=== PATIENT | male | born 1940 | race Caucasian/White ===

== ENCOUNTER → 2018-07-20 | Outpatient (CLI) | payer MEDICARE ==
--- NOTE | 2018-07-20 13:50 | RADIOLOGY REPORT (SQ) ---
EXAM DESCRIPTION: CT CHEST WITHOUT COMPLETED DATE/TIME: 07/20/2018 10:05 am REASON FOR STUDY: DYSPNEA (R06.00) R06.00 DYSPNEA, UNSPECIFIED COMPARISON: Chest radiograph 2008 TECHNIQUE: CT scan performed of the chest without intravenous contrast. Images reviewed with lung, soft tissue and bone windows. Reconstructed coronal and sagittal MPR images reviewed. All images st ored on PACS. All CT scanners at this facility use dose modulation, iterative reconstruction, and/or weight based d osing when appropriate to reduce radiation dose to as low as reasonably achievable (ALARA). [facility]: Dose Right [facility]: CareDose [facility]: Dose Right [facility]: Teradose 4D [facility]: [employer] RADIATION DOSE: CT Rad equipment meets quality standard of care and radiation dose reduction techniq ues were employed. CTDIvol: 9.5 mGy. DLP: 403 mGy-cm. mGy. LIMITATIONS: No technical limitations. FINDINGS: LUNGS AND PLEURA: Extensive apical scarring. Generalized emphysematous changes. HILAR AND MEDIASTINAL STRUCTURES: No identified masses or abnormal nodes. No obvious aneurysm. HEART AND VASCULAR STRUCTURES: No aneurysm. No pericardial effusion. UPPER ABDOMEN: No significant findings. Limited exam. THYROID AND OTHER SOFT TISSUES: No masses. No adenopathy. BONES: No significant finding. HARDWARE: None in the chest. OTHER: No other significant findings. IMPRESSION: Severe emphysematous changes. Extensive apical scarring and right midzone scarring. TECHNICAL DOCUMENTATION: JOB ID: [id number] Quality ID # [id number]: Final reports with documentation of one or more dose reduction techniques (e.g., Au tomated exposure control, adjustment of the mA and/or kV according to patient size, use of iterative reconstruction technique) 2010 [employer]- All Rights Reserved Reading location - IP/workstation name: [email or web address]
[2018-07-21 12:37] LABS: ANTICHROMATIN AB <0.2 AI (0.0-0.9); CENTROMERE B AB <0.2 AI (0.0-0.9); JO-1 ANTIBODY (ANACOMP) <0.2 AI (0.0-0.9); SJOGREN'S ANTI-SS-B AB <0.2 AI (0.0-0.9); SJOGREN'S SS-A ANTIBODY <0.2 AI (0.0-0.9)
[2018-07-21 14:38] LABS: DNA DOUBLE STRAND ANTIBODY ANA 3 IU/mL (0-9)
[2018-07-21 15:37] LABS: CYTOPLASMIC (C-ANCA) <1:20 titer (Neg:<1:20)
[2018-07-22 07:10] LABS: ATYPICAL PANCA <1:20 titer (Neg:<1:20); PERINUCLEAR (P-ANCA) <1:20 titer (Neg:<1:20)
== END ==
LOC: RAD 09:42
PROVIDERS: ATTEND Internal Medicine Pulmonary Disease
DX: J43.9 Emphysema, unspecified (principal); R06.00 Dyspnea, unspecified
CPT/HCPCS: 36415; 71250; 86021; 86225; 86235; 86430

== ENCOUNTER → 2019-10-22 | Outpatient (CLI) | payer MEDICARE ==
--- NOTE | 2019-10-22 09:33 | RADIOLOGY REPORT (SQ) ---
EXAM DESCRIPTION: CT CHEST WITHOUT COMPLETED DATE/TIME: 10/22/2019 9:17 am REASON FOR STUDY: (J43.2)CENTRILOBULAR EMPHYSEMA J43.2 CENTRILOBULAR EMPHYSEMA COMPARISON: CT chest 07/21/2019, 07/20/2018 TECHNIQUE: CT scan performed of the chest without intravenous contrast. Images reviewed with lung, soft tissue and bone windows. Reconstructed coronal and sagittal MPR images reviewed. All images st ored on PACS. All CT scanners at this facility use dose modulation, iterative reconstruction, and/or weight based d osing when appropriate to reduce radiation dose to as low as reasonably achievable (ALARA). [facility]: Dose Right [facility]: CareDose [facility]: Dose Right [facility]: Teradose 4D [facility]: [employer] RADIATION DOSE: CT Rad equipment meets quality standard of care and radiation dose reduction techniq ues were employed. CTDIvol: 3.9 mGy. DLP: 170 mGy-cm. mGy. LIMITATIONS: No technical limitations. FINDINGS: LUNGS AND PLEURA: End-stage appearance of obstructive lung disease with massive hyperinfla tion and hyperlucency. Biapical stable pleuroparenchymal scarring is present. No worrisome nodules. No acute infiltrates. No pleural effusion or pneumothorax. HILAR AND MEDIASTINAL STRUCTURES: No identified masses or abnormal nodes. No obvious aneurysm. HEART AND VASCULAR STRUCTURES: No aneurysm. No pericardial effusion. Calcified aortic valve, heavil y calcified coronary arteries UPPER ABDOMEN: No significant findings. Limited exam. THYROID AND OTHER SOFT TISSUES: No masses. No adenopathy. BONES: No significant finding. HARDWARE: None in the chest. OTHER: No other significant findings. IMPRESSION: Obstructive lung disease. TECHNICAL DOCUMENTATION: JOB ID: [id number] Quality ID # [id number]: Final reports with documentation of one or more dose reduction techniques (e.g., Au tomated exposure control, adjustment of the mA and/or kV according to patient size, use of iterative reconstruction technique) 2010 [employer]- All Rights Reserved Reading location - IP/workstation name: [email or web address]
== END ==
LOC: RAD 08:47
PROVIDERS: ATTEND Internal Medicine Pulmonary Disease
DX: J43.2 Centrilobular emphysema (principal)
CPT/HCPCS: 71250

== ENCOUNTER 2020-06-26 16:01 | Inpatient (IN) | payer MEDICARE ==
--- NOTE | 2020-06-26 17:08 | ER Document Report ---
ED General - General Chief Complaint: Shortness Of Breath Stated Complaint: BREATHING PROBLEMS Time Seen by Provider: 06/26/20 17:07 Primary Care Provider: SANIYA TUTTLE MD [Primary Care Provider] - Follow up as needed TRAVEL OUTSIDE OF THE [place] IN LAST 30 DAYS: No - HPI Notes: 79-year-old male presents with shortness of breath. Patient has a history of COPD on chronic home O2 ranging between 3 to 4 L. He is noted increased shortness of breath from his baseline for the past 3 to 4 days, has become progressively worse. He has a cough which is productive of a brown thick sputum and then notes he has a white thin sputum that comes from his nose. He is on chronic prednisone. EMS was at his house today, he said he received a nebulizer treatment but overall refused transfer to the ED. 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 He states that he was swabbed for Covid but is he is unsure of the results. He states at home mostly and has had exposure with about a dozen or so family members. He denies chest pain, fever, GI symptoms. - Related Data Home Medications: silvastatin, advair, ipratropium, prednisone, ventoin Past Medical History - General Information source: Patient - Social History Smoking Status: Former Smoker Family History: Reviewed & Not Pertinent Pulmonary Medical History: Reports: Hx COPD Review of Systems - Review of Systems Constitutional: denies: Fever EENT: Nose congestion Cardiovascular: denies: Chest pain Respiratory: Cough, Short of breath Gastrointestinal: No symptoms reported Genitourinary: No symptoms reported Male Genitourinary: No symptoms reported Musculoskeletal: No symptoms reported Skin: No symptoms reported Hematologic/Lymphatic: No symptoms reported Neurological/Psychological: No symptoms reported Physical Exam - Vital signs Vitals: Resp Pulse Ox 29 H 98 06/26/20 16:12 06/26/20 16:12 - General General appearance: Alert - HEENT Head: Normocephalic, Atraumatic Extraocular movements intact: Yes Pupils: PERRL Neck: Supple - Respiratory Respiratory status: Other - Able to speak in full sentences though with audible wheezing. No: Tripod position Breath sounds: Decreased air movement, Wheezing - Cardiovascular Rhythm: Regular Heart sounds: Normal auscultation Normal capillary refill: Yes - Abdominal Tenderness: Nontender - Rectal Stool: Heme negative - Extremities General lower extremity: No: Edema - Neurological Neuro grossly intact: Yes Cognition: Normal Orientation: AAOx4 - Psychological Associated symptoms: Normal affect - Skin Skin Temperature: Warm Course - Re-evaluation Re-evalutation: 75-year-old male history COPD on chronic home O2 here with progressively worsening shortness of breath from baseline with productive cough. On exam patient has audible wheezing, though he is able to speak in full sentences, he has fairly decreased air movement in the lower lung moreno. His oxygen saturations are appropriate on supplemental oxygen. Concern for COPD exacerbation, have ordered DuoNeb, Solu-Medrol and magnesium. Concerned that he may have acute viral process causing exacerbation, have ordered Covid and influenza swabs. He is at risk for bacterial pneumonia as well. Will start with initial treatments and reassess. EKG is nonischemic. 06/26/20 18:18 Hemoglobin has resulted at 4.3, this was rechecked twice. Have ordered type and screen and iron studies as he appears to have a severe microcytic anemia. With WBC and platelets within normal limits. Electrolytes within normal limits, creatinine within normal limits, no UTI 06/26/20 18:50 Patient has been consented for blood. He denies dark or tarry stools. Denies previous known history of anemia. Hemoccult is negative 06/26/20 19:39 Chest x-ray reviewed, per radiology there with concern for CHF based on the appearance, I did check a BNP which has now resulted at greater than 9000. Have ordered 20 mg IV Lasix as he is going to get 2 units of blood 06/26/20 19:53 [address] with admission with Dr. Saenz. He requests rapid Covid and surgical consultation given the new anemia. Will be admitted to [facility] 06/26/20 19:57 Dr. Martinez will see the patient in consultation during his admission - Vital Signs Vital signs: Temp Pulse Resp BP Pulse Ox 23 H 109/56 L 100 06/26/20 18:01 06/26/20 19:00 06/26/20 19:01 - Laboratory Result Diagrams: 06/26/20 17:25 06/26/20 16:23 Laboratory results interpreted by me: 06/26/20 06/26/20 06/26/20 16:23 16:23 17:25 RBC 2.92 L Hgb 4.3 L* Hct 16.9 L MCV 58 L MCH 14.8 L MCHC 25.6 L RDW 21.0 H Carbon Dioxide 38 H Anion Gap 4 L BUN 26 H NT-Pro-B Natriuret Pep 9080 H Total Protein 6.2 L Albumin 3.4 L Urine Protein Ur Leukocyte Esterase Crossmatch 06/26/20 06/26/20 17:25 18:01 RBC Hgb Hct MCV MCH MCHC RDW Carbon Dioxide Anion Gap BUN NT-Pro-B Natriuret Pep Total Protein Albumin Urine Protein 30 H Ur Leukocyte Esterase LARGE H Crossmatch See Detail - Diagnostic Test Radiology reviewed: Image reviewed, Reports reviewed - EKG Interpretation by Me Additional EKG results interpreted by me: EKG is interpreted by me. Sinus rhythm, rate 91. Slightly prolonged QRS with RBBB, QTC within normal limits. No ST segment elevation or depressions. Discharge - Discharge Clinical Impression: COPD exacerbation, Microcytic anemia, Transfusion of blood during current hospitalisation, Elevated brain natriuretic peptide (BNP) level Disposition: ADMITTED INPATIENT Admitting Provider: Dany (Hospitalist) Unit Admitted: IMCU Referrals: SANIYA TUTTLE MD [Primary Care Provider] - Follow up as needed
[2020-06-26 17:09] LABS: BLOOD UREA NITROGEN 26 mg/dL (7-20); CALCIUM 8.4 mg/dL (8.4-10.2); GLUCOSE 99 mg/dL (75-110)
[2020-06-26 17:10] LABS: ALBUMIN 3.4 g/dL (3.5-5.0); ALKALINE PHOSPHATASE 74 U/L (38-126); ASPARTATE AMINO TRANSFERASE 26 U/L (17-59); BILIRUBIN,DIRECT 0.1 mg/dL (0.0-0.4); BILIRUBIN,TOTAL 0.6 mg/dL (0.2-1.3); CARBON DIOXIDE 38 mmol/L (22-30); CHLORIDE 100 mmol/L (98-107); POTASSIUM 4.8 mmol/L (3.6-5.0); TOTAL PROTEIN 6.2 g/dL (6.3-8.2)
[2020-06-26] MEDS ORDERED: METHYLPREDNISOLONE INJ 125 MG/2 ML SDV IV ONE (17:17)
[2020-06-26] MEDS ORDERED: IPRATROPIUM/ALBUTEROL 0.5-2.5 MG/3 ML AMPUL NEB ONE ×2 (17:17→18:55)
[2020-06-26] MEDS ORDERED: GUAIFENESIN 600 MG TABLET.SA PO ONE (17:18)
[2020-06-26 17:33] LABS: ANION GAP 4 (5-19)
--- NOTE | 2020-06-26 17:34 | EKG REPORT ---
SEVERITY:- ABNORMAL ECG - SINUS RHYTHM INCOMPLETE RIGHT BUNDLE BRANCH BLOCK : Confirmed by: Obi Turcios MD 26-Jun-2020 17:34:23
--- NOTE | 2020-06-26 17:44 | RADIOLOGY REPORT (SQ) ---
EXAM DESCRIPTION: CHEST SINGLE VIEW IMAGES COMPLETED DATE/TIME: 06/26/2020 5:19 pm REASON FOR STUDY: SOB COMPARISON: 08/24/2008 EXAM PARAMETERS: NUMBER OF VIEWS: One view. TECHNIQUE: Single frontal radiographic view of the chest acquired. RADIATION DOSE: NA LIMITATIONS: None. FINDINGS: LUNGS AND PLEURA: Hyper aeration with flattening of the hemidiaphragms. Increased perihil ar lung markings. No focal consolidation. Small bilateral pleural effusions. No pneumothorax. MEDIASTINUM AND HILAR STRUCTURES: No masses. Contour normal. HEART AND VASCULAR STRUCTURES: Cardiomegaly with central vascular congestion. BONES: No acute findings. HARDWARE: None in the chest. OTHER: No other significant finding. IMPRESSION: Constellation of findings suggest CHF exacerbation. Superimposed infection is not exclu ded. TECHNICAL DOCUMENTATION: JOB ID: [id number] 2010 [email or web address]- All Rights Reserved Reading location - IP/workstation name: [email or web address]
[2020-06-26] MEDS: MAGNESIUM SULFATE/D5W 1 GM/100 ML RTUPB IV SCH ×2 (17:46→18:08)
[2020-06-26 17:50] LABS: ABSOLUTE BASOPHILS # (AUTO) 0.1 10^3/uL (0.0-0.2); ABSOLUTE EOSINOPHILS # (AUTO) 0.1 10^3/uL (0.0-0.6); ABSOLUTE LYMPHOCYTES (AUTO) 1.5 10^3/uL (0.5-4.7); ABSOLUTE MONOCYTES (AUTO) 0.8 10^3/uL (0.1-1.4); ABSOLUTE NEUT (AUTO) 6.1 10^3/uL (1.7-8.2); BASOPHILS % (AUTO) 0.6 % (0-2); EOSINOPHILS % (AUTO) 0.7 % (0-6); HEMATOCRIT 16.9 % (37.9-51.0); LYMPHOCYTES % (AUTO) 17.5 % (13-45); MEAN CORPUSCULAR HEMOGLOBIN 14.8 pg (27.0-33.4); MEAN CORPUSCULAR HGB CONC 25.6 g/dL (32.0-36.0); MONOCYTES % (AUTO) 9.2 % (3-13); PLATELET COUNT 280 10^3/uL (150-450); RED BLOOD COUNT 2.92 10^6/uL (4.35-5.55); TOTAL CELLS COUNTED % (AUTO) 100 %; WHITE BLOOD COUNT 8.5 10^3/uL (4.0-10.5)
[2020-06-26 17:52] LABS: MEAN CORPUSCULAR VOLUME 58 fl (80-97)
[2020-06-26 17:58] LABS: HYPOCHROMASIA 3+; POLYCHROMASIA SLIGHT
[2020-06-26 17:59] LABS: ANISOCYTOSIS 3+; OVALOCYTES 1+; PLATELET COMMENT ADEQUATE; POIKILOCYTOSIS 1+; TEAR DROP CELLS SLIGHT
[2020-06-26 18:00] LABS: HEMOGLOBIN 4.3 g/dL (13.5-17.0)
[2020-06-26 18:03] LABS: APPEARANCE,URINE SLIGHTLY-CLOUDY; BILIRUBIN,URINE NEGATIVE (NEGATIVE); COLOR,URINE YELLOW; GLUCOSE, URINE NEGATIVE (NEGATIVE); KETONES,URINE NEGATIVE (NEGATIVE); LEUKOCYTE ESTERASE,URINE LARGE (NEGATIVE); NITRITE,URINE NEGATIVE (NEGATIVE); PROTEIN,URINE 30 mg/dL (NEGATIVE); URINE SPECIFIC GRAVITY 1.014; UROBILINOGEN,URINE NEGATIVE mg/dL (<2.0)
[2020-06-26] MEDS ORDERED: NORMAL SALINE 250 ML IV PRN ×2 (18:48)
[2020-06-26] MEDS ORDERED: DOXYCYCLINE HYCLATE 100 MG TABLET PO ONE (18:49)
[2020-06-26 18:53] LABS: IRON(TIBC) 10.5 ug/dL (49-181)
[2020-06-26 18:56] LABS: ABSOLUTE RETICS # 0.075 10^6/uL (0.028-0.122)
[2020-06-26 18:58] LABS: A TYPE INFLUENZA AG NEGATIVE (NEGATIVE); B INFLUENZA AG NEGATIVE (NEGATIVE)
[2020-06-26 19:30] LABS: FERRITIN 4.73 ng/mL (17.9-464.0)
[2020-06-26] MEDS ORDERED: FUROSEMIDE INJ/PF 20 MG/2 ML SDV IV ONE (19:37)
[2020-06-26 20:03] LABS: FOLATE > 20.00 ng/mL (>2.76)
[2020-06-26] MEDS ORDERED: MAG HYDROX/AL HYDROX/SIMETH SUSP 30 ML UDCUP PO PRN (20:22)
[2020-06-26] MEDS ORDERED: ALBUTEROL SULFATE 0.083% NEB 2.5 MG/3 ML AMPUL NEB PRN (20:22)
[2020-06-26] MEDS ORDERED: ONDANSETRON HCL INJ/PF 4 MG/2 ML SDV IV PRN (20:22)
[2020-06-26] MEDS ORDERED: ACETAMINOPHEN 325 MG TABLET PO PRN (20:22)
--- NOTE | 2020-06-26 21:00 | PDOC H&P ---
History of Present Illness Admission Date/PCP: 06/26/20 20:01 SANIYA TUTTLE MD Patient complains of: Shortness of breath History of Present Illness: JAVIER MARTINEZ is a 79 year old male with history of COPD on 3L nasal cannula, who presents to the hospital with complaint of worsening shortness of breath and cough. Patient has chronic cough as he has extensive smoking history. However in the past 3 days he shortness of breath has progressed and he is having more cough with production of whitish and sometimes yellowish sputum. He reached the point where he felt like he was about to pass out today Because of his shortness of breath. He denies any chest pain. He denies any fevers or chills. He denies any sick exposures. He also denies any history of heart failure or any cardiac problems. He has been having swelling in his lower extremities. However he denies orthopnea PND. He follows with Dr. Junior for his COPD. He denies any hematemesis, hematochezia, melena. His last colonoscopy was several years ago. His voice is very hoarse but he says this is not new and his voice has been the same way for over 10 years. Past Medical History Pulmonary Medical History: Reports: Chronic Obstructive Pulmonary Disease (COPD) Past Surgical History Past Surgical History: Denies: Cardiac Catheterization, Coronary Artery Bypass Graft Social History Smoking Status: Former Smoker Frequency of Alcohol Use: None Hx Recreational Drug Use: No - Advance Directive Resuscitation Status: Full Code Family History Family History: None Parental Family History Reviewed: Yes Children Family History Reviewed: Yes Sibling(s) Family History Reviewed.: Yes Medication/Allergy Allergies/Adverse Reactions: No Known Allergies Allergy (Unverified 06/26/20 22:11) Review of Systems Constitutional: ABSENT: chills, fever(s) Eyes: ABSENT: visual disturbances Nose, Mouth, and Throat: ABSENT: headache(s) Cardiovascular: PRESENT: dyspnea on exertion. ABSENT: chest pain, orthropnea Respiratory: PRESENT: cough, dyspnea Gastrointestinal: ABSENT: abdominal pain, coffee ground emesis, hematemesis, hematochezia, melena, nausea, vomiting Genitourinary: ABSENT: hematuria Musculoskeletal: ABSENT: muscle weakness Integumentary: ABSENT: diaphoresis Neurological: PRESENT: dizziness Psychiatric: ABSENT: anxiety Endocrine: ABSENT: polyuria Hematologic/Lymphatic: ABSENT: easy bleeding Physical Exam Vital Signs: Temp Pulse Resp BP Pulse Ox 23 H 109/56 L 100 06/26/20 18:01 06/26/20 19:00 06/26/20 19:01 Intake & Output 06/25/20 06/26/20 06/27/20 06:59 06:59 06:59 Intake Total 200 Balance 200 Weight 46.266 kg General appearance: PRESENT: no acute distress, cooperative, thin. ABSENT: hard of hearing Eye exam: PRESENT: conjunctiva pale Neck exam: ABSENT: JVD Respiratory exam: PRESENT: crackles, decreased breath sounds, symmetrical, tachypnea, unlabored, other - Conversationally dyspneic. ABSENT: wheezes Cardiovascular exam: PRESENT: RRR, +S1, +S2. ABSENT: tachycardia GI/Abdominal exam: PRESENT: soft. ABSENT: distended, firm, guarding, rebound, rigid, tenderness Extremities exam: PRESENT: pedal edema, +2 edema Neurological exam: PRESENT: alert, awake, oriented to person, oriented to place, oriented to time, oriented to situation Psychiatric exam: ABSENT: agitated, anxious Focused psych exam: ABSENT: pressured speech Skin exam: ABSENT: jaundice Results Laboratory Results: 06/26/20 17:25 06/26/20 16:23 06/26/20 06/26/20 06/26/20 16:23 16:23 16:23 WBC Cancelled RBC Cancelled Hgb Cancelled Hct Cancelled MCV Cancelled MCH Cancelled MCHC Cancelled RDW Cancelled Plt Count Cancelled Seg Neutrophils % Cancelled Retic Count (auto) Sodium 142.3 Potassium 4.8 Chloride 100 Carbon Dioxide 38 H Anion Gap 4 L BUN 26 H Creatinine 0.82 Est GFR ( Amer) > 60 Glucose 99 Calcium 8.4 Iron 10.5 L TIBC 402 % Saturation 3 Ferritin 4.73 L Total Bilirubin 0.6 AST 26 Alkaline Phosphatase 74 Total Protein 6.2 L Albumin 3.4 L Vitamin B12 740.0 Folate > 20.00 Urine Color Urine Appearance Urine pH Ur Specific [place] Urine Protein Urine Glucose (UA) Urine Ketones Urine Blood Urine Nitrite Ur Leukocyte Esterase Urine WBC (Auto) Urine RBC (Auto) Blood Type Antibody Screen 06/26/20 06/26/20 06/26/20 17:25 17:25 17:25 WBC 8.5 RBC 2.92 L Hgb 4.3 L* Hct 16.9 L MCV 58 L MCH 14.8 L MCHC 25.6 L RDW 21.0 H Plt Count 280 Seg Neutrophils % 72.0 Retic Count (auto) 2.60 Sodium Potassium Chloride Carbon Dioxide Anion Gap BUN Creatinine Est GFR ( Amer) Glucose Calcium Iron TIBC % Saturation Ferritin Total Bilirubin AST Alkaline Phosphatase Total Protein Albumin Vitamin B12 Folate Urine Color YELLOW Urine Appearance SLIGHTLY-CLOUDY Urine pH 6.0 Ur Specific [place] 1.014 Urine Protein 30 H Urine Glucose (UA) NEGATIVE Urine Ketones NEGATIVE Urine Blood NEGATIVE Urine Nitrite NEGATIVE Ur Leukocyte Esterase LARGE H Urine WBC (Auto) 83 Urine RBC (Auto) 6 Blood Type Antibody Screen 06/26/20 18:01 WBC RBC Hgb Hct MCV MCH MCHC RDW Plt Count Seg Neutrophils % Retic Count (auto) Sodium Potassium Chloride Carbon Dioxide Anion Gap BUN Creatinine Est GFR ( Amer) Glucose Calcium Iron TIBC % Saturation Ferritin Total Bilirubin AST Alkaline Phosphatase Total Protein Albumin Vitamin B12 Folate Urine Color Urine Appearance Urine pH Ur Specific [place] Urine Protein Urine Glucose (UA) Urine Ketones Urine Blood Urine Nitrite Ur Leukocyte Esterase Urine WBC (Auto) Urine RBC (Auto) Blood Type O POSITIVE Antibody Screen NEGATIVE 06/26/20 16:23 NT-Pro-B Natriuret Pep 9080 H Impressions: Chest X-Ray 06/26/20 16:12 IMPRESSION: Constellation of findings suggest CHF exacerbation. Superimposed infection is not excluded. Assessment and Plan - Diagnosis (1) Iron deficiency anemia due to chronic blood loss Is this a current diagnosis for this admission?: Yes Plan: Severe anemia suspected to be secondary to chronic blood loss. He has not noted any obvious bleeding. Hemodynamically stable. We will have surgery consult for endoscopic evaluation. Transfuse 2 units of PRBC and repeat CBC Monitor closely in IMCU. Check coags (2) COPD exacerbation Is this a current diagnosis for this admission?: Yes Plan: Was informed patient was wheezing on presentation. Not wheezing on my examination but with very diminished breath sounds. Has already received steroids in ER. I will put him on DuoNeb treatments, prednisone and some azithromycin. He does have end-stage COPD and uses oxygen at home. Will benefit from palliative care consultation upon discharge. Consider calling patient's singe winder Dr. Junior in am especially regarding periprocedural assessment. (3) Acute CHF Qualifiers: Heart failure type: unspecified Qualified Code(s): I50.9 - Heart failure, unspecified Is this a current diagnosis for this admission?: Yes Plan: Aggravated by anemia. Possible componenet of RHF from lung disease. Elevated BNP and lower extremity swelling, crackles on exam. Crackles possibly may be due to parenchymal scarring as well which was noted on CT earlier this year. We will diurese gently with 20 mg IV Lasix. We will give a dose in between blood transfusions as well. Check echocardiogram in the morning. EF unknown. (4) Acute on chronic respiratory failure with hypoxia and hypercapnia Is this a current diagnosis for this admission?: Yes Plan: Chronic CO2 retainer likely but patient was significantly conversationally dyspneic during my evaluation. Obtained venous blood gas which shows PCO2 of 90 with respiratory acidosis. Will place on BiPAP through the night. VBG in AM. Continue treatment for COPD. (5) Cachexia Is this a current diagnosis for this admission?: Yes Plan: Likely secondary to COPD. CT chest earlier this year did not identify any masses under showed end-stage obstructive disease. (6) Advanced care planning/counseling discussion Is this a current diagnosis for this admission?: Yes Plan: Discussed CODE STATUS with patient. Patient wants to be a full code. He is also okay with intubation in the absence of cardiac arrest. Okay with endoscopic evaluation. However does not want to remain intubated on mechanical ventilation for over 30 days under any state status. - Time Time Spent with patient: 35 or more minutes Anticipated Discharge Disposition: Home with Home Health Anticipated Discharge Timeframe: within 48 hours
[2020-06-26 21:10] LABS: VENOUS BLOOD BASE EXCESS 12.4 mmol/L; VENOUS BLOOD HCO3 40.4 mmol/L (20-32); VENOUS BLOOD PH 7.27 (7.30-7.42)
[2020-06-26 21:11] LABS: VENOUS BLOOD PCO2 90.4 mmHg (35-63)
[2020-06-26] MEDS: SIMVASTATIN 40 MG TABLET PO SCH (22:53)
[2020-06-26] MEDS ORDERED: MAGNESIUM SULFATE/D5W 1 GM/100 ML RTUPB IV ONE (22:58)
[2020-06-26] MEDS ORDERED: FUROSEMIDE INJ/PF 40 MG/4 ML SDV IV ONE (23:00)
[2020-06-27] MEDS ORDERED: IPRATROPIUM/ALBUTEROL 0.5-2.5 MG/3 ML AMPUL NEB SCH
[2020-06-27] MEDS: IPRATROPIUM/ALBUTEROL 0.5-2.5 MG/3 ML AMPUL NEB SCH ×4 (02:33→20:10)
[2020-06-27 05:35] LABS: INTERNATIONAL RATION (INR) 1.01; PROTHROMBIN TIME 13.5 SEC (11.4-15.4)
[2020-06-27 05:36] LABS: PARTIAL THROMBOPLASTIN TIME 31.8 SEC (23.5-35.8)
[2020-06-27 05:39] LABS: PLATELET COUNT 207 10^3/uL (150-450)
[2020-06-27 05:57] LABS: VENOUS BLOOD BASE EXCESS 12.1 mmol/L; VENOUS BLOOD PH 7.3 (7.30-7.42)
[2020-06-27 06:00] LABS: VENOUS BLOOD PCO2 86.3 mmHg (35-63)
[2020-06-27 06:10] LABS: ANION GAP 6 (5-19); BLOOD UREA NITROGEN 24 mg/dL (7-20); CARBON DIOXIDE 39 mmol/L (22-30); CHLORIDE 96 mmol/L (98-107); GLUCOSE 135 mg/dL (75-110); PHOSPHORUS 4.8 mg/dL (2.5-4.5); POTASSIUM 4.2 mmol/L (3.6-5.0)
[2020-06-27 06:16] LABS: HEMATOCRIT 26.2 % (37.9-51.0); MEAN CORPUSCULAR HEMOGLOBIN 19.8 pg (27.0-33.4); RED BLOOD COUNT 3.98 10^6/uL (4.35-5.55); WHITE BLOOD COUNT 5.5 10^3/uL (4.0-10.5)
[2020-06-27 06:17] LABS: RED CELL DISTRIBUTION WIDTH 30.5 % (11.5-14.0)
[2020-06-27 06:19] LABS: MEAN CORPUSCULAR VOLUME 66 fl (80-97)
[2020-06-27 06:21] LABS: HEMOGLOBIN 7.9 g/dL (13.5-17.0)
[2020-06-27 06:23] LABS: ABSOLUTE LYMPHOCYTES# (MANUAL) 0.4 10^3/uL (0.5-4.7); ABSOLUTE MONOCYTES # (MANUAL) 0.1 10^3/uL (0.1-1.4); BASOPHILS % (MANUAL) 0 % (0-2); EOSINOPHILS % (MANUAL) 0 % (0-6); LYMPHOCYTES % (MANUAL) 7 % (13-45); MONOCYTES % (MANUAL) 2 % (3-13); SEGMENTED NEUTROPHILS % (MAN) 91 % (42-78); TOTAL CELLS COUNTED 100
[2020-06-27 06:28] LABS: TOXIC GRANULATION SLIGHT
[2020-06-27 06:29] LABS: ANISOCYTOSIS 4+; BURR CELLS SLIGHT; OVALOCYTES 3+; POIKILOCYTOSIS 4+; POLYCHROMASIA 2+; SCHISTOCYTES 3+; TEAR DROP CELLS 3+
--- NOTE | 2020-06-27 06:29 | PDOC CONSULTATION ---
Consultation Consult Date: 06/27/20 Provider Consulted: SURGICAL SURGICALIST Consult reason:: Anemia History of Present Illness Admission Date/PCP: 06/26/20 20:01 SANIYA TUTTLE MD History of Present Illness: JAVIER MARTINEZ is a 79 year old male seen in consultation at the request of the hospitalist service. This is a patient with severe, chronic anemia. He reports shortness of breath, lower extremity swelling, malaise, and fatigue. He denies melena, hematochezia, hematemesis, nausea, vomiting, abdominal pain, history of NSAID use, recent smoking, use of oral anticoagulants. The patient is a very poor historian. His last colonoscopy was approximately 15 years ago, and he does not remember the results. He has severe COPD and wears oxygen at home. He reports that his breathing has been worse for the last 1 week. Past Medical History Pulmonary Medical History: Reports: Chronic Obstructive Pulmonary Disease (COPD) Psychiatric Medical History: Denies: Depression Past Surgical History Past Surgical History: Denies: Cardiac Catheterization, Coronary Artery Bypass Graft Social History Smoking Status: Former Smoker Frequency of Alcohol Use: None Hx Recreational Drug Use: No Drugs: None Hx Prescription Drug Abuse: No - Advance Directive Resuscitation Status: Full Code Family History Family History: None Parental Family History Reviewed: Yes Children Family History Reviewed: Yes Sibling(s) Family History Reviewed.: Yes Medication/Allergy Allergies/Adverse Reactions: No Known Allergies Allergy (Unverified 06/26/20 22:11) Review of Systems Constitutional: PRESENT: fatigue, weakness. ABSENT: fever(s) Eyes: ABSENT: visual disturbances Ears: ABSENT: hearing changes Nose, Mouth, and Throat: ABSENT: sore throat Cardiovascular: ABSENT: chest pain Respiratory: PRESENT: cough, dyspnea Gastrointestinal: ABSENT: abdominal pain, coffee ground emesis, constipation, diarrhea, heartburn, hematemesis, hematochezia, melena, nausea, vomiting Genitourinary: ABSENT: dysuria Musculoskeletal: ABSENT: back pain Integumentary: ABSENT: pruritus, rash Neurological: PRESENT: weakness. ABSENT: confusion, convulsions Psychiatric: ABSENT: anxiety, depression Endocrine: ABSENT: cold intolerance, heat intolerance Hematologic/Lymphatic: ABSENT: easy bleeding, easy bruising Physical Exam Vital Signs: Temp Pulse Resp BP Pulse Ox 97.6 F 75 20 117/59 L 100 06/27/20 03:56 06/27/20 03:56 06/27/20 03:56 06/27/20 03:56 06/27/20 03:56 Intake & Output 06/25/20 06/26/20 06/27/20 06:59 06:59 06:59 Intake Total 800 Balance 800 Weight 46.266 kg General appearance: PRESENT: no acute distress, cooperative, thin Head exam: PRESENT: atraumatic, normocephalic Eye exam: PRESENT: EOMI, PERRLA. ABSENT: scleral icterus Mouth exam: PRESENT: moist, neck supple Neck exam: ABSENT: meningismus, tenderness, thyromegaly, tracheal deviation Respiratory exam: PRESENT: other - Wearing supplemental oxygen. ABSENT: tachypnea Cardiovascular exam: ABSENT: tachycardia Vascular exam: PRESENT: pallor GI/Abdominal exam: PRESENT: soft. ABSENT: distended, tenderness Rectal exam: PRESENT: deferred Extremities exam: PRESENT: pedal edema Musculoskeletal exam: ABSENT: deformity Neurological exam: PRESENT: alert, awake, oriented to person, oriented to place, oriented to time, oriented to situation Psychiatric exam: ABSENT: agitated, anxious, depressed Focused psych exam: ABSENT: delusional Skin exam: ABSENT: cyanosis, erythema, jaundice Results Laboratory Results: 06/27/20 05:02 06/26/20 06/26/20 06/26/20 16:23 16:23 16:23 WBC Cancelled RBC Cancelled Hgb Cancelled Hct Cancelled MCV Cancelled MCH Cancelled MCHC Cancelled RDW Cancelled Plt Count Cancelled Seg Neutrophils % Cancelled Retic Count (auto) VBG pH VBG pCO2 VBG HCO3 VBG Base Excess Sodium 142.3 Potassium 4.8 Chloride 100 Carbon Dioxide 38 H Anion Gap 4 L BUN 26 H Creatinine 0.82 Est GFR ( Amer) > 60 Glucose 99 Calcium 8.4 Phosphorus Magnesium Iron 10.5 L TIBC 402 % Saturation 3 Ferritin 4.73 L Total Bilirubin 0.6 AST 26 Alkaline Phosphatase 74 Total Protein 6.2 L Albumin 3.4 L Vitamin B12 740.0 Folate > 20.00 Urine Color Urine Appearance Urine pH Ur Specific [place] Urine Protein Urine Glucose (UA) Urine Ketones Urine Blood Urine Nitrite Ur Leukocyte Esterase Urine WBC (Auto) Urine RBC (Auto) Blood Type Antibody Screen 06/26/20 06/26/20 06/26/20 16:23 17:25 17:25 WBC 8.5 RBC 2.92 L Hgb 4.3 L* Hct 16.9 L MCV 58 L MCH 14.8 L MCHC 25.6 L RDW 21.0 H Plt Count 280 Seg Neutrophils % 72.0 Retic Count (auto) VBG pH 7.27 L VBG pCO2 90.4 H* VBG HCO3 40.4 H VBG Base Excess 12.4 Sodium Potassium Chloride Carbon Dioxide Anion Gap BUN Creatinine Est GFR ( Amer) Glucose Calcium Phosphorus Magnesium Iron TIBC % Saturation Ferritin Total Bilirubin AST Alkaline Phosphatase Total Protein Albumin Vitamin B12 Folate Urine Color YELLOW Urine Appearance SLIGHTLY-CLOUDY Urine pH 6.0 Ur Specific [place] 1.014 Urine Protein 30 H Urine Glucose (UA) NEGATIVE Urine Ketones NEGATIVE Urine Blood NEGATIVE Urine Nitrite NEGATIVE Ur Leukocyte Esterase LARGE H Urine WBC (Auto) 83 Urine RBC (Auto) 6 Blood Type Antibody Screen 06/26/20 06/26/20 06/27/20 17:25 18:01 05:02 WBC RBC Hgb Hct MCV MCH MCHC RDW Plt Count Seg Neutrophils % Not Reportable Retic Count (auto) 2.60 VBG pH VBG pCO2 VBG HCO3 VBG Base Excess Sodium Potassium Chloride Carbon Dioxide Anion Gap BUN Creatinine Est GFR ( Amer) Glucose Calcium Phosphorus Magnesium Iron TIBC % Saturation Ferritin Total Bilirubin AST Alkaline Phosphatase Total Protein Albumin Vitamin B12 Folate Urine Color Urine Appearance Urine pH Ur Specific [place] Urine Protein Urine Glucose (UA) Urine Ketones Urine Blood Urine Nitrite Ur Leukocyte Esterase Urine WBC (Auto) Urine RBC (Auto) Blood Type O POSITIVE Antibody Screen NEGATIVE 06/27/20 06/27/20 05:02 05:02 WBC RBC Hgb Hct MCV MCH MCHC RDW Plt Count Seg Neutrophils % Retic Count (auto) VBG pH 7.30 VBG pCO2 86.3 H* VBG HCO3 41.0 H VBG Base Excess 12.1 Sodium 141.0 Potassium 4.2 Chloride 96 L Carbon Dioxide 39 H Anion Gap 6 BUN 24 H Creatinine 0.81 Est GFR ( Amer) > 60 Glucose 135 H Calcium 8.0 L Phosphorus 4.8 H Magnesium 2.7 H Iron TIBC % Saturation Ferritin Total Bilirubin AST Alkaline Phosphatase Total Protein Albumin Vitamin B12 Folate Urine Color Urine Appearance Urine pH Ur Specific [place] Urine Protein Urine Glucose (UA) Urine Ketones Urine Blood Urine Nitrite Ur Leukocyte Esterase Urine WBC (Auto) Urine RBC (Auto) Blood Type Antibody Screen 06/26/20 06/26/20 06/27/20 16:23 20:10 05:02 Troponin I 0.067 0.109 NT-Pro-B Natriuret Pep 9080 H Impressions: Chest X-Ray 06/26/20 16:12 IMPRESSION: Constellation of findings suggest CHF exacerbation. Superimposed infection is not excluded. Assessment & Plan - Diagnosis (1) Anemia Qualifiers: Anemia type: unspecified type Qualified Code(s): D64.9 - Anemia, unspecified Is this a current diagnosis for this admission?: Yes - Plan Summary Plan Summary: 79-year-old male with anemia. His last colonoscopy was approximately 15 years ago. He does not have specific risk factors for peptic ulcer disease. He does not have any symptoms consistent with peptic ulcer disease. Currently, the patient is being worked up for congestive heart failure and a COPD exacerbation. His recent hemoglobin was 4. I would recommend transfusion and medical optimization. There is no sign of active or recent bleeding, to require inpatient endoscopy. I would recommend upper and lower endoscopy after the patient has defervesced from his acute medical illness and has been discharged home. Plan for outpatient endoscopy. Follow-up with [facility] after discharge. Surgery will see again as needed. Please renotify with questions or concerns.
[2020-06-27 06:30] LABS: PLATELET COMMENT ADEQUATE; TARGET CELLS 1+
[2020-06-27] MEDS: PANTOPRAZOLE SODIUM 40 MG TABLET.DR PO SCH (06:48)
[2020-06-27] MEDS ORDERED: FERRIC CARBOXYMALTOSE INJ 750 MG/15 ML VIAL IV ONE (07:54)
[2020-06-27] MEDS: BUDESONIDE NEB 0.25 MG/2 ML AMPUL NEB SCH ×2 (08:01→20:10)
[2020-06-27] MEDS: PREDNISONE 20 MG TABLET PO SCH (09:20)
[2020-06-27] MEDS: CEFTRIAXONE 1 GM/D5W RTU 1 GM/50 ML RTUPB IV SCH (09:21)
[2020-06-27] MEDS: AZITHROMYCIN 250 MG TABLET PO SCH (09:21)
[2020-06-27] MEDS ORDERED: FERRIC CARBOXYMALTOSE 750 MG in NORMAL SALINE 250 ML IV ONE (10:00)
[2020-06-27 11:51] LABS: PATH REVIEW PATHOLOGIST REVIEWED
--- NOTE | 2020-06-27 14:41 | PDOC PROGRESS REPORT ---
Subjective Date:: 06/27/20 Subjective:: JAVIER MARTINEZ is a 79 year old male with history of COPD on 3L nasal cannula, who presents to the hospital with complaint of worsening shortness of breath and cough. Patient has chronic cough as he has extensive smoking history. However in the past 3 days he shortness of breath has progressed and he is having more cough with production of whitish and sometimes yellowish sp utum. He reached the point where he felt like he was about to pass out today Because of his shortness of breath. He denies any chest pain. He denies any fevers or chills. He denies any sick exposures. He also denies any history of heart failure or any cardiac problems. He has been having swelling in his lower extremities. However he denies orthopnea PND. He follows with Dr. Junior for his COPD. He denies any hematemesis, hematochezia, melena. His last colonoscopy was several years ago. His voice is very hoarse but he says this is not new and his voice has been the same way for over 10 years. 06/27/2020. No acute events overnight. Saw patient this afternoon resting in his bed in no apparent distress, reporting improvement of his shortness of breath, patient reporting compliant with his home medication however stating that he does not restrict his fluid, denies any fever, chills, nausea, vomiting, diarrhea, constipation or any urinary symptoms. Last bowel movement was Friday and as per patient it was not melanotic. Denies any easy bleeding, nosebleed, hemoptysis, hematemesis, melena, hematuria or hematochezia. Patient's upper and lower GI endoscopy currently canceled as per surgery as there is no acute sign of bleeding. Outpatient upper and lower GI endoscopy is recommended. Reason For Visit: COPD EXACERBATION Physical Exam Vital Signs: Temp Pulse Resp BP Pulse Ox 97.6 F 75 18 111/52 L 96 06/27/20 11:46 06/27/20 13:54 06/27/20 13:54 06/27/20 11:46 06/27/20 13:54 Intake & Output 06/26/20 06/27/20 06/28/20 06:59 06:59 06:59 Intake Total 800 315 Balance 800 315 Weight 46.266 kg General appearance: PRESENT: no acute distress, thin Head exam: PRESENT: atraumatic, normocephalic Neck exam: ABSENT: carotid bruit, JVD, lymphadenopathy, thyromegaly Respiratory exam: PRESENT: decreased breath sounds, symmetrical, tachypnea, other - Barrel chested. Diminished air movement bilaterally.. ABSENT: rales, rhonchi, wheezes Cardiovascular exam: PRESENT: RRR. ABSENT: diastolic murmur, rubs, systolic mu rmur GI/Abdominal exam: PRESENT: normal bowel sounds, soft. ABSENT: distended, guarding, mass, organolmegaly, rebound, tenderness Neurological exam: PRESENT: alert, awake, oriented to person, oriented to place, oriented to time, oriented to situation, CN II-XII grossly intact. ABSENT: motor sensory deficit Skin exam: PRESENT: dry, intact, warm. ABSENT: cyanosis, rash Results Laboratory Results: 06/27/20 05:02 06/27/20 05:02 06/26/20 06/26/20 06/26/20 16:23 16:23 16:23 WBC Cancelled RBC Cancelled Hgb Cancelled Hct Cancelled MCV Cancelled MCH Cancelled MCHC Cancelled RDW Cancelled Plt Count Cancelled Seg Neutrophils % Cancelled Retic Count (auto) VBG pH VBG pCO2 VBG HCO3 VBG Base Excess Sodium 142.3 Potassium 4.8 Chloride 100 Carbon Dioxide 38 H Anion Gap 4 L BUN 26 H Creatinine 0.82 Est GFR ( Amer) > 60 Glucose 99 Calcium 8.4 Phosphorus Magnesium Iron 10.5 L TIBC 402 % Saturation 3 Ferritin 4.73 L Total Bilirubin 0.6 AST 26 Alkaline Phosphatase 74 Total Protein 6.2 L Albumin 3.4 L Vitamin B12 740.0 Folate > 20.00 TSH Urine Color Urine Appearance Urine pH Ur Specific [place] Urine Protein Urine Glucose (UA) Urine Ketones Urine Blood Urine Nitrite Ur Leukocyte Esterase Urine WBC (Auto) Urine RBC (Auto) Blood Type Antibody Screen 06/26/20 06/26/20 06/26/20 16:23 17:25 17:25 WBC 8.5 RBC 2.92 L Hgb 4.3 L* Hct 16.9 L MCV 58 L MCH 14.8 L MCHC 25.6 L RDW 21.0 H Plt Count 280 Seg Neutrophils % 72.0 Retic Count (auto) VBG pH 7.27 L VBG pCO2 90.4 H* VBG HCO3 40.4 H VBG Base Excess 12.4 Sodium Potassium Chloride Carbon Dioxide Anion Gap BUN Creatinine Est GFR ( Amer) Glucose Calcium Phosphorus Magnesium Iron TIBC % Saturation Ferritin Total Bilirubin AST Alkaline Phosphatase Total Protein Albumin Vitamin B12 Folate TSH Urine Color YELLOW Urine Appearance SLIGHTLY-CLOUDY Urine pH 6.0 Ur Specific [place] 1.014 Urine Protein 30 H Urine Glucose (UA) NEGATIVE Urine Ketones NEGATIVE Urine Blood NEGATIVE Urine Nitrite NEGATIVE Ur Leukocyte Esterase LARGE H Urine WBC (Auto) 83 Urine RBC (Auto) 6 Blood Type Antibody Screen 06/26/20 06/26/20 06/27/20 17:25 18:01 05:02 WBC 5.5 RBC 3.98 L Hgb 7.9 L D Hct 26.2 L MCV 66 L D MCH 19.8 L MCHC 30.0 L RDW 30.5 H Plt Count 207 Seg Neutrophils % Not Reportable Retic Count (auto) 2.60 VBG pH VBG pCO2 VBG HCO3 VBG Base Excess Sodium Potassium Chloride Carbon Dioxide Anion Gap BUN Creatinine Est GFR ( Amer) Glucose Calcium Phosphorus Magnesium Iron TIBC % Saturation Ferritin Total Bilirubin AST Alkaline Phosphatase Total Protein Albumin Vitamin B12 Folate TSH Urine Color Urine Appearance Urine pH Ur Specific [place] Urine Protein Urine Glucose (UA) Urine Ketones Urine Blood Urine Nitrite Ur Leukocyte Esterase Urine WBC (Auto) Urine RBC (Auto) Blood Type O POSITIVE Antibody Screen NEGATIVE 06/27/20 06/27/20 06/27/20 05:02 05:02 05:02 WBC RBC Hgb Hct MCV MCH MCHC RDW Plt Count Seg Neutrophils % Retic Count (auto) VBG pH 7.30 VBG pCO2 86.3 H* VBG HCO3 41.0 H VBG Base Excess 12.1 Sodium 141.0 Potassium 4.2 Chloride 96 L Carbon Dioxide 39 H Anion Gap 6 BUN 24 H Creatinine 0.81 Est GFR ( Amer) > 60 Glucose 135 H Calcium 8.0 L Phosphorus 4.8 H Magnesium 2.7 H Iron TIBC % Saturation Ferritin Total Bilirubin AST Alkaline Phosphatase Total Protein Albumin Vitamin B12 Folate TSH 0.46 L Urine Color Urine Appearance Urine pH Ur Specific [place] Urine Protein Urine Glucose (UA) Urine Ketones Urine Blood Urine Nitrite Ur Leukocyte Esterase Urine WBC (Auto) Urine RBC (Auto) Blood Type Antibody Screen 06/26/20 22:40 Sputum Gram Stain - Final 06/26/20 22:40 Sputum Sputum Culture - Final 06/26/20 06/26/20 06/27/20 16:23 20:10 05:02 Troponin I 0.067 0.109 NT-Pro-B Natriuret Pep 9080 H 06/27/20 12:35 Troponin I 0.079 NT-Pro-B Natriuret Pep Impressions: Chest X-Ray 06/26/20 16:12 IMPRESSION: Constellation of findings suggest CHF exacerbation. Superimposed infection is not excluded. Assessment and Plan - Diagnosis (1) Acute CHF Qualifiers: Heart failure type: unspecified Qualified Code(s): I50.9 - Heart failure, unspecified Is this a current diagnosis for this admission?: Yes Plan: Aggravated by anemia. Possible componenet of RHF from lung disease. Elevated BNP and lower extremity swelling, crackles on exam. Crackles possibly may be due to parenchymal scarring as well which was noted on CT earlier this year. Continue cardiac diet, IV diuretics, beta-blockers, SHRUTI, strict in and out, daily waiting. Status post 2 PRBC transfusion. Pending 2D echo. (2) Acute on chronic respiratory failure with hypoxia and hypercapnia Is this a current diagnosis for this admission?: Yes Plan: Acute on chronic COPD exacerbation. Former heavy smoker. Chronic CO2 retainer likely but patient was significantly conversationally dyspneic during my evaluation. ABG on admission shows PCO2 of 90 with respiratory acidosis. Continue duo nebs, BiPAP, LAMA, LABA, ICS, supplemental oxygen, flutter valve, incentive spirometry, pulmonary toileting. (3) Advanced care planning/counseling discussion Is this a current diagnosis for this admission?: Yes Plan: As per admitting physician notes. "Discussed CODE STATUS with patient. Patient wants to be a full code. He is also okay with intubation in the absence of cardiac arrest. Okay with endoscopic evaluation. However does not want to remain intubated on mechanical ventilation for over 30 days under any state status." (4) Anemia Qualifiers: Anemia type: iron deficiency Iron deficiency anemia type: chronic blood loss Qualified Code(s): D50.0 - Iron deficiency anemia secondary to blood loss (chronic) Is this a current diagnosis for this admission?: Yes Plan: Chronic iron deficiency anemia. Iron panel suggestive of severe iron deficiency anemia. No apparent sign of bleeding. Colonoscopy 15 years ago was normal. Denies any personal family history of upper or lower GI malignancy. Status post 2 PRBC transfusion Status post 1 Injectafer infusion. Surgery has been consulted. No upper or lower GI endoscopy planned on this admission as there is no sign of acute bleeding. Outpatient upper and lower GI endoscopy recommended. Please refer to surgery note. Monitor H&H. Supportive transfusions. Stool guaiac. (5) COPD exacerbation Is this a current diagnosis for this admission?: Yes Plan: History of oxygen dependent COPD. Former heavy smoker. Plan as per #1. (6) Cachexia Is this a current diagnosis for this admission?: Yes Plan: BMI 17.0. Likely secondary to COPD. Denies any history of malignancy. CT chest earlier this year did not identify any masses under showed end-stage obstructive disease. Encourage p.o. intake. Dietitian will be consulted. (8) Malnutrition Qualifiers: Malnutrition type: protein-calorie malnutrition Protein-calorie malnutrition severity: moderate Qualified Code(s): E44.0 - Moderate protein- calorie malnutrition Is this a current diagnosis for this admission?: Yes Plan: BMI 17.0. Likely secondary to COPD. Denies any history of malignancy. CT chest earlier this year did not identify any masses under showed end-stage obstructive disease. Encourage p.o. intake. Dietitian will be consulted. - Time Time Spent with patient: 35 or more minutes Anticipated Discharge Disposition: Home with Home Health Anticipated Discharge Timeframe: within 48 hours
[2020-06-27] MEDS: FUROSEMIDE INJ/PF 40 MG/4 ML SDV IV SCH (18:17)
--- NOTE | 2020-06-27 18:25 | XCELERA REPORT ---
[address] [address] Transthoracic Echocardiogram Report Name: JAVIER MARTINEZ Age: 79 yrs Gender: Male : 1940 Patient Status: Inpatient Patient Location: [address] [place] [address] Study Date: 06/27/2020 10:31 AM History: CHF Height: 65 in Weight: 102 lb BSA: 1.5 m2 Procedure: A complete two-dimensional transthoracic echocardiogram was performed (2D, M-mode, spectral and color flow Doppler). Reason For Study: CHF Previous Evaluation: No previous studies were available. History: CHF. Ordering Physician: EUNICE RIDLEY Performed By: Maryanne Enriquez Interpretation Summary The left ventricle is moderately dilated. Left ventricular systolic function is mildly reduced. The Ejection Fraction estimate is 40-45% The right ventricle is normal in size and function. There is a mild to moderate amount of mitral regurgitation There is mild aortic stenosis There is a mild amount of tricuspid regurgitation There is no pericardial effusion. MMode/2D Measurements & Calculations RVDd: 3.5 cm LVIDd: 4.7 cm FS: 29.1 % Ao root diam: 2.6 cm IVSd: 1.0 cm LVIDs: 3.3 cm EDV(Teich): Ao root area: LVPWd: 1.1 cm 101.2 ml 5.2 cm2 ESV(Teich): 44.6 ml EF(Teich): 55.9 % LVOT diam: 2.0 cmEDV(MOD-sp4): SV(MOD-sp4): LVOT area: 109.4 ml 38.3 ml ESV(MOD-sp4): 71.1 ml 3.1 cm2 EF(MOD-sp4): 35.0 % Doppler Measurements & Calculations MV E max carmela: MV dec slope: Ao V2 max: LV V1 max P.5 cm/sec 236.2 cm/sec 7.3 mmHg MV A max carmela: 686.0 cm/sec2 Ao max PG: LV V1 mean P.8 cm/sec MV dec time: 22.4 mmHg 3.9 mmHg 0.14 sec MV E/A: 0.83 Ao V2 mean: LV V1 max: 166.6 cm/sec 134.9 cm/sec Ao mean PG: LV V1 mean: 12.3 mmHg 92.3 cm/sec Ao V2 VTI: 50.4 cm LV V1 VTI: 30.3 cm NERY(I,D): 1.9 cm2 LV dP/dt: NERY(V,D): 1.8 cm2 14.9 mmHg/s MR max carmela: SV(LVOT): 93.5 ml PA V2 max: PI end-d carmela: 535.1 cm/sec 59.4 cm/sec 112.7 cm/sec MR max PG: PA max P.6 mmHg 1.4 mmHg TR max carmela: 276.0 cm/sec TR max P.9 mmHg Left Ventricle The left ventricle is moderately dilated. There is mild to moderate concentric left ventricular hypertrophy. Left ventricular systolic function is mildly reduced. The Ejection Fraction estimate is 40-45%. Doppler measurements suggest impaired left ventricular relaxation, which is associated with grade I/IV or mild diastolic dysfunction. There is mild global hypokinesis of the left ventricle. Right Ventricle The right ventricle is normal in size and function. Atria The left atrium is mildly dilated. Mitral Valve There is mild mitral leaflet calcification. There is no evidence of mitral valve prolapse. There is no mitral valve stenosis. There is a mild to moderate amount of mitral regurgitation. Aortic Valve The aortic valve is sclerotic and shows some degree of functional abnormality. The aortic valve is mildly calcified. Av Vmax=2.26 m/s Mean PG=12 mm Hg NERY VTI=1.132 cm2. There is mild aortic stenosis. No aortic regurgitation is present. Tricuspid Valve The tricuspid valve is not well visualized secondary to technical limitations. There is no tricuspid stenosis. There is a mild amount of tricuspid regurgitation. Right ventricular systolic pressure is estimated to be elevated at 30-40mmHg. There is mild pulmonary hypertension by echo. Pulmonic Valve The pulmonic valve is normal in structure and function. There is no pulmonic valvular stenosis. There is a mild amount of pulmonic regurgitation. Great Vessels The aortic root is normal size. Effusions There is no pericardial effusion. : EUNICE RIDLEY Anil
[2020-06-27] MEDS: SIMVASTATIN 40 MG TABLET PO SCH (21:23)
[2020-06-28] MEDS: IPRATROPIUM/ALBUTEROL 0.5-2.5 MG/3 ML AMPUL NEB SCH ×4 (02:15→20:04)
[2020-06-28] MEDS: PANTOPRAZOLE SODIUM 40 MG TABLET.DR PO SCH (05:25)
[2020-06-28 07:13] LABS: ABSOLUTE LYMPHOCYTES (AUTO) 1.2 10^3/uL (0.5-4.7); ABSOLUTE NEUT (AUTO) 9.1 10^3/uL (1.7-8.2); BASOPHILS % (AUTO) 0.1 % (0-2); HEMATOCRIT 25.4 % (37.9-51.0); LYMPHOCYTES % (AUTO) 10.8 % (13-45); MEAN CORPUSCULAR HEMOGLOBIN 19.8 pg (27.0-33.4); MEAN CORPUSCULAR HGB CONC 29.8 g/dL (32.0-36.0); MEAN CORPUSCULAR VOLUME 67 fl (80-97); MONOCYTES % (AUTO) 9.1 % (3-13); PLATELET COUNT 221 10^3/uL (150-450); RED BLOOD COUNT 3.83 10^6/uL (4.35-5.55); RED CELL DISTRIBUTION WIDTH 31.6 % (11.5-14.0); TOTAL CELLS COUNTED % (AUTO) 100 %
[2020-06-28 07:20] LABS: BLOOD UREA NITROGEN 22 mg/dL (7-20); CALCIUM 8.1 mg/dL (8.4-10.2); CHLORIDE 94 mmol/L (98-107); GLUCOSE 89 mg/dL (75-110)
[2020-06-28 07:30] LABS: ANION GAP 5 (5-19); CARBON DIOXIDE 39 mmol/L (22-30)
[2020-06-28 08:01] LABS: ANISOCYTOSIS 3+; HYPOCHROMASIA 3+; POIKILOCYTOSIS 2+
[2020-06-28 08:02] LABS: PLATELET COMMENT ADEQUATE; TEAR DROP CELLS 2+
[2020-06-28 08:03] LABS: WHITE BLOOD COUNT 11.3 10^3/uL (4.0-10.5)
[2020-06-28 08:04] LABS: HEMOGLOBIN 7.6 g/dL (13.5-17.0)
[2020-06-28] MEDS: BUDESONIDE NEB 0.25 MG/2 ML AMPUL NEB SCH ×2 (08:09→20:03)
[2020-06-28] MEDS ORDERED: IBUPROFEN 600 MG TABLET PO PRN (09:24)
--- NOTE | 2020-06-28 09:31 | PDOC CONSULTATION ---
Consultation Consult Date: 06/28/20 Provider Consulted: CHRISTIANO MILLER Consult reason:: Congestive heart failure History of Present Illness Admission Date/PCP: 06/26/20 20:01 SANIYA TUTTLE MD Patient complains of: Dyspnea History of Present Illness: JAVIER MARTINEZ is a 79 year old male 1. COPD 2. Nicotine dependence in remission 3. Congestive heart failure He presented with severe anemia. He was evaluated by surgery for possible endoscopy. He has been transfused. He has baseline dyspnea and follows with pulmonary for COPD. However he had more pronounced respiratory distress. Echocardiogram has demonstrated mild LV dysfunction. No prior coronary artery disease is reported. No stents or any recent cardiac stress testing. Patient does not report any chest pain. Former smoker. Now does not smoke. No major surgeries reported No familial illnesses. Past Medical History Pulmonary Medical History: Reports: Chronic Obstructive Pulmonary Disease (COPD) Psychiatric Medical History: Denies: Depression Past Surgical History Past Surgical History: Denies: Cardiac Catheterization, Coronary Artery Bypass Graft Social History Smoking Status: Former Smoker Frequency of Alcohol Use: None Hx Recreational Drug Use: No Drugs: None Hx Prescription Drug Abuse: No - Advance Directive Resuscitation Status: Full Code Family History Family History: None Parental Family History Reviewed: Yes - No familial illnesses Children Family History Reviewed: NA Sibling(s) Family History Reviewed.: NA Medication/Allergy Home Medications: Albuterol Sulfate [Proair HFA Inhalation Aerosol 8.5 gm MDI] 2 puff IH Q4HP PRN 06/27/20 Fluticasone/Salmeterol [Advair 250-50 Diskus 14 Dose/Diskus] 1 puff IH Q12 06/27/20 Ipratropium/Albuterol Sulfate [Duoneb 3 ml Ampul] 1 vial NEB RTQ6 06/27/20 Prednisone [Deltasone 5 mg Tablet] 5 mg PO DAILY 06/27/20 Simvastatin [Zocor 40 mg Tablet] 40 mg PO QPM 06/27/20 Tiotropium [place] [Spiriva Handihaler 5 Cap/Kit (18 Mcg/Cap)] 1 cap IH DAILY 06/27/20 Allergies/Adverse Reactions: No Known Allergies Allergy (Unverified 06/26/20 22:11) Review of Systems Constitutional: PRESENT: as per HPI, fatigue Ears: PRESENT: as per HPI Cardiovascular: PRESENT: dyspnea on exertion, edema, orthropnea Respiratory: PRESENT: as per HPI, cough, other - Hoarseness of the voice Neurological: ABSENT: as per HPI, abnormal gait, abnormal movements, abnormal speech, confusion, convulsions, dizziness, focal weakness, frequent falls, lack of coordination, memory loss, numbness, paresthesias, restless legs, syncope, tingling, tremor(s), vertigo, weakness, other Endocrine: ABSENT: as per HPI, cold intolerance, flushing, heat intolerance, menstrual abnormalities, polydipsia, polyphagia, polyuria, other Physical Exam Vital Signs: Temp Pulse Resp BP Pulse Ox 98.1 F 82 18 119/59 L 96 06/28/20 07:55 06/28/20 08:11 06/28/20 08:11 06/28/20 07:55 06/28/20 08:11 Intake & Output 06/27/20 06/28/20 06/29/20 06:59 06:59 06:59 Intake Total 800 2258 Output Total 1550 Balance 800 708 Weight 46.266 kg 49 kg General appearance: PRESENT: cooperative, thin, well-developed Head exam: PRESENT: atraumatic, normocephalic Eye exam: PRESENT: conjunctiva pale, EOMI Mouth exam: PRESENT: moist Respiratory exam: PRESENT: crackles, decreased breath sounds, prolonged expiratory phas, rales, retraction, symmetrical Cardiovascular exam: PRESENT: RRR, +S1, +S2 Pulses: PRESENT: normal radial pulses GI/Abdominal exam: PRESENT: soft Rectal exam: PRESENT: deferred Neurological exam: PRESENT: alert, awake, oriented to person, oriented to place, oriented to time Psychiatric exam: PRESENT: appropriate affect Skin exam: PRESENT: dry, intact, pallor Results Laboratory Results: 06/28/20 06:10 06/28/20 06:10 06/28/20 06/28/20 06:10 06:10 WBC 11.3 H D RBC 3.83 L Hgb 7.6 L Hct 25.4 L MCV 67 L MCH 19.8 L MCHC 29.8 L RDW 31.6 H Plt Count 221 Seg Neutrophils % 80.0 H Sodium 137.7 Potassium 4.0 Chloride 94 L Carbon Dioxide 39 H Anion Gap 5 BUN 22 H Creatinine 0.75 Est GFR ( Amer) > 60 Glucose 89 Calcium 8.1 L 06/26/20 22:40 Sputum Gram Stain - Final 06/26/20 22:40 Sputum Sputum Culture - Final 06/26/20 06/26/20 06/27/20 16:23 20:10 05:02 Troponin I 0.067 0.109 NT-Pro-B Natriuret Pep 9080 H 06/27/20 12:35 Troponin I 0.079 NT-Pro-B Natriuret Pep EKG Comments: Twelve-lead EKG 06/26/2020. Independently viewed by me. Sinus rhythm, partial right bundle branch block, 91 bpm, QTC is 439 ms. Transthoracic echocardiogram 06/27/2020 Left ventricular ejection fraction 40 to 45% RV is normal in size and function There is mild to moderate mitral regurgitation and mild aortic stenosis. There is mild tricuspid regurgitation There is no pericardial effusion Mean gradient across the aortic valve is 12 mmHg. Calculated aortic valve area is 1.132 cm. Impressions: Chest X-Ray 06/26/20 16:12 IMPRESSION: Constellation of findings suggest CHF exacerbation. Superimposed infection is not excluded. Assessment & Plan - Diagnosis (1) Aortic stenosis Qualifiers: Cardiac valve disease etiology: nonrheumatic Qualified Code(s): I35.0 - No nrheumatic aortic (valve) stenosis Is this a current diagnosis for this admission?: Yes Plan: Calcific aortic stenosis. This is mild Unlikely contributing to the clinical picture This needs to be followed serially. (2) Acute CHF Qualifiers: Heart failure type: unspecified Qualified Code(s): I50.9 - Heart failure, unspecified Is this a current diagnosis for this admission?: Yes Plan: Acute decompensated congestive heart failure LV dysfunction with ejection fraction 40 to 45% Given history of smoking and age underlying coronary artery disease cannot be excluded Given presentation with congestive heart failure further work-up is necessary. Ideally given age cardiac catheterization is preferable. Given recent blood transfusion for anemia we will have to hold off on ischemic evaluation at the moment. Cause of anemia has to be determined. Outpatient surgical follow-up has been arranged. Meanwhile we will continue guideline directed medications for congestive heart failure including SHRUTI inhibitor/ARB, beta-kal and maintenance diuretic. Continue furosemide but transition to oral Consider low-dose beta-kal Consider SHRUTI inhibitor also (3) Anemia Qualifiers: Anemia type: iron deficiency Iron deficiency anemia type: chronic blood loss Qualified Code(s): D50.0 - Iron deficiency anemia secondary to blood loss (chronic) Is this a current diagnosis for this admission?: Yes Plan: Unclear etiology Patient has been evaluated by surgery. Ideally I would think the patient would require endoscopy. Correction of anemia is necessary and also to make sure there is no underlying occult GI bleeding source as ischemic evaluation is being planned.
[2020-06-28] MEDS: AZITHROMYCIN 250 MG TABLET PO SCH (10:06)
[2020-06-28] MEDS: CEFTRIAXONE 1 GM/D5W RTU 1 GM/50 ML RTUPB IV SCH (10:06)
[2020-06-28] MEDS: PREDNISONE 20 MG TABLET PO SCH (10:06)
[2020-06-28] MEDS: FUROSEMIDE INJ/PF 40 MG/4 ML SDV IV SCH ×2 (10:06→18:07)
[2020-06-28] MEDS: LISINOPRIL 5 MG TABLET PO SCH (13:15)
--- NOTE | 2020-06-28 13:45 | PDOC PROGRESS REPORT ---
Subjective Date:: 06/28/20 Subjective:: JAVIER MARTINEZ is a 79 year old male with history of COPD on 3L nasal cannula, who presents to the hospital with complaint of worsening shortness of breath and cough. Patient has chronic cough as he has extensive smoking history. However in the past 3 days he shortness of breath has progressed and he is having more cough with production of whitish and sometimes yellowish sp utum. He reached the point where he felt like he was about to pass out today Because of his shortness of breath. He denies any chest pain. He denies any fevers or chills. He denies any sick exposures. He also denies any history of heart failure or any cardiac problems. He has been having swelling in his lower extremities. However he denies orthopnea PND. He follows with Dr. Junior for his COPD. He denies any hematemesis, hematochezia, melena. His last colonoscopy was several years ago. His voice is very hoarse but he says this is not new and his voice has been the same way for over 10 years. 06/27/2020. No acute events overnight. Saw patient this afternoon resting in his bed in no apparent distress, reporting improvement of his shortness of breath, patient reporting compliant with his home medication however stating that he does not restrict his fluid, denies any fever, chills, nausea, vomiting, diarrhea, constipation or any urinary symptoms. Last bowel movement was Friday and as per patient it was not melanotic. Denies any easy bleeding, nosebleed, hemoptysis, hematemesis, melena, hematuria or hematochezia. Patient's upper and lower GI endoscopy currently canceled as per surgery as there is no acute sign of bleeding. Outpatient upper and lower GI endoscopy is recommended. 06/28/2020. No acute events overnight. Patient still dependent on supplemental oxygen, stating that he is feeling better denies any fever, chills, nausea, vomiting sign of bleeding but hemoglobin has dropped minimally. He is status post iron transfusion yesterday. His upper and lower GI endoscopy has been canceled in favor outpatient follow-up. Cardiology also has seen patient and they are recommending left heart cath as outpatient at some point in future once his hemoglobin is stable and is CHF and COPD exacerbation or under control. Reason For Visit: COPD EXACERBATION Physical Exam Vital Signs: Temp Pulse Resp BP Pulse Ox 97.9 F 74 18 108/60 96 06/28/20 11:59 06/28/20 11:59 06/28/20 11:59 06/28/20 11:59 06/28/20 11:59 Intake & Output 06/27/20 06/28/20 06/29/20 06:59 06:59 06:59 Intake Total 800 2258 50 Output Total 1550 Balance 800 708 50 Weight 46.266 kg 49 kg General appearance: PRESENT: no acute distress, thin, well-developed, well- nourished Head exam: PRESENT: atraumatic, normocephalic Respiratory exam: PRESENT: decreased breath sounds, tachypnea, other - Barrel chested. ABSENT: rales, rhonchi, wheezes Cardiovascular exam: PRESENT: RRR. ABSENT: diastolic murmur, rubs, systolic murmur GI/Abdominal exam: PRESENT: normal bowel sounds, soft. ABSENT: distended, guarding, mass, organolmegaly, rebound, tenderness Neurological exam: PRESENT: alert, awake, oriented to person, oriented to place, oriented to time, oriented to situation, CN II-XII grossly intact. ABSENT: motor sensory deficit Results Laboratory Results: 06/28/20 06:10 06/28/20 06:10 06/28/20 06/28/20 06:10 06:10 WBC 11.3 H D RBC 3.83 L Hgb 7.6 L Hct 25.4 L MCV 67 L MCH 19.8 L MCHC 29.8 L RDW 31.6 H Plt Count 221 Seg Neutrophils % 80.0 H Sodium 137.7 Potassium 4.0 Chloride 94 L Carbon Dioxide 39 H Anion Gap 5 BUN 22 H Creatinine 0.75 Est GFR ( Amer) > 60 Glucose 89 Calcium 8.1 L 06/26/20 22:40 Sputum Gram Stain - Final 06/26/20 22:40 Sputum Sputum Culture - Final 06/26/20 06/26/20 06/27/20 16:23 20:10 05:02 Troponin I 0.067 0.109 NT-Pro-B Natriuret Pep 9080 H 06/27/20 12:35 Troponin I 0.079 NT-Pro-B Natriuret Pep Impressions: Chest X-Ray 11/23/20 16:12 IMPRESSION: Constellation of findings suggest CHF exacerbation. Superimposed infection is not excluded. Assessment and Plan - Diagnosis (1) Acute CHF Qualifiers: Heart failure type: unspecified Qualified Code(s): I50.9 - Heart failure, unspecified Is this a current diagnosis for this admission?: Yes Plan: Acute decompensated systolic heart failure. 2D echo positive for ejection fraction of 40 to 45%. Aggravated by anemia. Possible componenet of RHF from lung disease. Elevated BNP and lower extremity swelling, crackles on exam. Crackles possibly may be due to parenchymal scarring as well which was noted on CT earlier this year. Continue cardiac diet, IV diuretics, beta-blockers, SHRUTI, strict in and out, daily waiting. Status post 2 PRBC transfusion. Cardiology on board. Recommendations noted. Outpatient follow-up with cardiology for possible left heart cath has been recommended once his acute CHF/COPD exacerbation and anemia has been addressed. (2) Acute on chronic respiratory failure with hypoxia and hypercapnia Is this a current diagnosis for this admission?: Yes Plan: Acute on chronic COPD exacerbation. Former heavy smoker. Chronic CO2 retainer likely but patient was significantly conversationally dyspneic during my evaluation. ABG on admission shows PCO2 of 90 with respiratory acidosis. Continue duo nebs, BiPAP, LAMA, LABA, ICS, supplemental oxygen, flutter valve, incentive spirometry, pulmonary toileting. (3) Anemia Qualifiers: Anemia type: iron deficiency Iron deficiency anemia type: chronic blood loss Qualified Code(s): D50.0 - Iron deficiency anemia secondary to blood loss (chronic) Is this a current diagnosis for this admission?: Yes Plan: Chronic iron deficiency anemia. Iron panel suggestive of severe iron deficiency anemia. No apparent sign of bleeding. Colonoscopy 15 years ago was normal. Denies any personal family history of upper or lower GI malignancy. Status post 2 PRBC transfusion Status post 1 Injectafer infusion. Surgery has been consulted. No upper or lower GI endoscopy planned on this admission as there is no sign of acute bleeding. Outpatient upper and lower GI endoscopy recommended. Please refer to surgery note. Monitor H&H. Supportive transfusions. Stool guaiac. (4) COPD exacerbation Is this a current diagnosis for this admission?: Yes Plan: History of oxygen dependent COPD. Former heavy smoker. Plan as per #1. (5) Cachexia Is this a current diagnosis for this admission?: Yes Plan: BMI 17.0. Likely secondary to COPD. Denies any history of malignancy. CT chest earlier this year did not identify any masses under showed end-stage obstructive disease. Encourage p.o. intake. Dietitian will be consulted. (6) Malnutrition Qualifiers: Malnutrition type: protein-calorie malnutrition Protein-calorie malnutrition severity: moderate Qualified Code(s): E44.0 - Moderate protein- calorie malnutrition Is this a current diagnosis for this admission?: Yes Plan: BMI 17.0. Likely secondary to COPD. Denies any history of malignancy. CT chest earlier this year did not identify any masses under showed end-stage obstructive disease. Encourage p.o. intake. Dietitian will be consulted. (7) Advanced care planning/counseling discussion Is this a current diagnosis for this admission?: Yes Plan: As per admitting physician notes. "Discussed CODE STATUS with patient. Patient wants to be a full code. He is also okay with intubation in the absence of cardiac arrest. Okay with endoscopic evaluation. However does not want to remain intubated on mechanical ventilation for over 30 days under any state status." - Time Time Spent with patient: 35 or more minutes Anticipated Discharge Disposition: Home with Home Health Anticipated Discharge Timeframe: within 48 hours
[2020-06-28] MEDS: MEGESTROL ACETATE 20 MG TABLET PO SCH (16:30)
[2020-06-28] MEDS: SIMVASTATIN 40 MG TABLET PO SCH (22:00)
[2020-06-29] MEDS: IPRATROPIUM/ALBUTEROL 0.5-2.5 MG/3 ML AMPUL NEB SCH ×4 (01:25→20:58)
[2020-06-29] MEDS: PANTOPRAZOLE SODIUM 40 MG TABLET.DR PO SCH ×2 (05:39→19:36)
[2020-06-29 06:58] LABS: ABSOLUTE LYMPHOCYTES (AUTO) 1.1 10^3/uL (0.5-4.7); ABSOLUTE MONOCYTES (AUTO) 0.8 10^3/uL (0.1-1.4); BASOPHILS % (AUTO) 0.1 % (0-2); HEMATOCRIT 25.9 % (37.9-51.0); LYMPHOCYTES % (AUTO) 11.1 % (13-45); MEAN CORPUSCULAR HEMOGLOBIN 19.5 pg (27.0-33.4); MEAN CORPUSCULAR HGB CONC 28.9 g/dL (32.0-36.0); MEAN CORPUSCULAR VOLUME 68 fl (80-97); MONOCYTES % (AUTO) 8.1 % (3-13); PLATELET COUNT 226 10^3/uL (150-450); RED BLOOD COUNT 3.84 10^6/uL (4.35-5.55); RED CELL DISTRIBUTION WIDTH 32.6 % (11.5-14.0); SEGMENTED NEUTROPHILS % (AUTO) 80.7 % (42-78); TOTAL CELLS COUNTED % (AUTO) 100 %; WHITE BLOOD COUNT 9.9 10^3/uL (4.0-10.5)
[2020-06-29 07:22] LABS: ALBUMIN 2.9 g/dL (3.5-5.0); ALKALINE PHOSPHATASE 58 U/L (38-126); ASPARTATE AMINO TRANSFERASE 32 U/L (17-59); BILIRUBIN,TOTAL 0.6 mg/dL (0.2-1.3); BLOOD UREA NITROGEN 20 mg/dL (7-20); CALCIUM 8.1 mg/dL (8.4-10.2); CHLORIDE 93 mmol/L (98-107); GLUCOSE 91 mg/dL (75-110); HEMOGLOBIN 7.5 g/dL (13.5-17.0); POTASSIUM 3.2 mmol/L (3.6-5.0); TOTAL PROTEIN 5.5 g/dL (6.3-8.2)
[2020-06-29 07:24] LABS: ANISOCYTOSIS 4+; PLATELET COMMENT ADEQUATE
[2020-06-29 07:26] LABS: OVALOCYTES 1+
[2020-06-29 07:27] LABS: HYPOCHROMASIA 2+; POIKILOCYTOSIS 1+; TEAR DROP CELLS 1+
[2020-06-29 07:41] LABS: ANION GAP 3 (5-19)
[2020-06-29 07:42] LABS: CARBON DIOXIDE 43 mmol/L (22-30)
[2020-06-29] MEDS ORDERED: POTASSIUM CHLORIDE 10 MEQ TABLET.ER PO ONE ×2 (08:05→10:19)
[2020-06-29] MEDS: BUDESONIDE NEB 0.25 MG/2 ML AMPUL NEB SCH ×2 (09:52→20:58)
--- NOTE | 2020-06-29 10:06 | PDOC PROGRESS REPORT ---
Subjective Date:: 06/29/20 Subjective:: JAVIER MARTINEZ is a 79 year old male with history of COPD on 3L nasal cannula, who presents to the hospital with complaint of worsening shortness of breath and cough. Patient has chronic cough as he has extensive smoking history. However in the past 3 days he shortness of breath has progressed and he is having more cough with production of whitish and sometimes yellowish sp utum. He reached the point where he felt like he was about to pass out today Because of his shortness of breath. He denies any chest pain. He denies any fevers or chills. He denies any sick exposures. He also denies any history of heart failure or any cardiac problems. He has been having swelling in his lower extremities. However he denies orthopnea PND. He follows with Dr. Junior for his COPD. He denies any hematemesis, hematochezia, melena. His last colonoscopy was several years ago. His voice is very hoarse but he says this is not new and his voice has been the same way for over 10 years. 06/27/2020. No acute events overnight. Saw patient this afternoon resting in his bed in no apparent distress, reporting improvement of his shortness of breath, patient reporting compliant with his home medication however stating that he does not restrict his fluid, denies any fever, chills, nausea, vomiting, diarrhea, constipation or any urinary symptoms. Last bowel movement was Friday and as per patient it was not melanotic. Denies any easy bleeding, nosebleed, hemoptysis, hematemesis, melena, hematuria or hematochezia. Patient's upper and lower GI endoscopy currently canceled as per surgery as there is no acute sign of bleeding. Outpatient upper and lower GI endoscopy is recommended. 06/28/2020. No acute events overnight. Patient still dependent on supplemental oxygen, stating that he is feeling better denies any fever, chills, nausea, vomiting sign of bleeding but hemoglobin has dropped minimally. He is status post iron transfusion yesterday. His upper and lower GI endoscopy has been canceled in favor outpatient follow-up. Cardiology also has seen patient and they are recommending left heart cath as outpatient at some point in future once his hemoglobin is stable and is CHF and COPD exacerbation or under control. 06/29/2020. No acute events overnight. Endorsing improvement of his symptoms, patient had mild hypercarbia and oxygen demand is at his baseline. Mild drop in hemoglobin with no apparent sign of acute bleeding appetite improving. Denies any fever, chills, nausea, vomiting. Stool occult blood negative. Reason For Visit: COPD EXACERBATION Physical Exam Vital Signs: Temp Pulse Resp BP Pulse Ox 97.7 F 83 18 98/45 L 92 06/29/20 08:21 06/29/20 09:52 06/29/20 09:52 06/29/20 08:17 06/29/20 09:52 Intake & Output 06/28/20 06/29/20 06/30/20 06:59 06:59 06:59 Intake Total 2258 2015 Output Total 1550 2200 Balance 708 -184 Weight 49 kg 47.2 kg General appearance: PRESENT: no acute distress, thin Head exam: PRESENT: atraumatic, normocephalic Neck exam: ABSENT: carotid bruit, JVD, lymphadenopathy, thyromegaly Respiratory exam: PRESENT: clear to auscultation cordell, other - Barrel chested.. ABSENT: rales, rhonchi, wheezes Cardiovascular exam: PRESENT: RRR. ABSENT: diastolic murmur, rubs, systolic murmur GI/Abdominal exam: PRESENT: normal bowel sounds, soft. ABSENT: distended, guarding, mass, organolmegaly, rebound, tenderness Neurological exam: PRESENT: alert, awake, oriented to person, oriented to place, oriented to time, oriented to situation, CN II-XII grossly intact. ABSENT: motor sensory deficit Results Laboratory Results: 06/29/20 06:27 06/29/20 06:27 06/28/20 06/29/20 06/29/20 17:48 06:27 06:27 WBC 9.9 RBC 3.84 L Hgb 7.5 L Hct 25.9 L MCV 68 L MCH 19.5 L MCHC 28.9 L RDW 32.6 H Plt Count 226 Seg Neutrophils % 80.7 H Sodium 139.3 Potassium 3.2 L Chloride 93 L Carbon Dioxide 43 H* Anion Gap 3 L BUN 20 Creatinine 0.73 Est GFR ( Amer) > 60 Glucose 91 Calcium 8.1 L Magnesium 2.4 H Total Bilirubin 0.6 AST 32 Alkaline Phosphatase 58 Total Protein 5.5 L Albumin 2.9 L Stool Occult Blood NEGATIVE 06/26/20 06/26/20 06/27/20 16:23 20:10 05:02 Troponin I 0.067 0.109 NT-Pro-B Natriuret Pep 9080 H 06/27/20 12:35 Troponin I 0.079 NT-Pro-B Natriuret Pep Impressions: Chest X-Ray 06/26/20 16:12 IMPRESSION: Constellation of findings suggest CHF exacerbation. Superimposed infection is not excluded. Assessment and Plan - Diagnosis (1) Acute CHF Qualifiers: Heart failure type: systolic Qualified Code(s): I50.21 - Acute systolic (congestive) heart failure Is this a current diagnosis for this admission?: Yes Plan: Acute decompensated systolic heart failure. 2D echo positive for ejection fraction of 40 to 45%. Denies any history of CAD. Likely aggravated by anemia. Possible componenet of RHF from lung disease. Elevated BNP and lower extremity swelling, crackles on exam. Crackles possibly may be due to parenchymal scarring as well which was noted on CT earlier this year. Continue cardiac diet, IV diuretics, beta-blockers, SHRUTI, strict in and out, daily waiting. Status post 2 PRBC transfusion. Cardiology on board. Recommendations noted. Outpatient follow-up with cardiology for possible left heart cath has been recommended once his acute CHF/COPD exacerbation and anemia has been addressed. (2) Acute on chronic respiratory failure with hypoxia and hypercapnia Is this a current diagnosis for this admission?: Yes Plan: Acute on chronic COPD exacerbation. Persistent hypercarbia. Former heavy smoker. History of oxygen dependence COPD on 2 to 3 L nasal cannula. Chronic CO2 retainer likely but patient was significantly conversationally dyspneic during my evaluation. ABG on admission shows PCO2 of 90 with respiratory acidosis. Continue duo nebs, BiPAP, LAMA, LABA, ICS, supplemental oxygen, flutter valve, incentive spirometry, pulmonary toileting. (3) Anemia Qualifiers: Anemia type: iron deficiency Iron deficiency anemia type: chronic blood loss Qualified Code(s): D50.0 - Iron deficiency anemia secondary to blood loss (chronic) Is this a current diagnosis for this admission?: Yes Plan: Chronic iron deficiency anemia. Iron panel suggestive of severe iron deficiency anemia. No apparent sign of bleeding. Stool guaiac negative. Colonoscopy 15 years ago was normal. Denies any personal family history of upper or lower GI malignancy. Status post 2 PRBC transfusion Status post 1 Injectafer infusion. Surgery has been consulted. No upper or lower GI endoscopy planned on this admission as there is no sign of acute bleeding. Outpatient upper and lower GI endoscopy recommended. Please refer to surgery note. Monitor H&H. Supportive transfusions. Stool guaiac. (4) COPD exacerbation Is this a current diagnosis for this admission?: Yes Plan: History of oxygen dependent COPD. Former heavy smoker. Plan as per #1. (5) Cachexia Is this a current diagnosis for this admission?: Yes Plan: BMI 17.0. Likely secondary to COPD. Denies any history of malignancy. CT chest earlier this year did not identify any masses under showed end-stage obstructive disease. Encourage p.o. intake. Dietitian will be consulted. (6) Malnutrition Qualifiers: Malnutrition type: protein-calorie malnutrition Protein-calorie malnutritio n severity: moderate Qualified Code(s): E44.0 - Moderate protein-calorie malnutrition Is this a current diagnosis for this admission?: Yes Plan: BMI 17.0. Likely secondary to COPD. Denies any history of malignancy. CT chest earlier this year did not identify any masses under showed end-stage obstructive disease. Encourage p.o. intake. Dietitian will be consulted. (7) Advanced care planning/counseling discussion Is this a current diagnosis for this admission?: Yes Plan: As per admitting physician notes. "Discussed CODE STATUS with patient. Patient wants to be a full code. He is also okay with intubation in the absence of cardiac arrest. Okay with endoscopic evaluation. However does not want to remain intubated on mechanical ventilation for over 30 days under any state status." - Time Time Spent with patient: 25-34 minutes Anticipated Discharge Disposition: Home with Home Health Anticipated Discharge Timeframe: within 48 hours
[2020-06-29] MEDS: CEFTRIAXONE 1 GM/D5W RTU 1 GM/50 ML RTUPB IV SCH (10:20)
[2020-06-29] MEDS: MEGESTROL ACETATE 20 MG TABLET PO SCH (10:21)
[2020-06-29] MEDS: PREDNISONE 20 MG TABLET PO SCH (10:21)
[2020-06-29] MEDS: FUROSEMIDE INJ/PF 40 MG/4 ML SDV IV SCH ×2 (10:21→19:36)
[2020-06-29] MEDS: AZITHROMYCIN 250 MG TABLET PO SCH (10:22)
[2020-06-29] MEDS: LISINOPRIL 5 MG TABLET PO SCH (10:22)
[2020-06-29] MEDS: SIMVASTATIN 40 MG TABLET PO SCH (22:18)
[2020-06-30] MEDS: IPRATROPIUM/ALBUTEROL 0.5-2.5 MG/3 ML AMPUL NEB SCH ×4 (02:13→21:16)
[2020-06-30 07:15] LABS: VENOUS BLOOD PH 7.34 (7.30-7.42)
[2020-06-30 07:17] LABS: VENOUS BLOOD PCO2 79.2 mmHg (35-63)
[2020-06-30 07:20] LABS: ABSOLUTE LYMPHOCYTES (AUTO) 1.1 10^3/uL (0.5-4.7); ABSOLUTE MONOCYTES (AUTO) 0.8 10^3/uL (0.1-1.4); ABSOLUTE NEUT (AUTO) 7.3 10^3/uL (1.7-8.2); BASOPHILS % (AUTO) 0.2 % (0-2); EOSINOPHILS % (AUTO) 0.1 % (0-6); HEMATOCRIT 26.1 % (37.9-51.0); LYMPHOCYTES % (AUTO) 12.4 % (13-45); MEAN CORPUSCULAR HEMOGLOBIN 19.7 pg (27.0-33.4); MEAN CORPUSCULAR HGB CONC 28.9 g/dL (32.0-36.0); MEAN CORPUSCULAR VOLUME 68 fl (80-97); MONOCYTES % (AUTO) 8.8 % (3-13); PLATELET COUNT 215 10^3/uL (150-450); RED BLOOD COUNT 3.83 10^6/uL (4.35-5.55); RED CELL DISTRIBUTION WIDTH 33.4 % (11.5-14.0); SEGMENTED NEUTROPHILS % (AUTO) 78.5 % (42-78); TOTAL CELLS COUNTED % (AUTO) 100 %; WHITE BLOOD COUNT 9.2 10^3/uL (4.0-10.5)
[2020-06-30 07:43] LABS: BLOOD UREA NITROGEN 24 mg/dL (7-20); CALCIUM 8.3 mg/dL (8.4-10.2); CHLORIDE 96 mmol/L (98-107); GLUCOSE 91 mg/dL (75-110); POTASSIUM 4.2 mmol/L (3.6-5.0)
[2020-06-30 07:58] LABS: ANION GAP 1 (5-19)
[2020-06-30 08:00] LABS: CARBON DIOXIDE 41 mmol/L (22-30)
[2020-06-30 08:14] LABS: ANISOCYTOSIS 3+; POIKILOCYTOSIS 1+
[2020-06-30 08:15] LABS: PLATELET COMMENT ADEQUATE
[2020-06-30 08:17] LABS: HEMOGLOBIN 7.5 g/dL (13.5-17.0)
[2020-06-30 08:20] LABS: HYPOCHROMASIA 3+
[2020-06-30] MEDS: BUDESONIDE NEB 0.25 MG/2 ML AMPUL NEB SCH ×2 (08:48→21:16)
[2020-06-30] MEDS: CEFTRIAXONE 1 GM/D5W RTU 1 GM/50 ML RTUPB IV SCH (09:42)
[2020-06-30] MEDS: PANTOPRAZOLE SODIUM 40 MG TABLET.DR PO SCH ×2 (09:43→17:25)
[2020-06-30] MEDS: PREDNISONE 20 MG TABLET PO SCH (09:43)
[2020-06-30] MEDS: FUROSEMIDE INJ/PF 40 MG/4 ML SDV IV SCH ×2 (09:43→17:25)
[2020-06-30] MEDS: LISINOPRIL 5 MG TABLET PO SCH (09:43)
[2020-06-30] MEDS: MEGESTROL ACETATE 20 MG TABLET PO SCH (10:47)
--- NOTE | 2020-06-30 11:23 | PDOC PROGRESS REPORT ---
Subjective Date:: 06/30/20 Subjective:: Patient seen and examined. Resting comfortably. Reason For Visit: COPD EXACERBATION Physical Exam Vital Signs: Temp Pulse Resp BP Pulse Ox 97.4 F 72 20 106/51 L 100 06/30/20 07:17 06/30/20 08:48 06/30/20 08:48 06/30/20 07:17 06/30/20 08:48 Intake & Output 06/29/20 06/30/20 07/01/20 06:59 06:59 06:59 Intake Total 2015 1594 Output Total 2199 1779 Balance -184 -185 Weight 47.2 kg 46.8 kg General appearance: PRESENT: no acute distress, thin Head exam: PRESENT: atraumatic, normocephalic Eye exam: PRESENT: conjunctiva pale, EOMI Mouth exam: PRESENT: moist Respiratory exam: PRESENT: decreased breath sounds, prolonged expiratory phas, symmetrical Cardiovascular exam: PRESENT: RRR, +S1, +S2 GI/Abdominal exam: PRESENT: soft Rectal exam: PRESENT: deferred Musculoskeletal exam: PRESENT: ambulatory Neurological exam: PRESENT: alert, awake, oriented to person, oriented to place, oriented to time Psychiatric exam: PRESENT: appropriate affect Skin exam: PRESENT: dry, intact, pallor Results Laboratory Results: 06/30/20 07:01 06/30/20 07:01 06/30/20 06/30/20 06/30/20 07:01 07:01 07:01 WBC 9.2 RBC 3.83 L Hgb 7.5 L Hct 26.1 L MCV 68 L MCH 19.7 L MCHC 28.9 L RDW 33.4 H Plt Count 215 Seg Neutrophils % 78.5 H VBG pH 7.34 VBG pCO2 79.2 H* VBG HCO3 42.0 H VBG Base Excess 14.0 Sodium 138.3 Potassium 4.2 Chloride 96 L Carbon Dioxide 41 H* Anion Gap 1 L BUN 24 H Creatinine 0.73 Est GFR ( Amer) > 60 Glucose 91 Calcium 8.3 L 06/26/20 17:25 Clean Catch Midstream Urine Culture - Final NO GROWTH 2 DAYS 06/26/20 06/26/20 06/27/20 16:23 20:10 05:02 Troponin I 0.067 0.109 NT-Pro-B Natriuret Pep 9080 H 06/27/20 12:35 Troponin I 0.079 NT-Pro-B Natriuret Pep Impressions: Chest X-Ray 06/26/20 16:12 IMPRESSION: Constellation of findings suggest CHF exacerbation. Superimposed infection is not excluded. Assessment & Plan - Diagnosis (1) Aortic stenosis Qualifiers: Cardiac valve disease etiology: nonrheumatic Qualified Code(s): I35.0 - Nonrheumatic aortic (valve) stenosis Is this a current diagnosis for this admission?: Yes Plan: Mild For regular follow up (2) Acute CHF Qualifiers: Heart failure type: systolic Qualified Code(s): I50.21 - Acute systolic (congestive) heart failure Is this a current diagnosis for this admission?: Yes Plan: Doing much better. Probably has more component of COPD driving respiratory distress. GDMT for dilated CMP as feasible. Probable plan for out patient ischemic evaluation. However Anemia needs to be investigated as well.. (3) Anemia Qualifiers: Anemia type: iron deficiency Iron deficiency anemia type: chronic blood loss Qualified Code(s): D50.0 - Iron deficiency anemia secondary to blood loss (chronic) Is this a current diagnosis for this admission?: Yes Plan: Surgery has seen patient No active bleeding now. Watch Hb/HCt - Notes Notes: For now lose dose ACEI Lisinopril at 5 mg daily If possible should challenge with low dose Metoprolol given LV dysfucntion. If limited this can be done as out patient
--- NOTE | 2020-06-30 12:20 | PDOC PROGRESS REPORT ---
Subjective Date:: 06/30/20 Subjective:: JAVIER MARTINEZ is a 79 year old male with history of COPD on 3L nasal cannula, who presents to the hospital with complaint of worsening shortness of breath and cough. Patient has chronic cough as he has extensive smoking history. However in the past 3 days he shortness of breath has progressed and he is having more cough with production of whitish and sometimes yellowish sp utum. He reached the point where he felt like he was about to pass out today Because of his shortness of breath. He denies any chest pain. He denies any fevers or chills. He denies any sick exposures. He also denies any history of heart failure or any cardiac problems. He has been having swelling in his lower extremities. However he denies orthopnea PND. He follows with Dr. Junior for his COPD. He denies any hematemesis, hematochezia, melena. His last colonoscopy was several years ago. His voice is very hoarse but he says this is not new and his voice has been the same way for over 10 years. 06/27/2020. No acute events overnight. Saw patient this afternoon resting in his bed in no apparent distress, reporting improvement of his shortness of breath, patient reporting compliant with his home medication however stating that he does not restrict his fluid, denies any fever, chills, nausea, vomiting, diarrhea, constipation or any urinary symptoms. Last bowel movement was Friday and as per patient it was not melanotic. Denies any easy bleeding, nosebleed, hemoptysis, hematemesis, melena, hematuria or hematochezia. Patient's upper and lower GI endoscopy currently canceled as per surgery as there is no acute sign of bleeding. Outpatient upper and lower GI endoscopy is recommended. 06/28/2020. No acute events overnight. Patient still dependent on supplemental oxygen, stating that he is feeling better denies any fever, chills, nausea, vomiting sign of bleeding but hemoglobin has dropped minimally. He is status post iron transfusion yesterday. His upper and lower GI endoscopy has been canceled in favor outpatient follow-up. Cardiology also has seen patient and they are recommending left heart cath as outpatient at some point in future once his hemoglobin is stable and is CHF and COPD exacerbation or under control. 06/29/2020. No acute events overnight. Endorsing improvement of his symptoms, patient had mild hypercarbia and oxygen demand is at his baseline. Mild drop in hemoglobin with no apparent sign of acute bleeding appetite improving. Denies any fever, chills, nausea, vomiting. Stool occult blood negative. 06/30/2020. No acute events overnight. Patient is still having significant hypercarbia however improved compared to yesterday, does not appear to be in any apparent distress, has been compliant with his BiPAP, denies any fever, chills, nausea, vomiting. Reason For Visit: COPD EXACERBATION Physical Exam Vital Signs: Temp Pulse Resp BP Pulse Ox 97.4 F 72 20 106/51 L 100 06/30/20 10:00 06/30/20 08:48 06/30/20 08:48 06/30/20 07:17 06/30/20 08:48 Intake & Output 06/29/20 06/30/20 07/01/20 06:59 06:59 06:59 Intake Total 2015 1595 50 Output Total 2199 1780 Balance -184 -185 50 Weight 47.2 kg 46.8 kg General appearance: PRESENT: no acute distress, thin Head exam: PRESENT: atraumatic, normocephalic Respiratory exam: PRESENT: clear to auscultation cordell, other - Bilateral chested. ABSENT: rales, rhonchi, wheezes Cardiovascular exam: PRESENT: RRR. ABSENT: diastolic murmur, rubs, systolic m urmur GI/Abdominal exam: PRESENT: normal bowel sounds, soft. ABSENT: distended, guarding, mass, organolmegaly, rebound, tenderness Neurological exam: PRESENT: alert, awake, oriented to person, oriented to place, oriented to time, oriented to situation, CN II-XII grossly intact. ABSENT: motor sensory deficit Results Laboratory Results: 06/30/20 07:01 06/30/20 07:01 06/30/20 06/30/20 06/30/20 07:01 07:01 07:01 WBC 9.2 RBC 3.83 L Hgb 7.5 L Hct 26.1 L MCV 68 L MCH 19.7 L MCHC 28.9 L RDW 33.4 H Plt Count 215 Seg Neutrophils % 78.5 H VBG pH 7.34 VBG pCO2 79.2 H* VBG HCO3 42.0 H VBG Base Excess 14.0 Sodium 138.3 Potassium 4.2 Chloride 96 L Carbon Dioxide 41 H* Anion Gap 1 L BUN 24 H Creatinine 0.73 Est GFR ( Amer) > 60 Glucose 91 Calcium 8.3 L 06/26/20 17:25 Clean Catch Midstream Urine Culture - Final NO GROWTH 2 DAYS 06/26/20 06/26/20 06/27/20 16:23 20:10 05:02 Troponin I 0.067 0.109 NT-Pro-B Natriuret Pep 9080 H 06/27/20 12:35 Troponin I 0.079 NT-Pro-B Natriuret Pep Impressions: Chest X-Ray 06/26/20 16:12 IMPRESSION: Constellation of findings suggest CHF exacerbation. Superimposed infection is not excluded. Assessment and Plan - Diagnosis (1) Acute CHF Qualifiers: Heart failure type: systolic Qualified Code(s): I50.21 - Acute systolic (congestive) heart failure Is this a current diagnosis for this admission?: Yes Plan: Acute decompensated systolic heart failure. 2D echo positive for ejection fraction of 40 to 45%. Denies any history of CAD. Likely aggravated by anemia. Possible componenet of RHF from lung disease. Elevated BNP and lower extremity swelling, crackles on exam. Crackles possibly may be due to parenchymal scarring as well which was noted on CT earlier this year. Continue cardiac diet, IV diuretics, beta-blockers, SHRUTI, strict in and out, daily waiting. Status post 2 PRBC transfusion. Cardiology on board. Recommendations noted. Outpatient follow-up with cardiology for possible left heart cath has been recommended once his acute CHF/COPD exacerbation and anemia has been addressed. (2) Acute on chronic respiratory failure with hypoxia and hypercapnia Is this a current diagnosis for this admission?: Yes Plan: Acute on chronic COPD exacerbation. Persistent hypercarbia. Former heavy smoker. History of oxygen dependence COPD on 2 to 3 L nasal cannula. Chronic CO2 retainer likely but patient was significantly conversationally dyspneic during my evaluation. ABG on admission shows PCO2 of 90 with respiratory acidosis. Continue duo nebs, BiPAP, LAMA, LABA, ICS, supplemental oxygen, flutter valve, incentive spirometry, pulmonary toileting. (3) Anemia Qualifiers: Anemia type: iron deficiency Iron deficiency anemia type: chronic blood loss Qualified Code(s): D50.0 - Iron deficiency anemia secondary to blood loss (chronic) Is this a current diagnosis for this admission?: Yes Plan: Chronic iron deficiency anemia. Iron panel suggestive of severe iron deficiency anemia. No apparent sign of bleeding. Stool guaiac negative. Colonoscopy 15 years ago was normal. Denies any personal family history of upper or lower GI malignancy. Status post 2 PRBC transfusion Status post 1 Injectafer infusion. Surgery has been consulted. No upper or lower GI endoscopy planned on this admission as there is no sign of acute bleeding. Outpatient upper and lower GI endoscopy recommended. Please refer to surgery note. Monitor H&H. Supportive transfusions. Stool guaiac. (4) COPD exacerbation Is this a current diagnosis for this admission?: Yes Plan: History of oxygen dependent COPD. Former heavy smoker. Plan as per #1. (5) Cachexia Is this a current diagnosis for this admission?: Yes Plan: BMI 17.0. Likely secondary to COPD. Denies any history of malignancy. CT chest earlier this year did not identify any masses under showed end-stage obstructive disease. Encourage p.o. intake. Dietitian will be consulted. (6) Malnutrition Qualifiers: Malnutrition type: protein-calorie malnutrition Protein-calorie ma lnutrition severity: moderate Qualified Code(s): E44.0 - Moderate protein- calorie malnutrition Is this a current diagnosis for this admission?: Yes Plan: BMI 17.0. Likely secondary to COPD. Denies any history of malignancy. CT chest earlier this year did not identify any masses under showed end-stage obstructive disease. Encourage p.o. intake. Dietitian will be consulted. (7) Advanced care planning/counseling discussion Is this a current diagnosis for this admission?: Yes Plan: As per admitting physician notes. "Discussed CODE STATUS with patient. Patient wants to be a full code. He is also okay with intubation in the absence of cardiac arrest. Okay with endoscopic evaluation. However does not want to remain intubated on mechanical ventilation for over 30 days under any state status." - Time Time Spent with patient: 25-34 minutes Anticipated Discharge Disposition: Home with Home Health Anticipated Discharge Timeframe: within 24 hours
[2020-06-30] MEDS: SIMVASTATIN 40 MG TABLET PO SCH (21:14)
[2020-07-01] MEDS: IPRATROPIUM/ALBUTEROL 0.5-2.5 MG/3 ML AMPUL NEB SCH ×4 (03:03→21:12)
[2020-07-01 06:08] LABS: VENOUS BLOOD BASE EXCESS 19.2 mmol/L; VENOUS BLOOD HCO3 48.1 mmol/L (20-32); VENOUS BLOOD PH 7.33 (7.30-7.42)
[2020-07-01 06:10] LABS: VENOUS BLOOD PCO2 93.7 mmHg (35-63)
[2020-07-01 06:11] LABS: HEMATOCRIT 27.3 % (37.9-51.0); MEAN CORPUSCULAR HGB CONC 28.6 g/dL (32.0-36.0); MEAN CORPUSCULAR VOLUME 70 fl (80-97); PLATELET COUNT 226 10^3/uL (150-450); WHITE BLOOD COUNT 12.2 10^3/uL (4.0-10.5)
[2020-07-01 07:23] LABS: HEMOGLOBIN 7.8 g/dL (13.5-17.0)
[2020-07-01] MEDS: BUDESONIDE NEB 0.25 MG/2 ML AMPUL NEB SCH ×2 (09:14→21:12)
[2020-07-01] MEDS: CEFTRIAXONE 1 GM/D5W RTU 1 GM/50 ML RTUPB IV SCH (10:46)
[2020-07-01] MEDS: FUROSEMIDE INJ/PF 40 MG/4 ML SDV IV SCH (10:46)
[2020-07-01] MEDS: LISINOPRIL 5 MG TABLET PO SCH (10:47)
[2020-07-01] MEDS: PANTOPRAZOLE SODIUM 40 MG TABLET.DR PO SCH ×2 (10:47→18:38)
[2020-07-01] MEDS: PREDNISONE 20 MG TABLET PO SCH (10:47)
[2020-07-01] MEDS: MEGESTROL ACETATE 20 MG TABLET PO SCH (10:50)
--- NOTE | 2020-07-01 12:18 | PDOC PROGRESS REPORT ---
Subjective Date:: 07/01/20 Subjective:: JAVIER MARTINEZ is a 79 year old male with history of COPD on 3L nasal cannula, who presents to the hospital with complaint of worsening shortness of breath and cough. Patient has chronic cough as he has extensive smoking history. However in the past 3 days he shortness of breath has progressed and he is having more cough with production of whitish and sometimes yellowish sp utum. He reached the point where he felt like he was about to pass out today Because of his shortness of breath. He denies any chest pain. He denies any fevers or chills. He denies any sick exposures. He also denies any history of heart failure or any cardiac problems. He has been having swelling in his lower extremities. However he denies orthopnea PND. He follows with Dr. Junior for his COPD. He denies any hematemesis, hematochezia, melena. His last colonoscopy was several years ago. His voice is very hoarse but he says this is not new and his voice has been the same way for over 10 years. 06/27/2020. No acute events overnight. Saw patient this afternoon resting in his bed in no apparent distress, reporting improvement of his shortness of breath, patient reporting compliant with his home medication however stating that he does not restrict his fluid, denies any fever, chills, nausea, vomiting, diarrhea, constipation or any urinary symptoms. Last bowel movement was Friday and as per patient it was not melanotic. Denies any easy bleeding, nosebleed, hemoptysis, hematemesis, melena, hematuria or hematochezia. Patient's upper and lower GI endoscopy currently canceled as per surgery as there is no acute sign of bleeding. Outpatient upper and lower GI endoscopy is recommended. 06/28/2020. No acute events overnight. Patient still dependent on supplemental oxygen, stating that he is feeling better denies any fever, chills, nausea, vomiting sign of bleeding but hemoglobin has dropped minimally. He is status post iron transfusion yesterday. His upper and lower GI endoscopy has been canceled in favor outpatient follow-up. Cardiology also has seen patient and they are recommending left heart cath as outpatient at some point in future once his hemoglobin is stable and is CHF and COPD exacerbation or under control. 06/29/2020. No acute events overnight. Endorsing improvement of his symptoms, patient had mild hypercarbia and oxygen demand is at his baseline. Mild drop in hemoglobin with no apparent sign of acute bleeding appetite improving. Denies any fever, chills, nausea, vomiting. Stool occult blood negative. 06/30/2020. No acute events overnight. Patient is still having significant hypercarbia however improved compared to yesterday, does not appear to be in any apparent distress, has been compliant with his BiPAP, denies any fever, chills, nausea, vomiting. 07/01/2020. No acute events overnight. Patient comfortable resting in bed no apparent distress, still on supplemental oxygen, unfortunately patient's hypercarbia is worsening, and has worsening leukocytosis, denies any chest pain, shortness of breath, fever, chills, nausea, vomiting, diarrhea, constipation or any urinary symptoms. Reason For Visit: COPD EXACERBATION Physical Exam Vital Signs: Temp Pulse Resp BP Pulse Ox 98.0 F 78 21 H 117/59 L 96 07/01/20 08:05 07/01/20 09:15 07/01/20 09:15 07/01/20 08:05 07/01/20 09:15 Intake & Output 06/30/20 07/01/20 07/02/20 06:59 06:59 06:59 Intake Total 1595 1531 Output Total 1780 400 Balance -185 1131 Weight 46.8 kg 46.8 kg General appearance: PRESENT: no acute distress, other - Cachectic Head exam: PRESENT: atraumatic, normocephalic Respiratory exam: PRESENT: tachypnea, other - Diminished air entry bilaterally. ABSENT: rales, rhonchi, wheezes Cardiovascular exam: PRESENT: RRR. ABSENT: diastolic murmur, rubs, systolic murmur GI/Abdominal exam: PRESENT: normal bowel sounds, soft. ABSENT: distended, guarding, mass, organolmegaly, rebound, tenderness Neurological exam: PRESENT: alert, awake, oriented to person, oriented to place, oriented to time, oriented to situation, CN II-XII grossly intact. ABSENT: motor sensory deficit Results Laboratory Results: 07/01/20 05:56 06/30/20 07:01 07/01/20 07/01/20 05:56 05:56 WBC 12.2 H RBC 3.90 L Hgb 7.8 L Hct 27.3 L MCV 70 L MCH 20.0 L MCHC 28.6 L RDW 34.0 H Plt Count 226 VBG pH 7.33 VBG pCO2 93.7 H* VBG HCO3 48.1 H VBG Base Excess 19.2 06/26/20 06/26/20 06/27/20 16:23 20:10 05:02 Troponin I 0.067 0.109 NT-Pro-B Natriuret Pep 9080 H 06/27/20 12:35 Troponin I 0.079 NT-Pro-B Natriuret Pep Impressions: Chest X-Ray 06/26/20 16:12 IMPRESSION: Constellation of findings suggest CHF exacerbation. Superimposed infection is not excluded. Assessment and Plan - Diagnosis (1) Acute on chronic respiratory failure with hypoxia and hypercapnia Is this a current diagnosis for this admission?: Yes Plan: Acute on chronic COPD exacerbation. Persistent hypercarbia. Former heavy smoker. History of oxygen dependence COPD on 2 to 3 L nasal cannula. Chronic CO2 retainer likely but patient was significantly conversationally dyspneic during my evaluation. ABG on admission shows PCO2 of 90 with respiratory acidosis. Continue duo nebs, BiPAP, LAMA, LABA, ICS, supplemental oxygen, flutter valve, incentive spirometry, pulmonary toileting. (2) Acute CHF Qualifiers: Heart failure type: systolic Qualified Code(s): I50.21 - Acute systolic (congestive) heart failure Is this a current diagnosis for this admission?: Yes Plan: Appears to be compensating. No JVD no bilateral lower extremity edema. Presented with acute decompensated systolic heart failure. 2D echo positive for ejection fraction of 40 to 45%. Denies any history of CAD. Likely aggravated by anemia. Possible componenet of RHF from lung disease. Elevated BNP and lower extremity swelling, crackles on exam. Crackles possibly may be due to parenchymal scarring as well which was noted on CT earlier this year. Continue cardiac diet, IV diuretics, beta-blockers, SHRUTI, strict in and out, daily waiting. Status post 2 PRBC transfusion. Cardiology on board. Recommendations noted. Outpatient follow-up with cardiology for possible left heart cath has been recommended once his acute CHF/COPD exacerbation and anemia has been addressed. (3) Anemia Qualifiers: Anemia type: iron deficiency Iron deficiency anemia type: chronic blood loss Qualified Code(s): D50.0 - Iron deficiency anemia secondary to blood loss (chronic) Is this a current diagnosis for this admission?: Yes Plan: Chronic iron deficiency anemia. Hemoglobin remains a stable. Iron panel suggestive of severe iron deficiency anemia. No apparent sign of bleeding. Stool guaiac negative. Colonoscopy 15 years ago was normal. Denies any personal family history of upper or lower GI malignancy. Status post 2 PRBC transfusion Status post 1 Injectafer infusion. Surgery has been consulted. No upper or lower GI endoscopy planned on this admission as there is no sign of acute bleeding. Outpatient upper and lower GI endoscopy recommended. Please refer to surgery note. Monitor H&H. Supportive transfusions. Stool guaiac. (4) COPD exacerbation Is this a current diagnosis for this admission?: Yes Plan: History of oxygen dependent COPD. Former heavy smoker. Plan as per #1. (5) Cachexia Is this a current diagnosis for this admission?: Yes Plan: BMI 17.0. Likely secondary to COPD. Denies any history of malignancy. CT chest earlier this year did not identify any masses under showed end-stage obstructive disease. Encourage p.o. intake. Dietitian will be consulted. (6) Malnutrition Qualifiers: Malnutrition type: protein-calorie malnutrition Protein-calorie malnutrition severity: moderate Qualified Code(s): E44.0 - Moderate protein- calorie malnutrition Is this a current diagnosis for this admission?: Yes Plan: BMI 17.0. Likely secondary to COPD. Denies any history of malignancy. CT chest earlier this year did not identify any masses under showed end-stage obstructive disease. Encourage p.o. intake. Dietitian will be consulted. (7) Advanced care planning/counseling discussion Is this a current diagnosis for this admission?: Yes Plan: As per admitting physician notes. "Discussed CODE STATUS with patient. Patient wants to be a full code. He is also okay with intubation in the absence of cardiac arrest. Okay with endoscopic evaluation. However does not want to remain intubated on mechanical ventilation for over 30 days under any state status." - Time Time Spent with patient: 25-34 minutes Anticipated Discharge Disposition: Home with Home Health Anticipated Discharge Timeframe: within 72 hours
[2020-07-01] MEDS: FUROSEMIDE 20 MG TABLET PO SCH (18:38)
[2020-07-01] MEDS: SIMVASTATIN 40 MG TABLET PO SCH (21:13)
[2020-07-02] MEDS: IPRATROPIUM/ALBUTEROL 0.5-2.5 MG/3 ML AMPUL NEB SCH ×4 (02:10→21:25)
[2020-07-02 05:57] LABS: ABSOLUTE LYMPHOCYTES (AUTO) 1.2 10^3/uL (0.5-4.7); ABSOLUTE MONOCYTES (AUTO) 0.7 10^3/uL (0.1-1.4); ABSOLUTE NEUT (AUTO) 9.8 10^3/uL (1.7-8.2); BASOPHILS % (AUTO) 0.1 % (0-2); HEMATOCRIT 26.3 % (37.9-51.0); LYMPHOCYTES % (AUTO) 10.2 % (13-45); MEAN CORPUSCULAR HEMOGLOBIN 20.1 pg (27.0-33.4); MEAN CORPUSCULAR HGB CONC 28.5 g/dL (32.0-36.0); MEAN CORPUSCULAR VOLUME 71 fl (80-97); MONOCYTES % (AUTO) 5.9 % (3-13); PLATELET COUNT 223 10^3/uL (150-450); RED BLOOD COUNT 3.71 10^6/uL (4.35-5.55); RED CELL DISTRIBUTION WIDTH 34.9 % (11.5-14.0); SEGMENTED NEUTROPHILS % (AUTO) 83.8 % (42-78); TOTAL CELLS COUNTED % (AUTO) 100 %; WHITE BLOOD COUNT 11.7 10^3/uL (4.0-10.5)
[2020-07-02 06:21] LABS: BLOOD UREA NITROGEN 34 mg/dL (7-20); CALCIUM 8.3 mg/dL (8.4-10.2); CHLORIDE 92 mmol/L (98-107); GLUCOSE 100 mg/dL (75-110); POTASSIUM 4.8 mmol/L (3.6-5.0)
[2020-07-02 06:38] LABS: CARBON DIOXIDE 43 mmol/L (22-30)
[2020-07-02 06:49] LABS: HEMOGLOBIN 7.5 g/dL (13.5-17.0)
[2020-07-02 06:51] LABS: ANION GAP 4 (5-19)
[2020-07-02 06:52] LABS: ANISOCYTOSIS 4+; HYPOCHROMASIA 1+; OVALOCYTES SLIGHT; PLATELET COMMENT ADEQUATE; POIKILOCYTOSIS 2+; TEAR DROP CELLS SLIGHT
[2020-07-02] MEDS: BUDESONIDE NEB 0.25 MG/2 ML AMPUL NEB SCH ×2 (08:39→21:25)
--- NOTE | 2020-07-02 10:17 | PDOC PROGRESS REPORT ---
Subjective Date:: 07/02/20 Subjective:: JAVIER MARTINEZ is a 79 year old male with history of COPD on 3L nasal cannula, who presents to the hospital with complaint of worsening shortness of breath and cough. Patient has chronic cough as he has extensive smoking history. However in the past 3 days he shortness of breath has progressed and he is having more cough with production of whitish and sometimes yellowish sp utum. He reached the point where he felt like he was about to pass out today Because of his shortness of breath. He denies any chest pain. He denies any fevers or chills. He denies any sick exposures. He also denies any history of heart failure or any cardiac problems. He has been having swelling in his lower extremities. However he denies orthopnea PND. He follows with Dr. Junior for his COPD. He denies any hematemesis, hematochezia, melena. His last colonoscopy was several years ago. His voice is very hoarse but he says this is not new and his voice has been the same way for over 10 years. 06/27/2020. No acute events overnight. Saw patient this afternoon resting in his bed in no apparent distress, reporting improvement of his shortness of breath, patient reporting compliant with his home medication however stating that he does not restrict his fluid, denies any fever, chills, nausea, vomiting, diarrhea, constipation or any urinary symptoms. Last bowel movement was Friday and as per patient it was not melanotic. Denies any easy bleeding, nosebleed, hemoptysis, hematemesis, melena, hematuria or hematochezia. Patient's upper and lower GI endoscopy currently canceled as per surgery as there is no acute sign of bleeding. Outpatient upper and lower GI endoscopy is recommended. 06/28/2020. No acute events overnight. Patient still dependent on supplemental oxygen, stating that he is feeling better denies any fever, chills, nausea, vomiting sign of bleeding but hemoglobin has dropped minimally. He is status post iron transfusion yesterday. His upper and lower GI endoscopy has been canceled in favor outpatient follow-up. Cardiology also has seen patient and they are recommending left heart cath as outpatient at some point in future once his hemoglobin is stable and is CHF and COPD exacerbation or under control. 06/29/2020. No acute events overnight. Endorsing improvement of his symptoms, patient had mild hypercarbia and oxygen demand is at his baseline. Mild drop in hemoglobin with no apparent sign of acute bleeding appetite improving. Denies any fever, chills, nausea, vomiting. Stool occult blood negative. 06/30/2020. No acute events overnight. Patient is still having significant hypercarbia however improved compared to yesterday, does not appear to be in any apparent distress, has been compliant with his BiPAP, denies any fever, chills, nausea, vomiting. 07/01/2020. No acute events overnight. Patient comfortable resting in bed no apparent distress, still on supplemental oxygen, unfortunately patient's hypercarbia is worsening, and has worsening leukocytosis, denies any chest pain, shortness of breath, fever, chills, nausea, vomiting, diarrhea, constipation or any urinary symptoms. 07/02/2020. No acute events overnight. Comfortably 7 apparent distress, enjoying his breakfast, stating that he was able to sit in his recliner all day yesterday with no apparent denies any fever, chills, nausea, vomiting, diarrhea, constipation or any urinary symptoms. Patient's hemoglobin is stable, hypercarbia has not improved much, this is likely due to chronic CO2 retention and possibly worsened with contraction alkalosis patient was receiving IV Lasix. Possible discharge home tomorrow with home health and follow-up with pulmonary rehab. Reason For Visit: COPD EXACERBATION Physical Exam Vital Signs: Temp Pulse Resp BP Pulse Ox 98.0 F 86 16 101/53 L 100 07/02/20 04:16 07/02/20 07:58 07/02/20 07:58 07/02/20 04:16 07/02/20 07:58 Intake & Output 07/01/20 07/02/20 07/03/20 06:59 06:59 06:59 Intake Total 1531 1390 Output Total 400 1100 Balance 1131 290 Weight 46.8 kg 48.8 kg General appearance: PRESENT: no acute distress, thin, other - Cachectic Head exam: PRESENT: atraumatic, normocephalic Respiratory exam: PRESENT: symmetrical, other - Shallow breathing. Diminished air entry bilaterally.. ABSENT: rales, rhonchi, wheezes Cardiovascular exam: PRESENT: RRR. ABSENT: diastolic murmur, rubs, systolic murmur GI/Abdominal exam: PRESENT: normal bowel sounds, soft. ABSENT: distended, guarding, mass, organolmegaly, rebound, tenderness Neurological exam: PRESENT: alert, awake, oriented to person, oriented to place, oriented to time, oriented to situation, CN II-XII grossly intact. ABSENT: motor sensory deficit Results Laboratory Results: 07/02/20 05:10 07/02/20 05:10 07/02/20 07/02/20 05:10 05:10 WBC 11.7 H RBC 3.71 L Hgb 7.5 L Hct 26.3 L MCV 71 L MCH 20.1 L MCHC 28.5 L RDW 34.9 H Plt Count 223 Seg Neutrophils % 83.8 H Sodium 138.5 Potassium 4.8 Chloride 92 L Carbon Dioxide 43 H* Anion Gap 4 L BUN 34 H Creatinine 0.69 Est GFR ( Amer) > 60 Glucose 100 Calcium 8.3 L 06/26/20 06/26/20 06/27/20 16:23 20:10 05:02 Troponin I 0.067 0.109 NT-Pro-B Natriuret Pep 9080 H 06/27/20 07/01/20 12:35 05:56 Troponin I 0.079 NT-Pro-B Natriuret Pep 2990 H Impressions: Chest X-Ray 06/26/20 16:12 IMPRESSION: Constellation of findings suggest CHF exacerbation. Superimposed infection is not excluded. Assessment and Plan - Diagnosis (1) Acute on chronic respiratory failure with hypoxia and hypercapnia Is this a current diagnosis for this admission?: Yes Plan: Acute on chronic COPD exacerbation. Persistent hypercarbia. Former heavy smoker. History of oxygen dependence COPD on 2 to 3 L nasal cannula. Chronic CO2 retainer likely but patient was significantly conversationally dyspneic during my evaluation. ABG on admission shows PCO2 of 90 with respiratory acidosis. Continue duo nebs, BiPAP, LAMA, LABA, ICS, supplemental oxygen, flutter valve, incentive spirometry, pulmonary toileting. Possible discharge home tomorrow with home O2 and pulmonary rehab and pulmonology follow-up. (2) Acute CHF Qualifiers: Heart failure type: systolic Qualified Code(s): I50.21 - Acute systolic (congestive) heart failure Is this a current diagnosis for this admission?: Yes Plan: Appears to be compensating. No JVD no bilateral lower extremity edema. Presented with acute decompensated systolic heart failure. 2D echo positive for ejection fraction of 40 to 45%. Denies any history of CAD. Likely aggravated by anemia. Possible componenet of RHF from lung disease. Elevated BNP and lower extremity swelling, crackles on exam. Crackles possibly may be due to parenchymal scarring as well which was noted on CT earlier this year. Continue cardiac diet, p.o. diuretics, SHRUTI, strict in and out. Soft BPs, will benefit from up titration of SHRUTI and initiation of beta-kal once appropriate. Status post 2 PRBC transfusion. Cardiology on board. Recommendations noted. Outpatient follow-up with cardiology for possible left heart cath has been recommended once his acute CHF/COPD exacerbation and anemia has been addressed. (3) Anemia Qualifiers: Anemia type: iron deficiency Iron deficiency anemia type: chronic blood loss Qualified Code(s): D50.0 - Iron deficiency anemia secondary to blood loss (chronic) Is this a current diagnosis for this admission?: Yes Plan: Chronic iron deficiency anemia. Hemoglobin remains a stable. Iron panel suggestive of severe iron deficiency anemia. No apparent sign of bleeding. Stool guaiac negative. Colonoscopy 15 years ago was normal. Denies any personal family history of upper or lower GI malignancy. Status post 2 PRBC transfusion Status post 1 Injectafer infusion. Surgery has been consulted. No upper or lower GI endoscopy planned on this admission as there is no sign of acute bleeding. Outpatient upper and lower GI endoscopy recommended. Please refer to surgery note. Monitor H&H. Supportive transfusions. Stool guaiac. (4) COPD exacerbation Is this a current diagnosis for this admission?: Yes Plan: History of oxygen dependent COPD. Former heavy smoker. Plan as per #1. (5) Cachexia Is this a current diagnosis for this admission?: Yes Plan: BMI 17.0. Likely secondary to COPD. Denies any history of malignancy. CT chest earlier this year did not identify any masses under showed end-stage obstructive disease. Encourage p.o. intake. Dietitian will be consulted. (6) Malnutrition Qualifiers: Malnutrition type: protein-calorie malnutrition Protein-calorie malnutrition severity: moderate Qualified Code(s): E44.0 - Moderate protein- calorie malnutrition Is this a current diagnosis for this admission?: Yes Plan: BMI 17.0. Likely secondary to COPD. Denies any history of malignancy. CT chest earlier this year did not identify any masses under showed end-stage obstructive disease. Encourage p.o. intake. Dietitian will be consulted. (7) Advanced care planning/counseling discussion Is this a current diagnosis for this admission?: Yes Plan: As per admitting physician notes. "Discussed CODE STATUS with patient. Patient wants to be a full code. He is also okay with intubation in the absence of cardiac arrest. Okay with endoscopic evaluation. However does not want to remain intubated on mechanical ventilation for over 30 days under any state status." - Time Time Spent with patient: 25-34 minutes Medications reviewed and adjusted accordingly: Yes Anticipated Discharge Disposition: Home with Home Health Anticipated Discharge Timeframe: within 24 hours
[2020-07-02] MEDS: PANTOPRAZOLE SODIUM 40 MG TABLET.DR PO SCH ×2 (10:42→17:31)
[2020-07-02] MEDS: MEGESTROL ACETATE 20 MG TABLET PO SCH (10:42)
[2020-07-02] MEDS: PREDNISONE 20 MG TABLET PO SCH (10:42)
[2020-07-02] MEDS: FUROSEMIDE 20 MG TABLET PO SCH (10:42)
[2020-07-02] MEDS: CEFTRIAXONE 1 GM/D5W RTU 1 GM/50 ML RTUPB IV SCH (10:43)
[2020-07-02] MEDS: LISINOPRIL 5 MG TABLET PO SCH (10:43)
[2020-07-02] MEDS: SIMVASTATIN 40 MG TABLET PO SCH (21:26)
[2020-07-03] MEDS: IPRATROPIUM/ALBUTEROL 0.5-2.5 MG/3 ML AMPUL NEB SCH ×4 (02:11→19:41)
[2020-07-03 07:03] LABS: VENOUS BLOOD BASE EXCESS 15.7 mmol/L; VENOUS BLOOD PH 7.34 (7.30-7.42)
[2020-07-03 07:07] LABS: VENOUS BLOOD PCO2 83.6 mmHg (35-63)
[2020-07-03 07:43] LABS: BLOOD UREA NITROGEN 33 mg/dL (7-20); CALCIUM 8.5 mg/dL (8.4-10.2); CHLORIDE 93 mmol/L (98-107); GLUCOSE 93 mg/dL (75-110); POTASSIUM 4.7 mmol/L (3.6-5.0)
[2020-07-03 08:09] LABS: ANION GAP 5 (5-19)
[2020-07-03 08:11] LABS: CARBON DIOXIDE 42 mmol/L (22-30)
[2020-07-03] MEDS: BUDESONIDE NEB 0.25 MG/2 ML AMPUL NEB SCH ×2 (08:34→19:41)
[2020-07-03] MEDS: MEGESTROL ACETATE 20 MG TABLET PO SCH (09:10)
[2020-07-03] MEDS: PREDNISONE 20 MG TABLET PO SCH (09:10)
[2020-07-03] MEDS: PANTOPRAZOLE SODIUM 40 MG TABLET.DR PO SCH ×2 (09:10→17:44)
[2020-07-03] MEDS: LISINOPRIL 5 MG TABLET PO SCH (09:10)
[2020-07-03] MEDS: CEFTRIAXONE 1 GM/D5W RTU 1 GM/50 ML RTUPB IV SCH (09:11)
--- NOTE | 2020-07-03 12:45 | PDOC PROGRESS REPORT ---
Subjective Date:: 07/03/20 Subjective:: JAVIER MARTINEZ is a 79 year old male with history of COPD on 3L nasal cannula, who presents to the hospital with complaint of worsening shortness of breath and cough. Patient has chronic cough as he has extensive smoking history. However in the past 3 days he shortness of breath has progressed and he is having more cough with production of whitish and sometimes yellowish sp utum. He reached the point where he felt like he was about to pass out today Because of his shortness of breath. He denies any chest pain. He denies any fevers or chills. He denies any sick exposures. He also denies any history of heart failure or any cardiac problems. He has been having swelling in his lower extremities. However he denies orthopnea PND. He follows with Dr. Junior for his COPD. He denies any hematemesis, hematochezia, melena. His last colonoscopy was several years ago. His voice is very hoarse but he says this is not new and his voice has been the same way for over 10 years. 06/27/2020. No acute events overnight. Saw patient this afternoon resting in his bed in no apparent distress, reporting improvement of his shortness of breath, patient reporting compliant with his home medication however stating that he does not restrict his fluid, denies any fever, chills, nausea, vomiting, diarrhea, constipation or any urinary symptoms. Last bowel movement was Friday and as per patient it was not melanotic. Denies any easy bleeding, nosebleed, hemoptysis, hematemesis, melena, hematuria or hematochezia. Patient's upper and lower GI endoscopy currently canceled as per surgery as there is no acute sign of bleeding. Outpatient upper and lower GI endoscopy is recommended. 06/28/2020. No acute events overnight. Patient still dependent on supplemental oxygen, stating that he is feeling better denies any fever, chills, nausea, vomiting sign of bleeding but hemoglobin has dropped minimally. He is status post iron transfusion yesterday. His upper and lower GI endoscopy has been canceled in favor outpatient follow-up. Cardiology also has seen patient and they are recommending left heart cath as outpatient at some point in future once his hemoglobin is stable and is CHF and COPD exacerbation or under control. 06/29/2020. No acute events overnight. Endorsing improvement of his symptoms, patient had mild hypercarbia and oxygen demand is at his baseline. Mild drop in hemoglobin with no apparent sign of acute bleeding appetite improving. Denies any fever, chills, nausea, vomiting. Stool occult blood negative. 06/30/2020. No acute events overnight. Patient is still having significant hypercarbia however improved compared to yesterday, does not appear to be in any apparent distress, has been compliant with his BiPAP, denies any fever, chills, nausea, vomiting. 07/01/2020. No acute events overnight. Patient comfortable resting in bed no apparent distress, still on supplemental oxygen, unfortunately patient's hypercarbia is worsening, and has worsening leukocytosis, denies any chest pain, shortness of breath, fever, chills, nausea, vomiting, diarrhea, constipation or any urinary symptoms. 07/02/2020. No acute events overnight. Comfortably 7 apparent distress, enjoying his breakfast, stating that he was able to sit in his recliner all day yesterday with no apparent denies any fever, chills, nausea, vomiting, diarrhea, constipation or any urinary symptoms. Patient's hemoglobin is stable, hypercarbia has not improved much, this is likely due to chronic CO2 retention and possibly worsened with contraction alkalosis patient was receiving IV Lasix. Possible discharge home tomorrow with home health and follow-up with pulmonary rehab. 07/03/2020. No acute events overnight. Patient sitting at the edge of the bed using his incentive spirometer, no new complaints, unfortunately patient is still having persistent hypercarbia as is dependent on BiPAP, not sure if it will be safe for patient to be discharged home on BiPAP, I have consulted pulmonology to see if they could help with obtaining with a BiPAP, patient de nies any fever, chills, nausea, vomiting. P.o. tolerant. Reason For Visit: COPD EXACERBATION Physical Exam Vital Signs: Temp Pulse Resp BP Pulse Ox 98.1 F 91 30 H 106/56 L 100 07/03/20 10:55 07/03/20 10:55 07/03/20 11:00 07/03/20 10:55 07/03/20 11:00 Intake & Output 07/02/20 07/03/20 07/04/20 06:59 06:59 06:59 Intake Total 1390 1423 50 Output Total 1100 400 Balance 290 1023 50 Weight 48.8 kg 49.7 kg General appearance: PRESENT: no acute distress, thin, other - Cachectic Head exam: PRESENT: atraumatic, normocephalic Neck exam: ABSENT: carotid bruit, JVD, lymphadenopathy, thyromegaly Respiratory exam: PRESENT: accessory muscle use, decreased breath sounds - Decreased air entry bilaterally., symmetrical, tachypnea, other - Barrel chested.. ABSENT: rales, rhonchi, wheezes Cardiovascular exam: PRESENT: RRR. ABSENT: diastolic murmur, rubs, systolic murmur GI/Abdominal exam: PRESENT: normal bowel sounds, soft. ABSENT: distended, guarding, mass, organolmegaly, rebound, tenderness Neurological exam: PRESENT: alert, awake, oriented to person, oriented to place, oriented to time, oriented to situation, CN II-XII grossly intact. ABSENT: motor sensory deficit Results Laboratory Results: 07/02/20 05:10 07/03/20 06:45 07/03/20 07/03/20 06:45 06:45 VBG pH 7.34 VBG pCO2 83.6 H* VBG HCO3 44.0 H VBG Base Excess 15.7 Sodium 139.7 Potassium 4.7 Chloride 93 L Carbon Dioxide 42 H* Anion Gap 5 BUN 33 H Creatinine 0.70 Est GFR ( Amer) > 60 Glucose 93 Calcium 8.5 06/26/20 06/26/20 06/27/20 16:23 20:10 05:02 Troponin I 0.067 0.109 NT-Pro-B Natriuret Pep 9080 H 06/27/20 07/01/20 12:35 05:56 Troponin I 0.079 NT-Pro-B Natriuret Pep 2990 H Impressions: Chest X-Ray 06/26/20 16:12 IMPRESSION: Constellation of findings suggest CHF exacerbation. Superimposed infection is not excluded. Assessment and Plan - Diagnosis (1) Acute on chronic respiratory failure with hypoxia and hypercapnia Is this a current diagnosis for this admission?: Yes Plan: Acute on chronic COPD exacerbation. Persistent hypercarbia. Former heavy smoker. History of oxygen dependence COPD on 2 to 3 L nasal cannula. Chronic CO2 retainer likely but patient was significantly conversationally dysp neic during my evaluation. ABG on admission shows PCO2 of 90 with respiratory acidosis. Continue duo nebs, BiPAP, LAMA, LABA, ICS, supplemental oxygen, flutter valve, incentive spirometry, pulmonary toileting. Received a complete course of IV antibiotics. Received a complex course of IV steroids. Unfortunately with persistent hypercarbia is not safe to discharge patient home on supplemental oxygen, have consulted pulmonology to see if patient could be discharged home with home health and home BiPAP. Patient will also benefit from pulmonary rehab. Consult has been placed for discharge planning. (2) Acute CHF Qualifiers: Heart failure type: systolic Qualified Code(s): I50.21 - Acute systolic (congestive) heart failure Is this a current diagnosis for this admission?: Yes Plan: Appears to be compensating. No JVD no bilateral lower extremity edema. Presented with acute decompensated systolic heart failure. 2D echo positive for ejection fraction of 40 to 45%. Denies any history of CAD. Likely aggravated by anemia. Possible componenet of RHF from lung disease. Elevated BNP and lower extremity swelling, crackles on exam. Crackles possibly may be due to parenchymal scarring as well which was noted on CT earlier this year. Continue cardiac diet, p.o. diuretics, SHRUTI, strict in and out. Soft BPs, will benefit from up titration of SHRUTI and initiation of beta-kal once appropriate. Status post 2 PRBC transfusion. Cardiology on board. Recommendations noted. Outpatient follow-up with cardiology for possible left heart cath has been recommended once his acute CHF/COPD exacerbation and anemia has been addressed. (3) Anemia Qualifiers: Anemia type: iron deficiency Iron deficiency anemia type: chronic blood loss Qualified Code(s): D50.0 - Iron deficiency anemia secondary to blood loss (chronic) Is this a current diagnosis for this admission?: Yes Plan: Chronic iron deficiency anemia. Hemoglobin remains a stable. Iron panel suggestive of severe iron deficiency anemia. No apparent sign of bleeding. Stool guaiac negative. Colonoscopy 15 years ago was normal. Denies any personal family history of upper or lower GI malignancy. Status post 2 PRBC transfusion Status post 1 Injectafer infusion. Surgery has been consulted. No upper or lower GI endoscopy planned on this admission as there is no sign of acute bleeding. Outpatient upper and lower GI endoscopy recommended. Please refer to surgery note. Monitor H&H. Supportive transfusions. Stool guaiac. (4) COPD exacerbation Is this a current diagnosis for this admission?: Yes Plan: History of oxygen dependent COPD. Former heavy smoker. Plan as per #1. (5) Cachexia Is this a current diagnosis for this admission?: Yes Plan: Patient gaining some weight. Presented with BMI 17.0. Likely secondary to COPD. Denies any history of malignancy. CT chest earlier this year did not identify any masses under showed end-stage obstructive disease. Encourage p.o. intake. Dietitian will be consulted. (6) Malnutrition Qualifiers: Malnutrition type: protein-calorie malnutrition Protein-calorie malnutrition severity: moderate Qualified Code(s): E44.0 - Moderate protein- calorie malnutrition Is this a current diagnosis for this admission?: Yes Plan: BMI 17.0. Likely secondary to COPD. Denies any history of malignancy. CT chest earlier this year did not identify any masses under showed end-stage obstructive disease. Encourage p.o. intake. Dietitian will be consulted. (7) Advanced care planning/counseling discussion Is this a current diagnosis for this admission?: Yes Plan: As per admitting physician notes. "Discussed CODE STATUS with patient. Patient wants to be a full code. He is also okay with intubation in the absence of cardiac arrest. Okay with endosco pic evaluation. However does not want to remain intubated on mechanical ventilation for over 30 days under any state status." - Time Time Spent with patient: 25-34 minutes Anticipated Discharge Disposition: Home with Home Health Anticipated Discharge Timeframe: within 72 hours
[2020-07-03 13:00] LABS: ABSOLUTE LYMPHOCYTES (AUTO) 1.4 10^3/uL (0.5-4.7); ABSOLUTE MONOCYTES (AUTO) 0.8 10^3/uL (0.1-1.4); ABSOLUTE NEUT (AUTO) 10.8 10^3/uL (1.7-8.2); BASOPHILS % (AUTO) 0.3 % (0-2); EOSINOPHILS % (AUTO) 0.1 % (0-6); HEMATOCRIT 26.7 % (37.9-51.0); LYMPHOCYTES % (AUTO) 10.6 % (13-45); MEAN CORPUSCULAR HEMOGLOBIN 20.9 pg (27.0-33.4); MEAN CORPUSCULAR HGB CONC 28.9 g/dL (32.0-36.0); MEAN CORPUSCULAR VOLUME 72 fl (80-97); PLATELET COUNT 216 10^3/uL (150-450); RED BLOOD COUNT 3.69 10^6/uL (4.35-5.55); RED CELL DISTRIBUTION WIDTH 36.2 % (11.5-14.0); TOTAL CELLS COUNTED % (AUTO) 100 %
[2020-07-03 13:26] LABS: HEMOGLOBIN 7.7 g/dL (13.5-17.0)
[2020-07-03 13:32] LABS: ANISOCYTOSIS 4+; HYPOCHROMASIA 1+; PLATELET COMMENT ADEQUATE
[2020-07-03 13:33] LABS: OVALOCYTES 1+; POIKILOCYTOSIS 1+; TEAR DROP CELLS SLIGHT
[2020-07-03] MEDS: SIMVASTATIN 40 MG TABLET PO SCH (23:02)
[2020-07-04] MEDS: IPRATROPIUM/ALBUTEROL 0.5-2.5 MG/3 ML AMPUL NEB SCH ×2 (02:16→09:17)
[2020-07-04 06:41] LABS: HEMATOCRIT 28.1 % (37.9-51.0); HEMOGLOBIN 8.2 g/dL (13.5-17.0); MEAN CORPUSCULAR HEMOGLOBIN 21.2 pg (27.0-33.4); MEAN CORPUSCULAR HGB CONC 29.2 g/dL (32.0-36.0); MEAN CORPUSCULAR VOLUME 73 fl (80-97); PLATELET COUNT 215 10^3/uL (150-450); RED BLOOD COUNT 3.86 10^6/uL (4.35-5.55); RED CELL DISTRIBUTION WIDTH 37.7 % (11.5-14.0); WHITE BLOOD COUNT 10.1 10^3/uL (4.0-10.5)
[2020-07-04 06:55] LABS: BLOOD UREA NITROGEN 38 mg/dL (7-20); CALCIUM 8.6 mg/dL (8.4-10.2); CHLORIDE 95 mmol/L (98-107); GLUCOSE 90 mg/dL (75-110); POTASSIUM 4.7 mmol/L (3.6-5.0)
[2020-07-04 07:25] LABS: ANION GAP 1 (5-19)
[2020-07-04 07:26] LABS: CARBON DIOXIDE 42 mmol/L (22-30)
[2020-07-04 07:28] LABS: ANISOCYTOSIS 4+; HYPOCHROMASIA 1+
[2020-07-04 07:29] LABS: OVALOCYTES 1+; PLATELET COMMENT ADEQUATE; POIKILOCYTOSIS 1+
[2020-07-04] MEDS: BUDESONIDE NEB 0.25 MG/2 ML AMPUL NEB SCH (09:17)
[2020-07-04] MEDS: MEGESTROL ACETATE 20 MG TABLET PO SCH (10:00)
[2020-07-04] MEDS: LISINOPRIL 5 MG TABLET PO SCH (10:00)
[2020-07-04] MEDS: PANTOPRAZOLE SODIUM 40 MG TABLET.DR PO SCH (10:00)
[2020-07-04] MEDS ORDERED: FUROSEMIDE 20 MG TABLET PO SCH (10:00)
[2020-07-04 14:08] VITALS: BP 117/59
--- NOTE | 2020-07-04 19:27 | PDOC DISCHARGE SUMMARY ---
Impression - Admit/DC Date/PCP Admission Date/Primary Care Provider: 06/26/20 20:01 SANIYA TUTTLE MD Discharge Date: 07/04/20 - Discharge Diagnosis (1) Iron deficiency anemia due to chronic blood loss Is this a current diagnosis for this admission?: Yes (2) COPD exacerbation Is this a current diagnosis for this admission?: Yes (3) Acute CHF Is this a current diagnosis for this admission?: Yes (4) Acute on chronic respiratory failure with hypoxia and hypercapnia Is this a current diagnosis for this admission?: Yes (5) Cachexia Is this a current diagnosis for this admission?: Yes (6) Advanced care planning/counseling discussion Is this a current diagnosis for this admission?: Yes - Additional Information Resuscitation Status: Full Code Discharge Diet: Cardiac Discharge Activity: Activity As Tolerated, Balance Activity w/Rest, Weigh Daily Referrals: SHANTEL JUNIOR MD [ACTIVE STAFF] - 07/05/20 2:30 pm CHRISTIANO MILLER MD [ACTIVE STAFF] - 07/11/20 10:45 am SANIYA TUTTLE MD [Primary Care Provider] - 07/13/20 1:15 pm SANIYA LEVINE FNP [NO LOCAL MD] - 07/10/20 9:00 am (-This appointment is the appointment you need to go to before you see Dr. Lu (gastrologist).) Prescriptions: Ferrous Sulfate [Feosol 325 mg Tablet] 325 mg PO ASDIR PRN #30 tablet PRN Reason: Furosemide [Lasix 20 mg Tablet] 20 mg PO DAILY #30 tablet Lisinopril [Prinivil 5 mg Tablet] 2.5 mg PO DAILY #30 tablet Home Medications: Albuterol Sulfate [Proair HFA Inhalation Aerosol 8.5 gm MDI] 2 puff IH Q4HP PRN 06/27/20 Fluticasone/Salmeterol [Advair 250-50 Diskus 14 Dose/Diskus] 1 puff IH Q12 06/27/20 Ipratropium/Albuterol Sulfate [Duoneb 3 ml Ampul] 1 vial NEB RTQ6 06/27/20 Prednisone [Deltasone 5 mg Tablet] 5 mg PO DAILY 06/27/20 Simvastatin [Zocor 40 mg Tablet] 40 mg PO QPM 06/27/20 Tiotropium [place] [Spiriva Handihaler 5 Cap/Kit (18 Mcg/Cap)] 1 cap IH DAILY 06/27/20 Ferrous Sulfate [Feosol 325 mg Tablet] 325 mg PO ASDIR PRN #30 tablet 07/04/20 Furosemide [Lasix 20 mg Tablet] 20 mg PO DAILY #30 tablet 07/04/20 Lisinopril [Prinivil 5 mg Tablet] 2.5 mg PO DAILY #30 tablet 07/04/20 History of Present Illiness History of Present Illness: As per admitting HPI on 06/26/2020 "JAVIER MARTINEZ is a 79 year old male with history of COPD on 3L nasal cannula, who presents to the hospital with complaint of worsening shortness of breath and cough. Patient has chronic cough as he has extensive smoking history. However in the past 3 days he shortness of breath has progressed and he is having more cough with production of whitish and sometimes yellowish sputum. He reached the point where he felt like he was about to pass out today Because of his shortness of breath. He denies any chest pain. He denies any fevers or chills. He denies any sick exposures. He also denies any history of heart failure or any cardiac problems. He has been having swelling in his lower extremities. However he denies orthopnea PND. He follows with Dr. Junior for his COPD. He denies any hematemesis, hematochezia, melena. His last colonoscopy was several years ago. His voice is very hoarse but he says this is not new and his voice has been the same way for over 10 years." Hospital Course Hospital Course: Acute on chronic respiratory failure with hypoxia and hypercapnia / COPD exacerbation Acute on chronic COPD exacerbation. Persistent hypercarbia. Former heavy smoker. History of oxygen dependence COPD on 2 to 3 L nasal cannula. Chronic CO2 retainer likely but patient was significantly conversationally dyspneic during my evaluation. ABG on admission shows PCO2 of 90 with respiratory acidosis. Continue duo nebs, BiPAP, LAMA, LABA, ICS, supplemental oxygen, flutter valve, incentive spirometry, pulmonary toileting. Received a complete course of IV antibiotics. Received a complex course of IV steroids. Follow up with pulmonology to evaluate for home BiPAP and pulmonary rehab. Patient will also benefit from pulmonary rehab. Consult has been placed for discharge planning. Patient with end stage COPD. Goals of care conversation with patient as per my colleague and previous provider. Patient wants to be a full code. He is also okay with intubation in the absence of cardiac arrest. Okay with endoscopic evaluation. However does not want to remain intubated on mechanical ventilation for over 30 days under any state status. I believe patient will benefit from further conversation regarding code status with PCP to gain a better understanding of his current status. Acute CHF Appears to be compensating. No JVD no bilateral lower extremity edema. Presented with acute decompensated systolic heart failure. 2D echo positive for ejection fraction of 40 to 45%. Continue cardiac diet, p.o. diuretics, SHRUTI, strict in and out. Soft BPs, will benefit from up titration of SHRUTI and initiation of beta-kal once appropriate. Cardiology on board. Outpatient follow-up with cardiology for possible left heart cath has been recommended once his acute CHF/COPD exacerbation and anemia has been addressed. Anemia Chronic iron deficiency anemia. Hemoglobin remains a stable. Iron panel suggestive of severe iron deficiency anemia. No apparent sign of bleeding. Stool guaiac negative. Status post 2 PRBC transfusion Status post 1 Injectafer infusion. Surgery has been consulted. No upper or lower GI endoscopy planned on this admission as there is no sign of acute bleeding. Outpatient upper and lower GI endoscopy recommended. Follow up with outpatient GI, referall for Dr. Lu. H&H stable on discharge. Rx for Ferrous sulfate 325mg Mon/Wed/Fri Cachexia / Malnutrition BMI 18.3 Likely secondary to COPD. Denies any history of malignancy. CT chest earlier this year did not identify any masses under showed end-stage obstructive disease. Encourage p.o. intake. Physical Exam Vital Signs: Temp Pulse Resp BP Pulse Ox 97.3 F 98 18 117/59 L 94 07/04/20 14:06 07/04/20 14:06 07/04/20 14:06 07/04/20 14:06 07/04/20 14:06 Intake & Output 07/03/20 07/04/20 07/05/20 06:59 06:59 06:59 Intake Total 1423 870 920 Output Total 400 600 Balance 1023 270 920 Weight 49.7 kg 49.9 kg General appearance: PRESENT: no acute distress, cooperative, thin - Cachectic Head exam: PRESENT: atraumatic, normocephalic Eye exam: PRESENT: EOMI. ABSENT: scleral icterus Mouth exam: PRESENT: moist, tongue midline Teeth exam: PRESENT: poor dentation Neck exam: PRESENT: full ROM. ABSENT: carotid bruit, JVD, lymphadenopathy, tenderness Respiratory exam: PRESENT: accessory muscle use, decreased breath sounds - Decreased air entry bilaterally, symmetrical, tachypnea, other - Barrel chest. ABSENT: rales, rhonchi, wheezes Cardiovascular exam: PRESENT: RRR. ABSENT: diastolic murmur, systolic murmur Pulses: PRESENT: normal radial pulses GI/Abdominal exam: PRESENT: normal bowel sounds, soft. ABSENT: tenderness Extremities exam: PRESENT: full ROM. ABSENT: pedal edema Musculoskeletal exam: PRESENT: ambulatory, full ROM. ABSENT: deformity, dislocation Neurological exam: PRESENT: alert, awake, oriented to person, oriented to place, oriented to time, oriented to situation, CN II-XII grossly intact. ABSENT: motor sensory deficit Psychiatric exam: PRESENT: appropriate affect, normal mood Skin exam: PRESENT: dry, intact, warm Results Laboratory Results: WBC 10.1 10^3/uL (4.0-10.5) 07/04/20 06:15 RBC 3.86 10^6/uL (4.35-5.55) L 07/04/20 06:15 Hgb 8.2 g/dL (13.5-17.0) L 07/04/20 06:15 Hct 28.1 % (37.9-51.0) L 07/04/20 06:15 MCV 73 fl (80-97) L 07/04/20 06:15 MCH 21.2 pg (27.0-33.4) L 07/04/20 06:15 MCHC 29.2 g/dL (32.0-36.0) L 07/04/20 06:15 RDW 37.7 % (11.5-14.0) H 07/04/20 06:15 Plt Count 215 10^3/uL (150-450) 07/04/20 06:15 Lymph % (Auto) Not Reportable 07/04/20 06:15 [place] % (Auto) Not Reportable 07/04/20 06:15 Eos % (Auto) Not Reportable 07/04/20 06:15 Baso % (Auto) Not Reportable 07/04/20 06:15 Reticulocyte # 0.075 10^6/uL (0.028-0.122) 06/26/20 17:25 Absolute Neuts (auto) Not Reportable 07/04/20 06:15 Absolute Lymphs (auto) Not Reportable 07/04/20 06:15 Absolute Monos (auto) Not Reportable 07/04/20 06:15 Absolute Eos (auto) Not Reportable 07/04/20 06:15 Absolute Basos (auto) Not Reportable 07/04/20 06:15 Total Counted 100 06/27/20 05:02 Seg Neutrophils % Not Reportable 07/04/20 06:15 Seg Neuts % (Manual) 91 % (42-78) H 06/27/20 05:02 Lymphocytes % (Manual) 7 % (13-45) L 06/27/20 05:02 Monocytes % (Manual) 2 % (3-13) L 06/27/20 05:02 Eosinophils % (Manual) 0 % (0-6) 06/27/20 05:02 Basophils % (Manual) 0 % (0-2) 06/27/20 05:02 Abs Neuts (Manual) 5.0 10^3/uL (1.7-8.2) 06/27/20 05:02 Abs Lymphs (Manual) 0.4 10^3/uL (0.5-4.7) L 06/27/20 05:02 Abs Monocytes (Manual) 0.1 10^3/uL (0.1-1.4) 06/27/20 05:02 Absolute Eos (Manual) 0.0 10^3/uL (0.0-0.6) 06/27/20 05:02 Abs Basophils (Manual) 0.0 10^3/uL (0.0-0.2) 06/27/20 05:02 Toxic Granulation SLIGHT 06/27/20 05:02 Platelet Estimate Cancelled 06/26/20 16:23 Platelet Comment ADEQUATE 07/04/20 06:15 Polychromasia 2+ 06/27/20 05:02 Hypochromasia 1+ 07/04/20 06:15 Poikilocytosis 1+ 07/04/20 06:15 Basophilic Stippling PRESENT 06/30/20 07:01 Anisocytosis 4+ 07/04/20 06:15 Microcytosis 2+ 07/04/20 06:15 Target Cells 1+ 06/27/20 05:02 Tear Drop Cells SLIGHT 07/03/20 06:45 Ovalocytes 1+ 07/04/20 06:15 Salvatore Cells SLIGHT 06/27/20 05:02 Schistocytes 3+ 06/27/20 05:02 Retic Count (auto) 2.60 % (0.66-2.85) 06/26/20 17:25 PT 13.5 SEC (11.4-15.4) 06/27/20 05:02 INR 1.01 06/27/20 05:02 APTT 31.8 SEC (23.5-35.8) 06/27/20 05:02 VBG pH 7.34 (7.30-7.42) 07/03/20 06:45 VBG pCO2 83.6 mmHg (35-63) H* 07/03/20 06:45 VBG HCO3 44.0 mmol/L (20-32) H 07/03/20 06:45 VBG Base Excess 15.7 mmol/L 07/03/20 06:45 Sodium 137.8 mmol/L (137-145) 07/04/20 06:15 Potassium 4.7 mmol/L (3.6-5.0) 07/04/20 06:15 Chloride 95 mmol/L (98-107) L 07/04/20 06:15 Carbon Dioxide 42 mmol/L (22-30) H* 07/04/20 06:15 Anion Gap 1 (5-19) L 07/04/20 06:15 BUN 38 mg/dL (7-20) H 07/04/20 06:15 Creatinine 0.67 mg/dL (0.52-1.25) 07/04/20 06:15 Est GFR ( Amer) > 60 (>60) 07/04/20 06:15 Est GFR (MDRD) Non-Af > 60 (>60) 07/04/20 06:15 Glucose 90 mg/dL (75-110) 07/04/20 06:15 Calcium 8.6 mg/dL (8.4-10.2) 07/04/20 06:15 Phosphorus 4.8 mg/dL (2.5-4.5) H 06/27/20 05:02 Magnesium 2.4 mg/dL (1.6-2.3) H 06/29/20 06:27 Iron 10.5 ug/dL (49-181) L 06/26/20 16:23 TIBC 402 ug/dL (250-450) 06/26/20 16:23 % Saturation 3 % 06/26/20 16:23 Ferritin 4.73 ng/mL (17.9-464.0) L 06/26/20 16:23 Total Bilirubin 0.6 mg/dL (0.2-1.3) 06/29/20 06:27 Direct Bilirubin 0.0 mg/dL (0.0-0.4) 06/29/20 06:27 Neonat Total Bilirubin Not Reportable 06/29/20 06:27 Neonat Direct Bilirubin Not Reportable 06/29/20 06:27 Neonat Indirect Bili Not Reportable 06/29/20 06:27 AST 32 U/L (17-59) 06/29/20 06:27 ALT 11 U/L (<50) 06/29/20 06:27 Alkaline Phosphatase 58 U/L (38-126) 06/29/20 06:27 Troponin I 0.079 ng/mL 06/27/20 12:35 NT-Pro-B Natriuret Pep 2990 pg/mL (<450) H 07/01/20 05:56 Total Protein 5.5 g/dL (6.3-8.2) L 06/29/20 06:27 Albumin 2.9 g/dL (3.5-5.0) L 06/29/20 06:27 Vitamin B12 740.0 pg/mL (239-931) 06/26/20 16:23 Folate > 20.00 ng/mL (>2.76) 06/26/20 16:23 TSH 0.46 uIU/mL (0.47-4.68) L 06/27/20 05:02 Urine Color YELLOW 06/26/20 17:25 Urine Appearance SLIGHTLY-CLOUDY 06/26/20 17:25 Urine pH 6.0 (5.0-9.0) 06/26/20 17:25 Ur Specific [place] 1.014 06/26/20 17:25 Urine Protein 30 mg/dL (NEGATIVE) H 06/26/20 17:25 Urine Glucose (UA) NEGATIVE mg/dL (NEGATIVE) 06/26/20 17:25 Urine Ketones NEGATIVE mg/dL (NEGATIVE) 06/26/20 17:25 Urine Blood NEGATIVE (NEGATIVE) 06/26/20 17:25 Urine Nitrite NEGATIVE (NEGATIVE) 06/26/20 17:25 Urine Bilirubin NEGATIVE (NEGATIVE) 06/26/20 17:25 Urine Urobilinogen NEGATIVE mg/dL (<2.0) 06/26/20 17:25 Ur Leukocyte Esterase LARGE (NEGATIVE) H 06/26/20 17:25 Urine WBC (Auto) 83 /HPF 06/26/20 17:25 Urine RBC (Auto) 6 /HPF 06/26/20 17:25 Urine Bacteria (Auto) TRACE /HPF 06/26/20 17:25 Squamous Epi Cells Auto 2 /HPF 06/26/20 17:25 U Non-Squamous Epis Auto 2 /HPF 06/26/20 17:25 Urine Mucus (Auto) FEW /LPF 06/26/20 17:25 Urine Ascorbic Acid NEGATIVE (NEGATIVE) 06/26/20 17:25 Stool Occult Blood NEGATIVE (NEGATIVE) 06/28/20 17:48 COVID-19 Source Cancelled 06/26/20 17:25 COVID-19 (SHE) Cancelled 06/26/20 17:25 Influenza A (Rapid) NEGATIVE (NEGATIVE) 06/26/20 17:39 Influenza A (RT-PCR) NEGATIVE (NEGATIVE) 06/26/20 17:25 Influenza B (Rapid) NEGATIVE (NEGATIVE) 06/26/20 17:39 Influenza B (RT-PCR) NEGATIVE (NEGATIVE) 06/26/20 17:25 RSV (RT-PCR) NEGATIVE (NEGATIVE) 06/26/20 17:25 SARS-CoV-2 Rap RNA(RT-PCR) NEGATIVE (NEGATIVE) 06/26/20 17:25 Slides for Path Review PATHOLOGIST REVIEWED 06/26/20 17:25 Blood Type O POSITIVE 06/26/20 18:01 Blood Type Confirm O POSITIVE 06/26/20 18:07 Antibody Screen NEGATIVE 06/26/20 18:01 Crossmatch See Detail 06/26/20 18:01 06/26/20 06/26/20 06/27/20 16:23 20:10 05:02 Troponin I 0.067 0.109 NT-Pro-B Natriuret Pep 9080 H 06/27/20 07/01/20 12:35 05:56 Troponin I 0.079 NT-Pro-B Natriuret Pep 2990 H Impressions: Chest X-Ray 06/26/20 16:12 IMPRESSION: Constellation of findings suggest CHF exacerbation. Superimposed infection is not excluded. Plan Plan of Treatment: 1. You were treated for acute on chronic COPD exacerbation. This was treated with antibiotics and steroids. - Please follow-up with your welfare investigator within 1 week of discharge. I do think you would benefit from home BiPAP and potentially pulmonology rehab. - Continue with 3 L nasal cannula home oxygen. - Continue with ProAir, Spiriva, DuoNeb and Advair. 2. You presented with shortness of breath on exertion and swelling in your legs, this is secondary to acute congestive heart failure. - You were seen by cardiology who recommends further heart testing in the outpatient setting. - Please follow-up with Dr. Miller, cardiology, within 1 week of discharge from the hospital. - We have started you on 2.5 mg lisinopril daily. This is a medication that will help your heart. - Additionally we started you on 20 mg furosemide by mouth daily. This is a fluid pill and will help keep you from swelling and getting even more short of breath. - Limit fluid intake to less than 1500 - Limit sodium intake to less than 1500ccs. - Weigh yourself daily, a 2-3 pound weight increase in one day means you are retaining fluid and need to increase your fluid pill. 3. On initial presentation with hemoglobin was found to be low this was treated with blood products and iron infusions. Since, your hemoglobin has been stable. You were without signs of active bleeding over the entire time in the hospital. - I have started you on iron supplementation (ferrous sulfate). Please take 325 mg ferrous sulfate every Friday and Friday - Please follow-up with a gastrointestinal or stomach doctor. I have referred you to Dr. Lu. -I believe you would benefit from further outpatient testing including upper and lower GI endoscopy. You are scheduled for a follow-up appointment with your primary care from physician Dr. Tuttle on 07/13/2020. Time Spent: Greater than 30 Minutes Stroke Is this a Stroke Patient?: No Acute Heart Failure Is this a Heart Failure Patient?: Yes Documentation of LVEF assessment?: Yes LVEF: LVEF Greater Than 40% Anticoagulant Therapy: No, document contraindications Reason(s) not Discharged on Anticoagulant Therapy: Risk for bleeding Discharged on Evidence-Based Beta Blockers: No, document contraindications Reason(s) not discharged on Evidence-Based Beta Blockers: Hypotension, Severe COPD/Asthma Discharged on ARNI?: No-Document Contraindications Reason(s) not discharged on ARNI: ACEI use within the prior 36 hours Discharged on ARB?: No-document contraindications - ACEI Reason(s) not Discharged on ARB: Other - ACEI ARB Reason - Other: ACEI Discharged on ACEI?: Yes For LVEF <35%, discharged on Aldosterone Antagonist?: N/A (LVEF > or = 35%) Follow-up Appointment scheduled within 7 days?: Yes
== END 2020-07-04 14:40 | disposition home health service (06) | DRG 291 ==
LOC: ER 16:01 → EH 20:01 → 3S 06-27 03:50
PROVIDERS: ADMIT Internal Medicine; ATTEND Physician Assistant
PROC: 30233N1 Transfusion of Nonautologous Red Blood Cells into Peripheral Vein, Percutaneous Approach (ICD-10-PCS; principal; 2020-06-26)
PROC: 30233N1 Transfusion of Nonautologous Red Blood Cells into Peripheral Vein, Percutaneous Approach (ICD-10-PCS; 2020-06-27)
PROC: 5A09357 Assistance with Respiratory Ventilation, Less than 24 Consecutive Hours, Continuous Positive Airway Pressure (ICD-10-PCS; 2020-07-03)
DX: I50.23 Acute on chronic systolic (congestive) heart failure (principal); J96.22 Acute and chronic respiratory failure with hypercapnia; J96.21 Acute and chronic respiratory failure with hypoxia; E46 Unspecified protein-calorie malnutrition; E44.0 Moderate protein-calorie malnutrition; R64 Cachexia; J44.1 Chronic obstructive pulmonary disease with (acute) exacerbation; Z68.1 Body mass index [BMI] 19.9 or less, adult; D50.0 Iron deficiency anemia secondary to blood loss (chronic); Z99.81 Dependence on supplemental oxygen; R49.0 Dysphonia; I35.0 Nonrheumatic aortic (valve) stenosis; Z79.52 Long term (current) use of systemic steroids; Z79.899 Other long term (current) drug therapy; Z87.891 Personal history of nicotine dependence; Z11.59 Encounter for screening for other viral diseases
CPT/HCPCS: 36415; 36430; 71045; 80048; 80053; 81001; 82272; 82607; 82728; 82746; 82803; 83540; 83550; 83735; 83880; 84100; 84443; 84484; 85025; 85027; 85045; 85610; 85730; 86850; 86900; 86901; 86920; 87070; 87086; 87205; 87804; 93005; 93010; 93306; 94640; 94660; 94667; 94668; 94799; 96365; 96375; 99285; 0241U; C9803; J0696; J1439; J1940; J2930; J3475; J3490; J7050; J7512; P9016

== ENCOUNTER 2020-07-15 18:10 | Inpatient (IN) | payer MEDICARE ==
[2020-07-15 20:01] LABS: ALBUMIN 2.8 g/dL (3.5-5.0); ALKALINE PHOSPHATASE 48 U/L (38-126); ASPARTATE AMINO TRANSFERASE 41 U/L (17-59); BILIRUBIN,DIRECT 0.1 mg/dL (0.0-0.4); BILIRUBIN,TOTAL 0.3 mg/dL (0.2-1.3); BLOOD UREA NITROGEN 62 mg/dL (7-20); CALCIUM 9.1 mg/dL (8.4-10.2); CHLORIDE 94 mmol/L (98-107); GLUCOSE 138 mg/dL (75-110); POTASSIUM 5.1 mmol/L (3.6-5.0); TOTAL PROTEIN 5.1 g/dL (6.3-8.2)
[2020-07-15 20:18] LABS: ANION GAP 3 (5-19)
[2020-07-15 20:20] LABS: CARBON DIOXIDE 41 mmol/L (22-30)
--- NOTE | 2020-07-15 20:27 | RADIOLOGY REPORT (SQ) ---
EXAM DESCRIPTION: XR CHEST 1 VIEW COMPLETED DATE/TME: 07/15/2020 20:00 CLINICAL HISTORY: 79 years, Male, Cough, shortness of breath COMPARISON: 06/26/2020 FINDINGS: Single view of the chest is submitted. Pulmonary edema has improved. Cardiac silhouette is stable. The lungs are again hyperinflated and there is bilateral interstitial disease with scattered atelectasis and scar. No definite new consolidation. IMPRESSION: Decreased pulmonary edema with no other definite significant change.
[2020-07-15 20:32] LABS: HEMATOCRIT 16.9 % (37.9-51.0); MEAN CORPUSCULAR HEMOGLOBIN 24.8 pg (27.0-33.4); MEAN CORPUSCULAR HGB CONC 31.5 g/dL (32.0-36.0); PLATELET COUNT 210 10^3/uL (150-450); RED BLOOD COUNT 2.15 10^6/uL (4.35-5.55); RED CELL DISTRIBUTION WIDTH 39.1 % (11.5-14.0); WHITE BLOOD COUNT 8.5 10^3/uL (4.0-10.5)
[2020-07-15 20:41] LABS: APPEARANCE,URINE SLIGHTLY-CLOUDY; BILIRUBIN,URINE NEGATIVE (NEGATIVE); COLOR,URINE YELLOW; GLUCOSE, URINE NEGATIVE (NEGATIVE); KETONES,URINE NEGATIVE (NEGATIVE); LEUKOCYTE ESTERASE,URINE MODERATE (NEGATIVE); NITRITE,URINE NEGATIVE (NEGATIVE); PROTEIN,URINE NEGATIVE (NEGATIVE); URINE SPECIFIC GRAVITY 1.012; UROBILINOGEN,URINE NEGATIVE mg/dL (<2.0)
[2020-07-15 20:42] LABS: HEMOGLOBIN 5.3 g/dL (13.5-17.0)
[2020-07-15 20:43] LABS: MEAN CORPUSCULAR VOLUME 79 fl (80-97)
[2020-07-15 20:49] LABS: ABSOLUTE LYMPHOCYTES# (MANUAL) 0.3 10^3/uL (0.5-4.7); BASOPHILS % (MANUAL) 0 % (0-2); EOSINOPHILS % (MANUAL) 0 % (0-6); LYMPHOCYTES % (MANUAL) 3 % (13-45); MONOCYTES % (MANUAL) 0 % (3-13); SEGMENTED NEUTROPHILS % (MAN) 97 % (42-78); TOTAL CELLS COUNTED 100
[2020-07-15 20:50] LABS: ANISOCYTOSIS 4+; HYPOCHROMASIA SLIGHT; PLATELET COMMENT ADEQUATE
[2020-07-15 20:51] LABS: OVALOCYTES 1+; TARGET CELLS 1+
[2020-07-15 20:53] LABS: POLYCHROMASIA SLIGHT
[2020-07-15 20:54] LABS: POIKILOCYTOSIS 2+; TEAR DROP CELLS SLIGHT
[2020-07-15] MEDS ORDERED: NORMAL SALINE 250 ML IV PRN ×2 (21:07)
--- NOTE | 2020-07-15 21:19 | ER Document Report ---
ED GI Bleed / Rectal Pain - General Chief Complaint: Rectal Bleeding Stated Complaint: RECTAL BLEEDING/SHORTNESS OF BREATH Time Seen by Provider: 07/15/20 18:37 TRAVEL OUTSIDE OF THE [place] IN LAST 30 DAYS: No - HPI Notes: Patient is a 79-year-old male with a past medical history of COPD on 3 L oxygen chronically who presents with weakness and near syncope. He is here with his brother. Patient was recently admitted to the hospital on 06/26 for anemia requiring blood transfusions. He was diagnosed with CHF and started on Lasix from record review. His brother states that he has been weak with ambulation and almost passes out when he tries to stand up. Patient states he noticed dark stool yesterday. He denies any bright red blood per rectum. No abdominal pain. No fevers. No chest pain. Patient has a chronic raspy voice which is not new. He states his breathing is baseline. - Related Data Allergies/Adverse Reactions: No Known Allergies Allergy (Unverified 06/26/20 22:11) Past Medical History - General Information source: Patient, Relative - Social History Smoking Status: Former Smoker Family History: None Pulmonary Medical History: Reports: Hx COPD Psychiatric Medical History: Denies: Hx Depression Past Surgical History: Denies: Hx Cardiac Catheterization, Hx Coronary Artery Bypass Graft Review of Systems - Review of Systems Notes: CONSTITUTIONAL: No fever or weight loss. Positive for fatigue. SKIN: No rash. HENT: No congestion, ear pain, or sore throat. CARDIOVASCULAR: No chest pain or edema. RESPIRATORY: Positive for chronic cough. Positive for shortness of breath which is not new. GASTROINTESTINAL: No abdominal pain, nausea, vomiting. Positive for dark stools. MUSCULOSKELETAL: No joint pain or swelling. NEUROLOGIC: No seizures. No headache, focal weakness or sensory changes. PSYCHIATRIC: No depression or anxiety. Physical Exam - Vital signs Vitals: Resp Pulse Ox 25 H 100 07/15/20 18:35 07/15/20 18:35 - General In distress: None Notes: VITAL SIGNS: Within normal limits. GENERAL: No acute distress, non-toxic appearance. HEAD: Normal with no signs of head trauma. EYES: Conjunctiva normal, no discharge. EARS: Hearing grossly intact. NOSE: Normal. NECK: Normal range of motion, no tenderness, supple, no lymphadenopathy, No adenopathy, no JVD. CHEST: Diminished lung sounds bilaterally. No wheezing. CARDIAC: Regular rate and rhythm. S1 and S2, without murmurs, gallops, or rubs. VASCULAR: No Edema. ABDOMEN: Normal and soft with no tenderness, no masses or pulsatile masses. Hemoccult exam performed with nurse senior environmental technician. Patient had a positive Hemoccul t. There was dark brown stool. No bright red bleeding. MUSCULOSKELETAL: Good range of motion of all major joints. Extremities without clubbing, cyanosis or edema. NEUROLOGICAL: Alert and oriented x 3. No focal sensory or strength deficits. Speech normal. Follows commands appropriately. PSYCHIATRIC: Normal Affect, judgement and mood. SKIN: Normal appearance with no rashes or lesions. Course - Re-evaluation Re-evalutation: 07/15/20 21:18 Patient has a low hemoglobin. He has a positive Hemoccult. Patient did receive 2 units of blood last time at his admission. Has not yet followed up with GI because his family doctor wanted him to become stronger before he does that and has a colonoscopy. His last colonoscopy was many years ago. Patient was consented for blood. Likely he will need to be admitted. I discussed with Dr. Feliciano from surgery who agreed to be consulted on the patient while he is hospitalized. 07/15/20 22:57 07/16/20 01:42 Patient had some mild decrease in his O2 saturations to 89%. I reevaluated him and he appears to be doing much better. He is speaking normally and does not appear to be in respiratory distress. I turned up his oxygen slightly to 3-1/2 L. - Vital Signs Vital signs: Temp Pulse Resp BP Pulse Ox 97.6 F 76 26 H 111/54 L 92 07/15/20 23:00 07/15/20 23:00 07/16/20 00:59 07/16/20 00:59 07/16/20 00:59 - Laboratory Results Result Diagrams: 07/15/20 20:19 07/15/20 19:30 Laboratory Results Interpreted: 07/15/20 07/15/20 07/15/20 19:30 19:30 20:10 RBC Hgb Hct MCV MCH MCHC RDW Seg Neuts % (Manual) Lymphocytes % (Manual) Monocytes % (Manual) Abs Lymphs (Manual) Abs Monocytes (Manual) Potassium 5.1 H Chloride 94 L Carbon Dioxide 41 H* Anion Gap 3 L BUN 62 H Glucose 138 H NT-Pro-B Natriuret Pep 871 H Total Protein 5.1 L Albumin 2.8 L Ur Leukocyte Esterase MODERATE H Crossmatch 07/15/20 07/15/20 20:19 20:43 RBC 2.15 L Hgb 5.3 L Hct 16.9 L MCV 79 L D MCH 24.8 L MCHC 31.5 L RDW 39.1 H Seg Neuts % (Manual) 97 H Lymphocytes % (Manual) 3 L Monocytes % (Manual) 0 L Abs Lymphs (Manual) 0.3 L Abs Monocytes (Manual) 0.0 L Potassium Chloride Carbon Dioxide Anion Gap BUN Glucose NT-Pro-B Natriuret Pep Total Protein Albumin Ur Leukocyte Esterase Crossmatch See Detail Critical Laboratory Results Reviewed: Yes Attending or Supervising Physician who Reviewed Labs: APRIL MANN - Radiology Results Critical Radiology Results Reviewed: No Critical Results Discharge - Discharge Clinical Impression: Symptomatic anemia GI bleed Qualifiers: GI bleed type/associated pathology: unspecified gastrointestinal hemorrhage type Qualified Code(s): K92.2 - Gastrointestinal hemorrhage, unspecified Condition: Stable Disposition: ADMITTED INPATIENT Unit Admitted: Telemetry
[2020-07-15] MEDS ORDERED: PANTOPRAZOLE SODIUM 40 MG VIAL IV ONE (22:40)
[2020-07-15] MEDS ORDERED: ALBUTEROL SULFATE 0.083% NEB 2.5 MG/3 ML AMPUL NEB PRN (23:50)
[2020-07-15] MEDS ORDERED: ACETAMINOPHEN 650 MG SUPP.RECT PR PRN (23:50)
--- NOTE | 2020-07-16 02:51 | PDOC H&P ---
History of Present Illness Admission Date/PCP: 07/15/20 23:51 SANIYA TUTTLE MD Patient complains of: Weakness and dark stool History of Present Illness: JAVIER MARTINEZ is a 79 year old male The patient is severely deconditioned, cachectic, suffering from chronic hypoxic respiratory failure severe advanced emphysema and congestive heart failure. He was admitted to the hospital on June 26 and discharged on July 04. He was treated for symptomatic anemia with 2 units of packed red blood cell transfusion and intravenous iron. He was referred to gastroenterology for outpatient endoscopic evaluation. The patient did not follow-up. During the hospitalization the patient did not have any sign of ongoing bleeding, his stool was heme-negative. He is very weak and chronically deconditioned. He has significant chronic shortness of breath. For the last 24 hours he became more weak, he had several dark stools. He had more shortness of breath usually. He almost passed out because he was so lightheaded. In the emergency department he was hemodynamically stable. He was found to have a hemoglobin of 5.3. He was started on blood transfusions. When I saw him he was obviously having shortness of breath but he told me that this is normal for him. He said he is feeling as usual. Past Medical History Cardiac Medical History: Reports: Congestive Heart Failure - Ejection fraction 40 to 45% a few weeks ago Pulmonary Medical History: Reports: Chronic Obstructive Pulmonary Disease (COPD), Other - Chronic respiratory failure on 3 L/min nasal oxygen chronically Endocrine Medical History: Reports: None Renal/ Medical History: Reports: None Malignancy Medical History: Reports: None GI Medical History: Reports: None Skin Medical History: Reports: None Psychiatric Medical History: Denies: Depression Hematology: Reports: Anemia Past Surgical History Past Surgical History: Denies: Cardiac Catheterization, Coronary Artery Bypass Graft Social History Lives with: Family Smoking Status: Former Smoker Electronic Cigarette use?: No Last Time Smoked: 2004 Frequency of Alcohol Use: None Hx Recreational Drug Use: No Drugs: None Hx Prescription Drug Abuse: No Family History Family History: None Parental Family History Reviewed: Yes Children Family History Reviewed: Yes Sibling(s) Family History Reviewed.: Yes Medication/Allergy Home Medications: Albuterol Sulfate [Proair HFA Inhalation Aerosol 8.5 gm MDI] 2 puff IH Q4HP PRN 06/27/20 Fluticasone/Salmeterol [Advair 250-50 Diskus 14 Dose/Diskus] 1 puff IH Q12 06/27/20 Ipratropium/Albuterol Sulfate [Duoneb 3 ml Ampul] 1 vial NEB RTQ6 06/27/20 Prednisone [Deltasone 5 mg Tablet] 5 mg PO DAILY 06/27/20 Simvastatin [Zocor 40 mg Tablet] 40 mg PO QPM 06/27/20 Tiotropium [place] [Spiriva Handihaler 5 Cap/Kit (18 Mcg/Cap)] 1 cap IH DAILY 06/27/20 Ferrous Sulfate [Feosol 325 mg Tablet] 325 mg PO ASDIR PRN #30 tablet 07/04/20 Furosemide [Lasix 20 mg Tablet] 20 mg PO DAILY #30 tablet 07/04/20 Lisinopril [Prinivil 5 mg Tablet] 2.5 mg PO DAILY #30 tablet 07/04/20 Allergies/Adverse Reactions: No Known Allergies Allergy (Unverified 06/26/20 22:11) Review of Systems Constitutional: PRESENT: anorexia, other - Cachectic, chronically deconditioned uses wheelchair. Eyes: ABSENT: visual disturbances Ears: ABSENT: hearing changes Cardiovascular: PRESENT: dyspnea on exertion. ABSENT: chest pain, edema, orthropnea, palpitations Respiratory: PRESENT: dyspnea. ABSENT: cough, hemoptysis, sputum Gastrointestinal: PRESENT: other - Dark bowel movements. ABSENT: abdominal pain, coffee ground emesis, diarrhea, dysphagia Integumentary: ABSENT: rash, wounds Neurological: ABSENT: abnormal gait, abnormal speech, confusion, dizziness, focal weakness, syncope Hematologic/Lymphatic: ABSENT: easy bleeding, easy bruising Physical Exam Vital Signs: Temp Pulse Resp BP Pulse Ox 97.4 F 65 17 104/46 L 94 07/16/20 01:41 07/16/20 01:41 07/16/20 01:41 07/16/20 01:41 07/16/20 01:41 Intake & Output 07/14/20 07/15/20 07/16/20 06:59 06:59 06:59 Intake Total 300 Balance 300 Weight 43 kg General appearance: PRESENT: thin - Cachectic chronically deconditioned male, other - In mild to moderate respiratory distress which is chronic. Head exam: PRESENT: atraumatic Eye exam: PRESENT: conjunctiva pink, EOMI, PERRLA. ABSENT: scleral icterus Ear exam: PRESENT: normal external ear exam Neck exam: ABSENT: carotid bruit, JVD, lymphadenopathy, thyromegaly Respiratory exam: PRESENT: accessory muscle use, prolonged expiratory phas, rhonchi. ABSENT: chest wall tenderness Cardiovascular exam: PRESENT: RRR. ABSENT: diastolic murmur, rubs, systolic murmur Pulses: PRESENT: normal dorsalis pedis pul GI/Abdominal exam: PRESENT: normal bowel sounds, soft. ABSENT: distended, guarding, mass, organolmegaly, rebound, tenderness Rectal exam: PRESENT: other - Rectal examination was done by the emergency department provider. Dark strongly heme positive stool. Extremities exam: PRESENT: other - Significant muscle wasting Musculoskeletal exam: PRESENT: full ROM Neurological exam: PRESENT: alert, awake, oriented to person, oriented to place, oriented to time, oriented to situation, CN II-XII grossly intact. ABSENT: motor sensory deficit Psychiatric exam: PRESENT: anxious Results Laboratory Results: 07/15/20 20:19 07/15/20 19:30 07/15/20 07/15/20 07/15/20 19:30 19:30 20:10 WBC Cancelled RBC Cancelled Hgb Cancelled Hct Cancelled MCV Cancelled MCH Cancelled MCHC Cancelled RDW Cancelled Plt Count Cancelled Seg Neutrophils % Cancelled Sodium 138.4 Potassium 5.1 H Chloride 94 L Carbon Dioxide 41 H* Anion Gap 3 L BUN 62 H Creatinine 1.03 Est GFR ( Amer) > 60 Glucose 138 H Calcium 9.1 Total Bilirubin 0.3 AST 41 Alkaline Phosphatase 48 Total Protein 5.1 L Albumin 2.8 L Urine Color YELLOW Urine Appearance SLIGHTLY-CLOUDY Urine pH 5.0 Ur Specific [place] 1.012 Urine Protein NEGATIVE Urine Glucose (UA) NEGATIVE Urine Ketones NEGATIVE Urine Blood NEGATIVE Urine Nitrite NEGATIVE Ur Leukocyte Esterase MODERATE H Urine WBC (Auto) 3 Urine RBC (Auto) 1 Blood Type Antibody Screen 07/15/20 07/15/20 20:19 20:43 WBC 8.5 RBC 2.15 L Hgb 5.3 L Hct 16.9 L MCV 79 L D MCH 24.8 L MCHC 31.5 L RDW 39.1 H Plt Count 210 Seg Neutrophils % Not Reportable Sodium Potassium Chloride Carbon Dioxide Anion Gap BUN Creatinine Est GFR ( Amer) Glucose Calcium Total Bilirubin AST Alkaline Phosphatase Total Protein Albumin Urine Color Urine Appearance Urine pH Ur Specific [place] Urine Protein Urine Glucose (UA) Urine Ketones Urine Blood Urine Nitrite Ur Leukocyte Esterase Urine WBC (Auto) Urine RBC (Auto) Blood Type O POSITIVE Antibody Screen NEGATIVE 07/15/20 07/15/20 19:30 19:30 Troponin I 0.018 NT-Pro-B Natriuret Pep 871 H EKG Comments: Sinus rhythm. Left ventricular hypertrophy. Impressions: Chest X-Ray 07/15/20 18:56 IMPRESSION: Decreased pulmonary edema with no other definite significant change. Assessment and Plan - Diagnosis (1) Symptomatic anemia Is this a current diagnosis for this admission?: Yes Plan: He is going to receive 2 units of packed red blood cell transfusion. If necessary additional transfusion. (2) GI bleed Qualifiers: GI bleed type/associated pathology: unspecified gastrointestinal hemorrhage type Qualified Code(s): K92.2 - Gastrointestinal hemorrhage, unspecified Is this a current diagnosis for this admission?: Yes Plan: He has heme positive stool. 10 days ago he was discharged home with hemoglobin of 8.2. Today hemoglobin is 5.3. His stool was heme positive. He has no sign of active bleeding. He was placed on proton pump inhibitor. Clear liquid diet in preparation for endoscopic evaluation. Most likely upper and lower endoscopy will be needed. DVT prophylaxis with compression device. (3) Chronic respiratory failure with hypoxia and hypercapnia Is this a current diagnosis for this admission?: Yes Plan: Continue oxygen therapy. (4) COPD (chronic obstructive pulmonary disease) Qualifiers: COPD type: unspecified COPD Qualified Code(s): J44.9 - Chronic obstructive pulmonary disease, unspecified Is this a current diagnosis for this admission?: Yes Plan: Advanced, end-stage COPD. Continue bronchodilators. No sign of exacerbation. (5) Systolic CHF, chronic Is this a current diagnosis for this admission?: Yes Plan: He is not in heart failure. Avoid excessive intravenous fluid administration. Monitor volume status. (6) Cachexia Is this a current diagnosis for this admission?: Yes Plan: He is cachectic with severe generalized deconditioning. - Plan Summary Summary: The patient was admitted with recurrent severe anemia. During previous admission he did not have any blood in his stool but now his stool is heme positive. He obviously losing blood from the gastrointestinal tract. It is unclear whether this is an upper or lower bleed. He is not bleeding actively. Most likely will need upper and lower endoscopy. He has severe chronic shortness of breath, his respiratory status at baseline. - Time Time Spent with patient: 35 or more minutes Medications reviewed and adjusted accordingly: Yes Anticipated Discharge Disposition: Home, Self Care Anticipated Discharge Timeframe: within 72 hours - Inpatient Certification Based on my medical assessment, after consideration of the patient's comorbidities, presenting symptoms, or acuity I expect that the services needed warrant INPATIENT care.: Yes I certify that my determination is in accordance with my understanding of Medicare's requirements for reasonable and necessary INPATIENT services [42 CFR 412.3e].: Yes Medical Necessity: Failure to Improve With Outpatient Therapy, Risk of Complication if Not Cared For in Hospital
[2020-07-16] MEDS: IPRATROPIUM/ALBUTEROL 0.5-2.5 MG/3 ML AMPUL NEB SCH ×3 (04:25→14:35)
[2020-07-16 06:16] LABS: BLOOD UREA NITROGEN 56 mg/dL (7-20); CALCIUM 8.5 mg/dL (8.4-10.2); CARBON DIOXIDE 38 mmol/L (22-30); CHLORIDE 98 mmol/L (98-107); GLUCOSE 127 mg/dL (75-110); POTASSIUM 4.7 mmol/L (3.6-5.0)
[2020-07-16 06:19] LABS: ANION GAP 3 (5-19)
[2020-07-16 09:25] LABS: ABSOLUTE LYMPHOCYTES (AUTO) 0.7 10^3/uL (0.5-4.7); ABSOLUTE MONOCYTES (AUTO) 0.3 10^3/uL (0.1-1.4); ABSOLUTE NEUT (AUTO) 4.2 10^3/uL (1.7-8.2); BASOPHILS % (AUTO) 0.1 % (0-2); HEMATOCRIT 29.7 % (37.9-51.0); LYMPHOCYTES % (AUTO) 13.6 % (13-45); MEAN CORPUSCULAR HEMOGLOBIN 26.7 pg (27.0-33.4); MEAN CORPUSCULAR HGB CONC 32.4 g/dL (32.0-36.0); MEAN CORPUSCULAR VOLUME 82 fl (80-97); MONOCYTES % (AUTO) 5.2 % (3-13); PLATELET COUNT 207 10^3/uL (150-450); RED BLOOD COUNT 3.61 10^6/uL (4.35-5.55); RED CELL DISTRIBUTION WIDTH 29.6 % (11.5-14.0); SEGMENTED NEUTROPHILS % (AUTO) 81.1 % (42-78); TOTAL CELLS COUNTED % (AUTO) 100 %; WHITE BLOOD COUNT 5.2 10^3/uL (4.0-10.5)
--- NOTE | 2020-07-16 09:55 | PDOC CONSULTATION ---
Consultation Consult Date: 07/16/20 Provider Consulted: DAYNE MCCLAIN Consult reason:: Upper and lower endoscopy History of Present Illness Admission Date/PCP: 07/15/20 23:51 SANIYA TUTTLE MD History of Present Illness: JAVIER MARTINEZ is a 79 year old male Presents emergency department via ground rescue complaining of weakness, failure to thrive. This is patient's second hospitalization in 2 weeks at [facility] for similar symptoms. Last month he was found to have a hemoglobin of 5, transfused multiple units, and came up to the 8 range. He had no overt signs of GI bleeding, but was intermittently heme positive. Patient is a poor historian apparently has had upper and lower endoscopy at least 20 years ago, findings unknown. Surgery was consulted for upper and lower endoscopy last month, patient was advised to have the studies performed on outpatient basis. He did not follow through. Now admitted for exacerbation of end-stage COPD, and recurrent anemia with a hemoglobin of 5.3. Covid status undetermined. Patient hemodynamically stable currently, taking clear liquids. Past Medical History Past Medical History: End-stage COPD, emphysema; long smoking history. Chronic lower extremity edema. Anorexia Cardiac Medical History: Reports: Congestive Heart Failure - Ejection fraction 40 to 45% a few weeks ago Pulmonary Medical History: Reports: Chronic Obstructive Pulmonary Disease (COPD), Other - Chronic respiratory failure on 3 L/min nasal oxygen chronically Endocrine Medical History: Reports: None Renal/ Medical History: Reports: None Malignancy Medical History: Reports: None GI Medical History: Reports: None Skin Medical History: Reports: None Psychiatric Medical History: Denies: Depression Hematology: Reports: Anemia Past Surgical History Past Surgical History: Inguinal hernia repair, remote Past Surgical History: Denies: Cardiac Catheterization, Coronary Artery Bypass Graft Social History Information Source: Patient Lives with: Family Smoking Status: Former Smoker Electronic Cigarette use?: No Last Time Smoked: 2004 Frequency of Alcohol Use: None Hx Recreational Drug Use: No Drugs: None Hx Prescription Drug Abuse: No Family History Parental Family History Reviewed: No Children Family History Reviewed: No Sibling(s) Family History Reviewed.: No Medication/Allergy Home Medications: Albuterol Sulfate [Proair HFA Inhalation Aerosol 8.5 gm MDI] 2 puff IH Q4HP PRN 06/27/20 Fluticasone/Salmeterol [Advair 250-50 Diskus 14 Dose/Diskus] 1 puff IH Q12 06/27/20 Ipratropium/Albuterol Sulfate [Duoneb 3 ml Ampul] 1 vial NEB RTQ6 06/27/20 Prednisone [Deltasone 5 mg Tablet] 5 mg PO DAILY 06/27/20 Simvastatin [Zocor 40 mg Tablet] 40 mg PO QPM 06/27/20 Tiotropium [place] [Spiriva Handihaler 5 Cap/Kit (18 Mcg/Cap)] 1 cap IH DAILY 06/27/20 Ferrous Sulfate [Feosol 325 mg Tablet] 325 mg PO ASDIR PRN #30 tablet 07/04/20 Furosemide [Lasix 20 mg Tablet] 20 mg PO DAILY #30 tablet 07/04/20 Lisinopril [Prinivil 5 mg Tablet] 2.5 mg PO DAILY #30 tablet 07/04/20 Allergies/Adverse Reactions: No Known Allergies Allergy (Unverified 06/26/20 22:11) Review of Systems ROS unobtainable: Other - Patient poor historian, unable to articulate clearly Eyes: ABSENT: visual disturbances Ears: ABSENT: hearing changes Breasts: PRESENT: as per HPI Gastrointestinal: PRESENT: other - Denies hematemesis hemoptysis or blood per rectum Physical Exam Vital Signs: Temp Pulse Resp BP Pulse Ox 97.5 F 75 18 117/64 88 L 07/16/20 08:34 07/16/20 09:07 07/16/20 09:07 07/16/20 08:34 07/16/20 09:07 Intake & Output 07/15/20 07/16/20 07/17/20 06:59 06:59 06:59 Intake Total 900 Output Total 150 Balance 750 Weight 43 kg General appearance: PRESENT: other - Extreme shortness of breath, chronic coarseness Eye exam: PRESENT: EOMI Mouth exam: PRESENT: dry mucosa Throat exam: PRESENT: other - Not examined Neck exam: PRESENT: other - Cachexia Respiratory exam: PRESENT: other - Extremely labored respirations, with accessory muscles utilized Pulses: PRESENT: normal carotid pulses, normal radial pulses, normal femoral pulses GI/Abdominal exam: PRESENT: other - Soft, nontender no peritoneal signs Rectal exam: PRESENT: deferred Extremities exam: PRESENT: +2 edema, other - +2 edema lower extremities Neurological exam: PRESENT: oriented to person, oriented to place, oriented to time, oriented to situation Psychiatric exam: PRESENT: anxious Results Laboratory Results: 07/16/20 05:00 07/15/20 07/15/20 07/15/20 19:30 19:30 20:10 WBC Cancelled RBC Cancelled Hgb Cancelled Hct Cancelled MCV Cancelled MCH Cancelled MCHC Cancelled RDW Cancelled Plt Count Cancelled Seg Neutrophils % Cancelled Sodium 138.4 Potassium 5.1 H Chloride 94 L Carbon Dioxide 41 H* Anion Gap 3 L BUN 62 H Creatinine 1.03 Est GFR ( Amer) > 60 Glucose 138 H Calcium 9.1 Magnesium Total Bilirubin 0.3 AST 41 Alkaline Phosphatase 48 Total Protein 5.1 L Albumin 2.8 L TSH Urine Color YELLOW Urine Appearance SLIGHTLY-CLOUDY Urine pH 5.0 Ur Specific [place] 1.012 Urine Protein NEGATIVE Urine Glucose (UA) NEGATIVE Urine Ketones NEGATIVE Urine Blood NEGATIVE Urine Nitrite NEGATIVE Ur Leukocyte Esterase MODERATE H Urine WBC (Auto) 3 Urine RBC (Auto) 1 Blood Type Antibody Screen 07/15/20 07/15/20 07/16/20 20:19 20:43 05:00 WBC 8.5 Cancelled RBC 2.15 L Cancelled Hgb 5.3 L Cancelled Hct 16.9 L Cancelled MCV 79 L D Cancelled MCH 24.8 L Cancelled MCHC 31.5 L Cancelled RDW 39.1 H Cancelled Plt Count 210 Cancelled Seg Neutrophils % Not Reportable Cancelled Sodium Potassium Chloride Carbon Dioxide Anion Gap BUN Creatinine Est GFR ( Amer) Glucose Calcium Magnesium Total Bilirubin AST Alkaline Phosphatase Total Protein Albumin TSH Urine Color Urine Appearance Urine pH Ur Specific [place] Urine Protein Urine Glucose (UA) Urine Ketones Urine Blood Urine Nitrite Ur Leukocyte Esterase Urine WBC (Auto) Urine RBC (Auto) Blood Type O POSITIVE Antibody Screen NEGATIVE 07/16/20 07/16/20 05:00 05:00 WBC RBC Hgb Hct MCV MCH MCHC RDW Plt Count Seg Neutrophils % Sodium 139.0 Potassium 4.7 Chloride 98 Carbon Dioxide 38 H Anion Gap 3 L BUN 56 H Creatinine 0.93 Est GFR ( Amer) > 60 Glucose 127 H Calcium 8.5 Magnesium 2.3 Total Bilirubin AST Alkaline Phosphatase Total Protein Albumin TSH 0.38 L Urine Color Urine Appearance Urine pH Ur Specific [place] Urine Protein Urine Glucose (UA) Urine Ketones Urine Blood Urine Nitrite Ur Leukocyte Esterase Urine WBC (Auto) Urine RBC (Auto) Blood Type Antibody Screen 07/15/20 07/15/20 19:30 19:30 Troponin I 0.018 NT-Pro-B Natriuret Pep 871 H Impressions: Chest X-Ray 07/15/20 18:56 IMPRESSION: Decreased pulmonary edema with no other definite significant change. Assessment & Plan - Diagnosis (1) GI bleed Qualifiers: GI bleed type/associated pathology: unspecified gastrointestinal hemorrhage type Qualified Code(s): K92.2 - Gastrointestinal hemorrhage, unspecified Is this a current diagnosis for this admission?: Yes Plan: Impression: Acute superimposed on chronic, etiology undetermined; clinical presentation highly suspicious for malignancy. Leaving blood transfusions for second time in 2 weeks. Remote history of upper and lower endoscopy, findings unknown. Deserves further evaluation Recommendations: 1. obtain a rapid Covid test 2. We will set patient up with bowel prep today, and tentatively set him up for upper and lower endoscopy tomorrow, July 17, Dr. Jensen, LMAC anesthesia. 3. Discussed the above with nursing staff, and hospitalist service. (2) Anemia Qualifiers: Anemia type: iron deficiency Iron deficiency anemia type: chronic blood loss Qualified Code(s): D50.0 - Iron deficiency anemia secondary to blood loss (chronic) Is this a current diagnosis for this admission?: Yes (3) Abuse of smoked substance Is this a current diagnosis for this admission?: Yes (4) CHF (congestive heart failure) Is this a current diagnosis for this admission?: Yes (5) COPD (chronic obstructive pulmonary disease) Qualifiers: COPD type: unspecified COPD Qualified Code(s): J44.9 - Chronic obstructive pulmonary disease, unspecified Is this a current diagnosis for this admission?: Yes (6) Malnutrition Qualifiers: Malnutrition type: protein-calorie malnutrition Protein-calorie malnutri tion severity: moderate Qualified Code(s): E44.0 - Moderate protein-calorie malnutrition
[2020-07-16] MEDS ORDERED: PANTOPRAZOLE SODIUM 40 MG VIAL IV SCH (10:00)
[2020-07-16 10:04] LABS: HEMOGLOBIN 9.6 g/dL (13.5-17.0)
[2020-07-16 10:06] LABS: ANISOCYTOSIS 4+; HYPOCHROMASIA SLIGHT; OVALOCYTES 1+; POLYCHROMASIA SLIGHT
[2020-07-16 10:07] LABS: PLATELET COMMENT ADEQUATE
--- NOTE | 2020-07-16 10:56 | PDOC PROGRESS REPORT ---
Subjective Date:: 07/16/20 Subjective:: The patient is sitting at the edge of the bed. He is tachypneic. He has severe ly diminished muscle mass and is barrel chested. His speech is actually not normal due to the poor expiratory flow. We discussed the loss of taste and smell. It is somewhat difficult as the patient states that his food tastes lousy. I could not get a truly clear picture but because of his overall debility and the fact that he will be getting endoscopy we are obtaining a rapid Covid test. Reason For Visit: GI BLEED, SYMPTOMATIC ANEMIA Physical Exam Vital Signs: Temp Pulse Resp BP Pulse Ox 97.5 F 75 18 117/64 88 L 07/16/20 08:34 07/16/20 09:07 07/16/20 09:07 07/16/20 08:34 07/16/20 09:07 Intake & Output 07/15/20 07/16/20 07/17/20 06:59 06:59 06:59 Intake Total 900 Output Total 150 Balance 750 Weight 43 kg General appearance: PRESENT: cooperative, mild distress, thin Head exam: PRESENT: atraumatic, normocephalic Eye exam: PRESENT: conjunctiva pale. ABSENT: scleral icterus Ear exam: PRESENT: normal external ear exam. ABSENT: bleeding, drainage Mouth exam: PRESENT: dry mucosa, tongue midline Neck exam: ABSENT: carotid bruit, JVD, lymphadenopathy, tracheostomy Respiratory exam: PRESENT: decreased breath sounds - Very limited inspiratory phase. Difficult to auscultate. He does exhibit some increased work of breathing., symmetrical. ABSENT: accessory muscle use, rales, rhonchi, tachypnea, wheezes Cardiovascular exam: PRESENT: RRR, +S1, +S2. ABSENT: bradycardia, diastolic murmur, irregular rhythm, systolic murmur, tachycardia GI/Abdominal exam: PRESENT: normal bowel sounds, soft, other - Scaphoid abdomen. ABSENT: distended, tenderness Rectal exam: PRESENT: deferred Gentrourinary exam: ABSENT: indwelling catheter Extremities exam: ABSENT: pedal edema Musculoskeletal exam: PRESENT: ambulatory, other - Significantly decreased muscle mass. ABSENT: deformity, dislocation Neurological exam: PRESENT: alert, awake, oriented to person, oriented to place, oriented to time, oriented to situation, CN II-XII grossly intact. ABSENT: altered Psychiatric exam: PRESENT: appropriate affect. ABSENT: agitated, anxious Focused psych exam: ABSENT: delusional, paranoid, restlessness Skin exam: PRESENT: dry, pallor, warm. ABSENT: rash Results Laboratory Results: 07/16/20 09:05 07/16/20 05:00 07/15/20 07/15/20 07/15/20 19:30 19:30 20:10 WBC Cancelled RBC Cancelled Hgb Cancelled Hct Cancelled MCV Cancelled MCH Cancelled MCHC Cancelled RDW Cancelled Plt Count Cancelled Seg Neutrophils % Cancelled Sodium 138.4 Potassium 5.1 H Chloride 94 L Carbon Dioxide 41 H* Anion Gap 3 L BUN 62 H Creatinine 1.03 Est GFR ( Amer) > 60 Glucose 138 H Calcium 9.1 Magnesium Total Bilirubin 0.3 AST 41 Alkaline Phosphatase 48 Total Protein 5.1 L Albumin 2.8 L TSH Urine Color YELLOW Urine Appearance SLIGHTLY-CLOUDY Urine pH 5.0 Ur Specific [place] 1.012 Urine Protein NEGATIVE Urine Glucose (UA) NEGATIVE Urine Ketones NEGATIVE Urine Blood NEGATIVE Urine Nitrite NEGATIVE Ur Leukocyte Esterase MODERATE H Urine WBC (Auto) 3 Urine RBC (Auto) 1 Blood Type Antibody Screen 07/15/20 07/15/20 07/16/20 20:19 20:43 05:00 WBC 8.5 Cancelled RBC 2.15 L Cancelled Hgb 5.3 L Cancelled Hct 16.9 L Cancelled MCV 79 L D Cancelled MCH 24.8 L Cancelled MCHC 31.5 L Cancelled RDW 39.1 H Cancelled Plt Count 210 Cancelled Seg Neutrophils % Not Reportable Cancelled Sodium Potassium Chloride Carbon Dioxide Anion Gap BUN Creatinine Est GFR ( Amer) Glucose Calcium Magnesium Total Bilirubin AST Alkaline Phosphatase Total Protein Albumin TSH Urine Color Urine Appearance Urine pH Ur Specific [place] Urine Protein Urine Glucose (UA) Urine Ketones Urine Blood Urine Nitrite Ur Leukocyte Esterase Urine WBC (Auto) Urine RBC (Auto) Blood Type O POSITIVE Antibody Screen NEGATIVE 07/16/20 07/16/20 07/16/20 05:00 05:00 09:05 WBC 5.2 RBC 3.61 L Hgb 9.6 L D Hct 29.7 L MCV 82 MCH 26.7 L MCHC 32.4 RDW 29.6 H Plt Count 207 Seg Neutrophils % 81.1 H Sodium 139.0 Potassium 4.7 Chloride 98 Carbon Dioxide 38 H Anion Gap 3 L BUN 56 H Creatinine 0.93 Est GFR ( Amer) > 60 Glucose 127 H Calcium 8.5 Magnesium 2.3 Total Bilirubin AST Alkaline Phosphatase Total Protein Albumin TSH 0.38 L Urine Color Urine Appearance Urine pH Ur Specific [place] Urine Protein Urine Glucose (UA) Urine Ketones Urine Blood Urine Nitrite Ur Leukocyte Esterase Urine WBC (Auto) Urine RBC (Auto) Blood Type Antibody Screen 07/15/20 07/15/20 19:30 19:30 Troponin I 0.018 NT-Pro-B Natriuret Pep 871 H Impressions: Chest X-Ray 07/15/20 18:56 IMPRESSION: Decreased pulmonary edema with no other definite significant change. Assessment and Plan - Diagnosis (1) GI bleed Qualifiers: GI bleed type/associated pathology: unspecified gastrointestinal hemorrhage type Qualified Code(s): K92.2 - Gastrointestinal hemorrhage, unspecified Is this a current diagnosis for this admission?: Yes (2) COPD (chronic obstructive pulmonary disease) Qualifiers: COPD type: unspecified COPD Qualified Code(s): J44.9 - Chronic obstructive pulmonary disease, unspecified Is this a current diagnosis for this admission?: Yes (3) Chronic respiratory failure with hypoxia and hypercapnia Is this a current diagnosis for this admission?: Yes (4) Chronic combined systolic and diastolic CHF (congestive heart failure) Is this a current diagnosis for this admission?: Yes (5) Pulmonary hypertension, mild Is this a current diagnosis for this admission?: Yes (6) Symptomatic anemia Is this a current diagnosis for this admission?: Yes (7) Iron deficiency anemia due to chronic blood loss Is this a current diagnosis for this admission?: Yes (8) Cachexia Is this a current diagnosis for this admission?: Yes (9) Hyperthyroidism Is this a current diagnosis for this admission?: Yes - Plan Summary Summary: The patient was admitted with recurrent severe anemia. During previous admission he did not have any blood in his stool but now his stool is heme positive. He obviously losing blood from the gastrointestinal tract. It is unclear whether this is an upper or lower bleed. He is not bleeding actively. Most likely will need upper and lower endoscopy. He has severe chronic shortness of breath, his respiratory status at baseline. (1) GI bleed (2) COPD (chronic obstructive pulmonary disease) (3) Chronic respiratory failure with hypoxia and hypercapnia (4) Chronic combined systolic and diastolic CHF (congestive heart failure) (5) Pulmonary hypertension, mild (6) Symptomatic anemia (7) Iron deficiency anemia due to chronic blood loss (8) Cachexia (9) Hyperthyroidism 07/16/2020 GI bleed-patient received 2 units of packed red blood cells. Hemoglobin has increased to 9.6 from 5.3. We will continue to monitor. Patient is scheduled for bowel prep today and endoscopy tomorrow. COPD-continue Trelegy (2 substitute for Advair and Spiriva) with scheduled and as needed nebulizer treatments Respiratory failure-continue oxygen supplementation. Maintain oxygen saturation between 88 and 92%. Combined systolic and diastolic heart failure-stable on current regimen. BUN is elevated. I will hold the furosemide today. Mild pulmonary hypertension secondary to COPD-no specific treatment at this time. Anemia-likely iron deficient from chronic blood loss. Iron studies have been ordered. Consider IV iron dosing before discharge. Cachexia-combination of severe end-stage COPD and compromised cardiac status. Hyperthyroidism-on 2 subsequent admissions the patient's TSH was abnormally low. I have ordered free T3 and free T4 to see if it is sick euthyroid or truly hyperthyroidism. Covid testing-the patient is having endoscopy tomorrow. I have ordered a Covid test for screening. It is very difficult to know if his respiratory status has been compromised due to a viral infection. He talked about anosmia and then kell d me that the food tastes terrible. It is difficult to get a specific answer. The rapid screen has been ordered for endoscopy and if positive will implement Covid treatment. - Time Time Spent with patient: 15-24 minutes Medications reviewed and adjusted accordingly: Yes Anticipated Discharge Disposition: Unknown Anticipated Discharge Timeframe: Unknown
[2020-07-16] MEDS ORDERED: PEG 3350/NA SULF,BICARB,CL/KCL 4000 ML PO ONE (11:00)
--- NOTE | 2020-07-16 16:40 | PDOC DISCHARGE SUMMARY ---
Impression - Admit/DC Date/PCP Admission Date/Primary Care Provider: 07/15/20 23:51 SANIYA TUTTLE MD Discharge Date: 07/16/20 - Discharge Diagnosis (1) GI bleed Is this a current diagnosis for this admission?: Yes (2) COPD (chronic obstructive pulmonary disease) Is this a current diagnosis for this admission?: Yes (3) Chronic respiratory failure with hypoxia and hypercapnia Is this a current diagnosis for this admission?: Yes (4) Chronic combined systolic and diastolic CHF (congestive heart failure) Is this a current diagnosis for this admission?: Yes (5) Pulmonary hypertension, mild Is this a current diagnosis for this admission?: Yes (6) Symptomatic anemia Is this a current diagnosis for this admission?: Yes (7) Iron deficiency anemia due to chronic blood loss Is this a current diagnosis for this admission?: Yes (8) Cachexia Is this a current diagnosis for this admission?: Yes (9) Hyperthyroidism Is this a current diagnosis for this admission?: Yes - Assessment Summary: The patient was admitted with recurrent severe anemia. During previous admission he did not have any blood in his stool but now his stool is heme positive. He obviously losing blood from the gastrointestinal tract. It is unclear whether this is an upper or lower bleed. He is not bleeding actively. Most likely will need upper and lower endoscopy. He has severe chronic shortness of breath, his respiratory status at baseline. (1) GI bleed (2) COPD (chronic obstructive pulmonary disease) (3) Chronic respiratory failure with hypoxia and hypercapnia (4) Chronic combined systolic and diastolic CHF (congestive heart failure) (5) Pulmonary hypertension, mild (6) Symptomatic anemia (7) Iron deficiency anemia due to chronic blood loss (8) Cachexia (9) Hyperthyroidism 07/16/2020 GI bleed-patient received 2 units of packed red blood cells. Hemoglobin has increased to 9.6 from 5.3. We will continue to monitor. Patient is scheduled for bowel prep today and endoscopy tomorrow. COPD-continue Trelegy (2 substitute for Advair and Spiriva) with scheduled and as needed nebulizer treatments Respiratory failure-continue oxygen supplementation. Maintain oxygen saturation between 88 and 92%. Combined systolic and diastolic heart failure-stable on current regimen. BUN is elevated. I will hold the furosemide today. Mild pulmonary hypertension secondary to COPD-no specific treatment at this time. Anemia-likely iron deficient from chronic blood loss. Iron studies have been ordered. Consider IV iron dosing before discharge. Cachexia-combination of severe end-stage COPD and compromised cardiac status. Hyperthyroidism-on 2 subsequent admissions the patient's TSH was abnormally low. I have ordered free T3 and free T4 to see if it is sick euthyroid or truly hyperthyroidism. Covid testing-the patient is having endoscopy tomorrow. I have ordered a Covid test for screening. It is very difficult to know if his respiratory status has been compromised due to a viral infection. He talked about anosmia and then told me that the food tastes terrible. It is difficult to get a specific answer. The rapid screen has been ordered for endoscopy and if positive will implement Covid treatment. - Additional Information Discharge Diet: Cardiac Discharge Activity: Balance Activity w/Rest Referrals: SANIYA TUTTLE MD [Primary Care Provider] - Follow up as needed Prescriptions: Sucralfate [Carafate 1 gm Tablet] 1 gm PO ACHS #120 tablet Pantoprazole Sodium [Protonix [address] Tablet] 40 mg PO BID #60 tablet. Home Medications: Fluticasone/Salmeterol [Advair 250-50 Diskus 14 Dose/Diskus] 1 puff IH Q12 06/27/20 Ipratropium/Albuterol Sulfate [Duoneb 3 ml Ampul] 1 vial NEB RTQ6 06/27/20 Simvastatin [Zocor 40 mg Tablet] 40 mg PO QPM 06/27/20 Tiotropium Challenge [Spiriva Handihaler 5 Cap/Kit (18 Mcg/Cap)] 1 cap IH DAILY 06/27/20 Ferrous Sulfate [Feosol 325 mg Tablet] 325 mg PO ASDIR PRN #30 tablet 07/04/20 Furosemide [Lasix 20 mg Tablet] 20 mg PO DAILY #30 tablet 07/04/20 Lisinopril [Prinivil 5 mg Tablet] 2.5 mg PO DAILY #30 tablet 07/04/20 Pantoprazole Sodium [Protonix [address] Tablet] 40 mg PO BID #60 tablet.dr 07/16/20 Sucralfate [Carafate 1 gm Tablet] 1 gm PO ACHS #120 tablet 07/16/20 History of Present Illiness History of Present Illness: JAVIER MARTINEZ is a 79 year old maleThe patient is severely deconditioned, cachectic, suffering from chronic hypoxic respiratory failure severe advanced emphysema and congestive heart failure. He was admitted to the hospital on June 26 and discharged on July 04. He was treated for symptomatic anemia with 2 units of packed red blood cell transfusion and intravenous iron. He was referred to gastroenterology for outpatient endoscopic evaluation. The patient did not follow-up. During the hospitalization the patient did not have any sign of ongoing bleeding, his stool was heme-negative. He is very weak and chronically deconditioned. He has significant chronic shortness of breath. For the last 24 hours he became more weak, he had several dark stools. He had more shortness of breath usually. He almost passed out because he was so lightheaded. In the emergency department he was hemodynamically stable. He was found to have a hemoglobin of 5.3. He was started on blood transfusions. When I saw him he was obviously having shortness of breath but he told me that this is normal for him. He said he is feeling as usual. Hospital Course Hospital Course: As above. I had a long discussion with the patient's brother. With the procedure postponed and his current condition being is stable he will discharged home. Bowel discussed with his PCP tomorrow. He will need repeat laboratory studies as well as outpatient referral for endoscopy. For his Covid positive status I recommended the typical supplements. He already has nebulizers at home. I believe the prednisone therapy is the cause of the bleeding. I have instituted Protonix and Carafate therapy at the time of discharge. Physical Exam Vital Signs: Temp Pulse Resp BP Pulse Ox 97.6 F 79 18 123/59 L 91 L 07/16/20 13:28 07/16/20 14:35 07/16/20 14:35 07/16/20 13:28 07/16/20 14:35 Intake & Output 07/15/20 07/16/20 07/17/20 06:59 06:59 06:59 Intake Total 900 240 Output Total 150 100 Balance 750 140 Weight 43 kg General appearance: PRESENT: cooperative, mild distress - Chronic Respiratory exam: PRESENT: tachypnea, other - Barrel chested. ABSENT: rales, rh onchi, wheezes Cardiovascular exam: PRESENT: RRR, +S1, +S2 GI/Abdominal exam: PRESENT: normal bowel sounds, soft, other - Scaphoid abdomen. ABSENT: tenderness Rectal exam: PRESENT: deferred Gentrourinary exam: ABSENT: indwelling catheter Extremities exam: ABSENT: pedal edema Musculoskeletal exam: PRESENT: other - Decreased muscle mass Neurological exam: PRESENT: alert, awake, oriented to person, oriented to place, oriented to time, oriented to situation, other - Dysphonia-due to the patient's compromised respiratory status it is impossible for him to talk in complete sentences. Psychiatric exam: PRESENT: unusual affect - Affect reflects his complex current illness. ABSENT: agitated, anxious Focused psych exam: ABSENT: delusional, paranoid, restlessness Results Laboratory Results: WBC 5.2 10^3/uL (4.0-10.5) 07/16/20 09:05 RBC 3.61 10^6/uL (4.35-5.55) L 07/16/20 09:05 Hgb 9.6 g/dL (13.5-17.0) L D 07/16/20 09:05 Hct 29.7 % (37.9-51.0) L 07/16/20 09:05 MCV 82 fl (80-97) 07/16/20 09:05 MCH 26.7 pg (27.0-33.4) L 07/16/20 09:05 MCHC 32.4 g/dL (32.0-36.0) 07/16/20 09:05 RDW 29.6 % (11.5-14.0) H 07/16/20 09:05 Plt Count 207 10^3/uL (150-450) 07/16/20 09:05 Lymph % (Auto) 13.6 % (13-45) 07/16/20 09:05 [place] % (Auto) 5.2 % (3-13) 07/16/20 09:05 Eos % (Auto) 0.0 % (0-6) 07/16/20 09:05 Baso % (Auto) 0.1 % (0-2) 07/16/20 09:05 Absolute Neuts (auto) 4.2 10^3/uL (1.7-8.2) 07/16/20 09:05 Absolute Lymphs (auto) 0.7 10^3/uL (0.5-4.7) 07/16/20 09:05 Absolute Monos (auto) 0.3 10^3/uL (0.1-1.4) 07/16/20 09:05 Absolute Eos (auto) 0.0 10^3/uL (0.0-0.6) 07/16/20 09:05 Absolute Basos (auto) 0.0 10^3/uL (0.0-0.2) 07/16/20 09:05 Total Counted 100 07/15/20 20:19 Seg Neutrophils % 81.1 % (42-78) H 07/16/20 09:05 Seg Neuts % (Manual) 97 % (42-78) H 07/15/20 20:19 Lymphocytes % (Manual) 3 % (13-45) L 07/15/20 20:19 Monocytes % (Manual) 0 % (3-13) L 07/15/20 20:19 Eosinophils % (Manual) 0 % (0-6) 07/15/20 20:19 Basophils % (Manual) 0 % (0-2) 07/15/20 20:19 Abs Neuts (Manual) 8.2 10^3/uL (1.7-8.2) 07/15/20 20:19 Abs Lymphs (Manual) 0.3 10^3/uL (0.5-4.7) L 07/15/20 20:19 Abs Monocytes (Manual) 0.0 10^3/uL (0.1-1.4) L 07/15/20 20:19 Absolute Eos (Manual) 0.0 10^3/uL (0.0-0.6) 07/15/20 20:19 Abs Basophils (Manual) 0.0 10^3/uL (0.0-0.2) 07/15/20 20:19 Hypersegmented Neuts Cancelled 07/16/20 05:00 Smudge Cells Cancelled 07/16/20 05:00 Toxic Granulation Cancelled 07/16/20 05:00 Toxic Vacuolation Cancelled 07/16/20 05:00 Dohle Bodies Cancelled 07/16/20 05:00 Renee Rods Cancelled 07/16/20 05:00 WBC Morphology Comment Cancelled 07/16/20 05:00 Platelet Estimate Cancelled 07/16/20 05:00 Clumped Platelets Cancelled 07/16/20 05:00 Large Platelets Cancelled 07/16/20 05:00 Giant Platelets Cancelled 07/16/20 05:00 Platelet Comment ADEQUATE 07/16/20 09:05 Polychromasia SLIGHT 07/16/20 09:05 Hypochromasia SLIGHT 07/16/20 09:05 Poikilocytosis Cancelled 07/16/20 05:00 Basophilic Stippling Cancelled 07/16/20 05:00 Anisocytosis 4+ 07/16/20 09:05 Microcytosis Cancelled 07/16/20 05:00 Macrocytosis Cancelled 07/16/20 05:00 Spherocytes Cancelled 07/16/20 05:00 Pappenheimer Bodies Cancelled 07/16/20 05:00 Sickle Cells Cancelled 07/16/20 05:00 Target Cells Cancelled 07/16/20 05:00 Tear Drop Cells Cancelled 07/16/20 05:00 Ovalocytes 1+ 07/16/20 09:05 Stomatocytes Cancelled 07/16/20 05:00 Helmet Cells Cancelled 07/16/20 05:00 [place] Bodies Cancelled 07/16/20 05:00 Salvatore Cells Cancelled 07/16/20 05:00 Acanthocytes (Spur) Cancelled 07/16/20 05:00 Rouleaux Cancelled 07/16/20 05:00 Schistocytes Cancelled 07/16/20 05:00 RBC Morph Comment Cancelled 07/16/20 05:00 Sodium 139.0 mmol/L (137-145) 07/16/20 05:00 Potassium 4.7 mmol/L (3.6-5.0) 07/16/20 05:00 Chloride 98 mmol/L (98-107) 07/16/20 05:00 Carbon Dioxide 38 mmol/L (22-30) H 07/16/20 05:00 Anion Gap 3 (5-19) L 07/16/20 05:00 BUN 56 mg/dL (7-20) H 07/16/20 05:00 Creatinine 0.93 mg/dL (0.52-1.25) 07/16/20 05:00 Est GFR ( Amer) > 60 (>60) 07/16/20 05:00 Est GFR (MDRD) Non-Af > 60 (>60) 07/16/20 05:00 Glucose 127 mg/dL (75-110) H 07/16/20 05:00 Calcium 8.5 mg/dL (8.4-10.2) 07/16/20 05:00 Magnesium 2.3 mg/dL (1.6-2.3) 07/16/20 05:00 Total Bilirubin 0.3 mg/dL (0.2-1.3) 07/15/20 19:30 Direct Bilirubin 0.1 mg/dL (0.0-0.4) 07/15/20 19:30 Neonat Total Bilirubin Not Reportable 07/15/20 19:30 Neonat Direct Bilirubin Not Reportable 07/15/20 19:30 Neonat Indirect Bili Not Reportable 07/15/20 19:30 AST 41 U/L (17-59) 07/15/20 19:30 ALT 27 U/L (<50) 07/15/20 19:30 Alkaline Phosphatase 48 U/L (38-126) 07/15/20 19:30 Troponin I 0.018 ng/mL 07/15/20 19:30 NT-Pro-B Natriuret Pep 871 pg/mL (<450) H 07/15/20 19:30 Total Protein 5.1 g/dL (6.3-8.2) L 07/15/20 19:30 Albumin 2.8 g/dL (3.5-5.0) L 07/15/20 19:30 TSH 0.38 uIU/mL (0.47-4.68) L 07/16/20 05:00 Urine Color YELLOW 07/15/20 20:10 Urine Appearance SLIGHTLY-CLOUDY 07/15/20 20:10 Urine pH 5.0 (5.0-9.0) 07/15/20 20:10 Ur Specific [place] 1.012 07/15/20 20:10 Urine Protein NEGATIVE mg/dL (NEGATIVE) 07/15/20 20:10 Urine Glucose (UA) NEGATIVE mg/dL (NEGATIVE) 07/15/20 20:10 Urine Ketones NEGATIVE mg/dL (NEGATIVE) 07/15/20 20:10 Urine Blood NEGATIVE (NEGATIVE) 07/15/20 20:10 Urine Nitrite NEGATIVE (NEGATIVE) 07/15/20 20:10 Urine Bilirubin NEGATIVE (NEGATIVE) 07/15/20 20:10 Urine Urobilinogen NEGATIVE mg/dL (<2.0) 07/15/20 20:10 Ur Leukocyte Esterase MODERATE (NEGATIVE) H 07/15/20 20:10 Urine WBC (Auto) 3 /HPF 07/15/20 20:10 Urine RBC (Auto) 1 /HPF 07/15/20 20:10 U Hyaline Cast (Auto) 46 /LPF 07/15/20 20:10 Squamous Epi Cells Auto <1 /HPF 07/15/20 20:10 Urine Mucus (Auto) OCC /LPF 07/15/20 20:10 Urine Ascorbic Acid NEGATIVE (NEGATIVE) 07/15/20 20:10 Influenza A (RT-PCR) NEGATIVE (NEGATIVE) 07/16/20 10:13 Influenza B (RT-PCR) NEGATIVE (NEGATIVE) 07/16/20 10:13 RSV (RT-PCR) NEGATIVE (NEGATIVE) 07/16/20 10:13 SARS-CoV-2 Rap RNA(RT-PCR) POSITIVE (NEGATIVE) 07/16/20 10:13 Slides for Path Review Cancelled 07/16/20 05:00 Blood Type O POSITIVE 07/15/20 20:43 Antibody Screen NEGATIVE 07/15/20 20:43 Crossmatch See Detail 07/15/20 20:43 07/15/20 07/15/20 19:30 19:30 Troponin I 0.018 NT-Pro-B Natriuret Pep 871 H Impressions: Chest X-Ray 07/15/20 18:56 IMPRESSION: Decreased pulmonary edema with no other definite significant change. Plan Health Concerns: Patient with multiple severe comorbidities that now Covid positive. His survivability of an aggressive pneumonia with Covid virus would be extremely poor. Plan of Treatment: I spoke to the patient's brother. As the patient tested positive endoscopy will be postponed. Reviewing the patient's last hospitalization he received 2 units of packed cells and his hemoglobin was actually stable for a week. It is most likely that the patient's steroid dose is causing the problem. He will continue his iron. I have prescribed Protonix 40 mg twice a day and Carafate 1 g before meals and at bedtime proactively treating for gastritis/ulcer. In addition the patient already has oxygen and nebulizer treatments at home. I have instructed him to add the supplements typically given with coronavirus patients including vitamin C, vitamin D, zinc and melatonin. I stressed to the patient and his brother that if the patient suffers a worsening of his respiratory status to return to the hospital. Unfortunately the patient has end-stage COPD as well as combined systolic and diastolic heart failure. I reviewed all of this with the patient and his brother Mateo. Goals: Successful treatment of recurrent GI bleeding Time Spent: Greater than 30 Minutes Stroke Is this a Stroke Patient?: No Acute Heart Failure Is this a Heart Failure Patient?: No
[2020-07-16 16:47] VITALS: BP 122/55
[2020-07-16] MEDS ORDERED: ACETAZOLAMIDE 250 MG TABLET PO SCH (22:00)
[2020-07-16] MEDS ORDERED: SIMVASTATIN 40 MG TABLET PO SCH (22:00)
--- NOTE | 2020-07-17 00:18 | EKG REPORT ---
SEVERITY:- BORDERLINE ECG - SINUS RHYTHM CONSIDER RIGHT VENTRICULAR HYPERTROPHY LVH BY VOLTAGE : Confirmed by: Valentino Slater 17-Jul-2020 00:17:52
[2020-07-17] MEDS ORDERED: FLUTICASONE/UMECLIDIN/VILANTER 100-62.5-25 MCG/DOSE IH SCH (10:00)
[2020-07-17] MEDS ORDERED: LISINOPRIL 5 MG TABLET PO SCH (10:00)
== END 2020-07-16 18:08 | disposition home or self-care (01) | DRG 377 ==
LOC: ER 18:10 → EH 23:51 → 5 07-16 01:27 → 3W 07-16 13:19
PROVIDERS: ADMIT Internal Medicine; ATTEND Hospitalist
PROC: 30233N1 Transfusion of Nonautologous Red Blood Cells into Peripheral Vein, Percutaneous Approach (ICD-10-PCS; principal; 2020-07-15)
DX: K92.1 Melena (principal); U07.1 COVID-19; J96.12 Chronic respiratory failure with hypercapnia; J96.11 Chronic respiratory failure with hypoxia; I50.42 Chronic combined systolic (congestive) and diastolic (congestive) heart failure; E44.0 Moderate protein-calorie malnutrition; R64 Cachexia; T38.0X5A Adverse effect of glucocorticoids and synthetic analogues, initial encounter; D50.0 Iron deficiency anemia secondary to blood loss (chronic); J43.9 Emphysema, unspecified; I27.20 Pulmonary hypertension, unspecified; E05.90 Thyrotoxicosis, unspecified without thyrotoxic crisis or storm; Z87.891 Personal history of nicotine dependence; Z99.81 Dependence on supplemental oxygen; Z79.899 Other long term (current) drug therapy; Z79.51 Long term (current) use of inhaled steroids
CPT/HCPCS: 36415; 36430; 71045; 80048; 80053; 81001; 82270; 83735; 83880; 84443; 84484; 85025; 86850; 86900; 86901; 86920; 87086; 93005; 93010; 94640; 99285; 0241U; C9113; C9803; J3490; P9016

== ENCOUNTER 2020-07-21 15:05 | Observation (INO) | payer MEDICARE ==
--- NOTE | 2020-07-21 16:12 | RADIOLOGY REPORT (SQ) ---
EXAM DESCRIPTION: CHEST SINGLE VIEW IMAGES COMPLETED DATE/TIME: 07/21/2020 3:59 pm REASON FOR STUDY: sob COMPARISON: 07/15/2020 EXAM PARAMETERS: NUMBER OF VIEWS: One view. TECHNIQUE: Single frontal radiographic view of the chest acquired. RADIATION DOSE: NA LIMITATIONS: None. FINDINGS: LUNGS AND PLEURA: Severe emphysematous change with hyperinflation and chronic interstitial opacities. No definitive airspace disease. Biapical scarring, stable. No significant effusion. N o pneumothorax. Eventration of the right hemidiaphragm. MEDIASTINUM AND HILAR STRUCTURES: No masses. Contour normal. HEART AND VASCULAR STRUCTURES: Normal heart size. Aortic atherosclerosis. BONES: No acute findings. HARDWARE: None in the chest. OTHER: No other significant finding. IMPRESSION: Severe emphysematous change without evidence of acute cardiopulmonary process. TECHNICAL DOCUMENTATION: JOB ID: [id number] [email or web address]- All Rights Reserved Reading location - IP/workstation name: [email or web address]
[2020-07-21 16:42] LABS: ABSOLUTE LYMPHOCYTES (AUTO) 0.6 10^3/uL (0.5-4.7); ABSOLUTE MONOCYTES (AUTO) 0.3 10^3/uL (0.1-1.4); ABSOLUTE NEUT (AUTO) 4.5 10^3/uL (1.7-8.2); BASOPHILS % (AUTO) 0.1 % (0-2); EOSINOPHILS % (AUTO) 0.4 % (0-6); HEMATOCRIT 27.9 % (37.9-51.0); LYMPHOCYTES % (AUTO) 10.4 % (13-45); MEAN CORPUSCULAR HEMOGLOBIN 27.7 pg (27.0-33.4); MEAN CORPUSCULAR HGB CONC 32.2 g/dL (32.0-36.0); MONOCYTES % (AUTO) 6.1 % (3-13); PLATELET COUNT 157 10^3/uL (150-450); RED BLOOD COUNT 3.24 10^6/uL (4.35-5.55); RED CELL DISTRIBUTION WIDTH 28.7 % (11.5-14.0); TOTAL CELLS COUNTED % (AUTO) 100 %; WHITE BLOOD COUNT 5.4 10^3/uL (4.0-10.5)
--- NOTE | 2020-07-21 16:53 | ER Document Report ---
ED Respiratory Problem - General Chief Complaint: Shortness Of Breath Stated Complaint: SHORTNESS OF BREATH Time Seen by Provider: 07/21/20 15:48 Primary Care Provider: SANIYA TUTTLE MD [Primary Care Provider] - Follow up as needed Mode of Arrival: Medic Notes: 79-year-old man presenting to the emergency department with a history of COPD/emphysema apparently became very dyspneic and short of breath today EMS was called to the home. Patient given multiple nebulizer treatments Solu-Medrol and magnesium by EMS. Here, he states that he is breathing some what better. He is on home O2, he is also on nebulizer treatment at home. He denies fever, exposure to a known positive coronavirus individual or GI symptoms. Patient tested positive for the coronavirus on 07/16/2020. And a rapid coronavirus test which was performed by EMS today was also noted to be positive. TRAVEL OUTSIDE OF THE [place] IN LAST 30 DAYS: No - Related Data Allergies/Adverse Reactions: No Known Allergies Allergy (Verified 07/21/20 15:42) Past Medical History - Social History Smoking Status: Former Smoker Chew tobacco use (# tins/day): No Frequency of alcohol use: None Drug Abuse: None Family History: None Patient has homicidal ideation: No - Past Medical History Cardiac Medical History: Reports: Hx Congestive Heart Failure - Ejection fraction 40 to 45% a few weeks ago Pulmonary Medical History: Reports: Hx COPD Psychiatric Medical History: Denies: Hx Depression Past Surgical History: Denies: Hx Cardiac Catheterization, Hx Coronary Artery Bypass Graft - Immunizations Hx Pneumococcal Vaccination: 08/04/14 Review of Systems - Review of Systems Notes: Constitutional: Negative for fever. HENT: Negative for sore throat. Eyes: Negative for visual changes. Cardiovascular: Negative for chest pain. Respiratory: See HPI Gastrointestinal: Negative for abdominal pain, vomiting or diarrhea. Genitourinary: Negative for dysuria. Musculoskeletal: Negative for back pain. Skin: Negative for rash. Neurological: Negative for headaches, weakness or numbness. 10 point ROS negative except as marked above and in HPI. Physical Exam - Vital signs Vitals: Temp 97.6 F 07/21/20 15:05 - Notes Notes: PHYSICAL EXAMINATION: Physical Exam: General: Frail elderly male in mild distress secondary to shortness of breath HEENT: NC/AT, pupils equal round and reactive to light, MM moist,nares clear, oropharynx clear, airway patent Neck: supple, no adenopathy, no masses. Good range of motion Lungs: Rapid, short breaths with accessory muscles of respiration use. CVS: Regular rate and rhythm no murmur gallop or rub Abdomen: Soft, active, nontender, no masses, no hepatosplenomegaly Ext: No edema, clubbing or cyanosis. Neuro: Alert and responsive, moving all 4 extremities on command, cranial nerves intact, no focal findings Skin: Intact no open lesions, no rash Course - Re-evaluation Re-evalutation: 07/21/20 20:57 Acute on chronic respiratory failure, elevated PCO2, increased work to breathe. Patient is afebrile, hypotensive and volume depleted. He is given a 500 cc bolus, repeat DuoNeb treatments and placed on BiPAP. I have discussed the patient with the hospitalist , he has requested a rapid coronavirus test be performed. Patient will be seen in the emergency department and admitted to the hospitalist service. - Vital Signs Vital signs: Temp Pulse Resp BP Pulse Ox 97.6 F 30 H 90/54 L 92 07/21/20 15:08 07/21/20 18:01 07/21/20 18:00 07/21/20 18:01 - Laboratory Results Result Diagrams: 07/21/20 16:15 07/21/20 16:15 Laboratory Results Interpreted: 07/21/20 07/21/20 07/21/20 16:15 16:15 16:15 RBC 3.24 L Hgb 9.0 L Hct 27.9 L RDW 28.7 H Lymph % (Auto) 10.4 L Seg Neutrophils % 83.0 H VBG pCO2 VBG HCO3 Chloride 94 L Carbon Dioxide 40 H* BUN 41 H Calcium 8.1 L Creatine Kinase < 20 L NT-Pro-B Natriuret Pep 842 H Total Protein 5.7 L Albumin 3.0 L 07/21/20 17:42 RBC Hgb Hct RDW Lymph % (Auto) Seg Neutrophils % VBG pCO2 76.7 H* VBG HCO3 37.7 H Chloride Carbon Dioxide BUN Calcium Creatine Kinase NT-Pro-B Natriuret Pep Total Protein Albumin Critical Laboratory Results Reviewed: No Critical Results - Radiology Results Radiology Results Interpreted: 07/21/20 21:00 Chest X-Ray 07/21/20 15:37 IMPRESSION: Severe emphysematous change without evidence of acute cardiopulmonary process. Critical Radiology Results Reviewed: No Critical Results - EKG Interpretation by Mn Rate: Normal - EKG interpreted by Dr. Fitzgerald: Normal sinus rhythm, rate 93, WA interval 134 ms QT interval 376 ms, normal axis, probable left atrial abnormalit [id number], no ischemic findings, compared to EKG dated 07/15/2020, there are no acute interval EKG changes.. Interpretation Abnormal EKG Critical Care Note - Critical Care Note Total time excluding time spent on procedures (mins): 45 - Critical care time spent obtaining history from patient or surrogate, discussions with consultants, development of treatment plan with patient or surrogate, evaluation of patient's response to treatment, examination of patient, ordering and performing treatments and interventions, ordering and review of laboratory studies, re- evaluation of patient's condition, ordering and review of radiographic studies and review of old charts Discharge - Discharge Clinical Impression: Acute on chronic respiratory failure with hypoxia and hypercapnia, COVID-19 virus detected Anemia Qualifiers: Anemia type: unspecified type Qualified Code(s): D64.9 - Anemia, unspecified Condition: Fair Disposition: ADMITTED INPATIENT Admitting Provider: Dr Dolan - Hospitalist Unit Admitted: Medical Floor Referrals: SANIYA TUTTLE MD [Primary Care Provider] - Follow up as needed
[2020-07-21 16:57] LABS: ALKALINE PHOSPHATASE 82 U/L (38-126); ASPARTATE AMINO TRANSFERASE 40 U/L (17-59); BILIRUBIN,DIRECT 0.2 mg/dL (0.0-0.4); BILIRUBIN,TOTAL 0.6 mg/dL (0.2-1.3); BLOOD UREA NITROGEN 41 mg/dL (7-20); CALCIUM 8.1 mg/dL (8.4-10.2); CHLORIDE 94 mmol/L (98-107); GLUCOSE 101 mg/dL (75-110); POTASSIUM 3.7 mmol/L (3.6-5.0); TOTAL PROTEIN 5.7 g/dL (6.3-8.2)
[2020-07-21 17:03] LABS: MEAN CORPUSCULAR VOLUME 86 fl (80-97)
[2020-07-21 17:04] LABS: ANION GAP 5 (5-19)
[2020-07-21 17:05] LABS: ANISOCYTOSIS 4+; HYPOCHROMASIA SLIGHT; OVALOCYTES SLIGHT; PLATELET COMMENT ADEQUATE; POIKILOCYTOSIS SLIGHT; TARGET CELLS SLIGHT; TEAR DROP CELLS SLIGHT
[2020-07-21 17:07] LABS: CREATINE KINASE < 20 U/L (55-170)
[2020-07-21 17:08] LABS: CARBON DIOXIDE 40 mmol/L (22-30); CREATINE KINASE MB 0.88 ng/mL (<4.55); TROPONIN I 0.02 ng/mL
[2020-07-21 18:38] LABS: VENOUS BLOOD BASE EXCESS 9.6 mmol/L; VENOUS BLOOD HCO3 37.7 mmol/L (20-32); VENOUS BLOOD PH 7.31 (7.30-7.42)
[2020-07-21 18:40] LABS: VENOUS BLOOD PCO2 76.7 mmHg (35-63)
[2020-07-21] MEDS ORDERED: NORMAL SALINE 500 ML IV ONE (21:12)
[2020-07-21] MEDS ORDERED: IPRATROPIUM/ALBUTEROL 0.5-2.5 MG/3 ML AMPUL NEB ONE (21:14)
[2020-07-21] MEDS ORDERED: IPRATROPIUM/ALBUTEROL 0.5-2.5 MG/3 ML AMPUL NEB PRN (22:15)
[2020-07-21] MEDS ORDERED: ACETAMINOPHEN 325 MG TABLET PO PRN (22:15)
[2020-07-21 22:25] LABS: APPEARANCE,URINE SLIGHTLY-CLOUDY; BILIRUBIN,URINE NEGATIVE (NEGATIVE); COLOR,URINE YELLOW; GLUCOSE, URINE NEGATIVE (NEGATIVE); KETONES,URINE NEGATIVE (NEGATIVE); LEUKOCYTE ESTERASE,URINE TRACE (NEGATIVE); NITRITE,URINE NEGATIVE (NEGATIVE); PROTEIN,URINE NEGATIVE (NEGATIVE); URINE SPECIFIC GRAVITY 1.012; UROBILINOGEN,URINE NEGATIVE mg/dL (<2.0)
--- NOTE | 2020-07-21 22:26 | PDOC H&P ---
History of Present Illness Admission Date/PCP: SANIYA TUTTLE MD Patient complains of: Shortness of breath History of Present Illness: JAVIER MARTINEZ is a 79 year old male with a history of COPD on 3 L intranasal oxygen at home iron deficiency anemia, recent history of GI bleed for which he was scheduled to have outpatient endoscopy on his last discharge now is brought in by EMS for adult onset worsening of shortness of breath. Patient has nebulizer at home and despite using multiple times he symptoms fail to improve. He was given breathing treatment, Solu-Medrol and magnesium during transfer by EMS and he reports interval improvement in his symptoms. He was recently diagnosed for COVID-19 on 07/16/2020 when he was screened by her to undergoing e ndoscopy and he was apparently doing well since discharge until his shortness of breath got worse today. He has a chronic cough and has not noticed worsening of his cough. He denies fever, chills, body aches, nausea, vomiting or diarrhea. He states that he has not noticed bright red bleeding per rectum or melena since discharge from hospital and denies any dizziness/lightheadedness. Past Medical History Cardiac Medical History: Reports: Congestive Heart Failure - Ejection fraction 40 to 45% a few weeks ago Pulmonary Medical History: Reports: Chronic Obstructive Pulmonary Disease (COPD) Psychiatric Medical History: Denies: Depression Hematology: Reports: Anemia Past Surgical History Past Surgical History: Denies: Cardiac Catheterization, Coronary Artery Bypass Graft Social History Information Source: Patient Lives with: Alone Smoking Status: Former Smoker Electronic Cigarette use?: No Frequency of Alcohol Use: None Hx Recreational Drug Use: No Drugs: None Hx Prescription Drug Abuse: No - Advance Directive Resuscitation Status: Full Code Family History Family History: None Parental Family History Reviewed: Yes Children Family History Reviewed: Yes Sibling(s) Family History Reviewed.: Yes Medication/Allergy Home Medications: Fluticasone/Salmeterol [Advair 250-50 Diskus 14 Dose/Diskus] 1 puff IH Q12 06/27/20 Ipratropium/Albuterol Sulfate [Duoneb 3 ml Ampul] 1 vial NEB RTQ6 06/27/20 Simvastatin [Zocor 40 mg Tablet] 40 mg PO QPM 06/27/20 Tiotropium [place] [Spiriva Handihaler 5 Cap/Kit (18 Mcg/Cap)] 1 cap IH DAILY 06/27/20 Ferrous Sulfate [Feosol 325 mg Tablet] 325 mg PO ASDIR PRN #30 tablet 07/04/20 Furosemide [Lasix 20 mg Tablet] 20 mg PO DAILY #30 tablet 07/04/20 Lisinopril [Prinivil 5 mg Tablet] 2.5 mg PO DAILY #30 tablet 07/04/20 Pantoprazole Sodium [Protonix [address] Tablet] 40 mg PO BID #60 tablet.dr 07/16/20 Sucralfate [Carafate 1 gm Tablet] 1 gm PO ACHS #120 tablet 07/16/20 Allergies/Adverse Reactions: No Known Allergies Allergy (Verified 07/21/20 15:42) Review of Systems Constitutional: ABSENT: chills, fever(s), headache(s), weight gain, weight loss Eyes: ABSENT: visual disturbances Ears: ABSENT: hearing changes Nose, Mouth, and Throat: ABSENT: headache(s), mouth pain, sore throat Cardiovascular: ABSENT: chest pain, edema, orthropnea, palpitations Respiratory: PRESENT: as per HPI Gastrointestinal: PRESENT: as per HPI Genitourinary: ABSENT: dysuria, hematuria Musculoskeletal: ABSENT: joint swelling Integumentary: ABSENT: rash, wounds Neurological: ABSENT: abnormal gait, abnormal speech, confusion, dizziness, focal weakness, syncope Psychiatric: ABSENT: anxiety, depression, homidical ideation, suicidal ideation Endocrine: ABSENT: cold intolerance, heat intolerance, polydipsia, polyuria Hematologic/Lymphatic: ABSENT: easy bleeding, easy bruising Physical Exam Vital Signs: Temp Pulse Resp BP Pulse Ox 97.6 F 30 H 90/54 L 92 07/21/20 15:08 07/21/20 18:01 07/21/20 18:00 07/21/20 18:01 Intake & Output 07/20/20 07/21/20 07/22/20 06:59 06:59 06:59 Weight 42 kg Additional comments: GENERAL APPEARANCE: Alert and oriented x3, on 4 L intranasal oxygen HEENT: Normocephalic and atraumatic. No scleral icterus. Moist oral mucosa NECK: Supple. No lymphadenopathy or tenderness. No JVD CHEST: Symmetric. Nontender to palpation. LUNGS: Relatively decreased air entry bilaterally with reduced air movement. Faint wheezes bilaterally. No crackles appreciated HEART: Regular rate and rhythm with normal S1 and S2. No murmurs, gallops, or rubs. ABDOMEN: Flat, soft, active bowel sounds, no direct or rebound tenderness. No organomegaly detected. EXTREMITIES: No cyanosis, clubbing, or edema. MUSCULOSKELETAL: No deformity, atrophy or swelling noted PSYCHIATRIC: Recent and remote memory is intact. Appropriate mood and affect. SKIN: Warm, dry, and well perfused. No lesions or rashes are noted. NEUROLOGIC: No focal sensory or motor deficits are noted. Results Laboratory Results: 07/21/20 16:15 07/21/20 16:15 07/21/20 07/21/20 07/21/20 16:15 16:15 17:42 WBC 5.4 RBC 3.24 L Hgb 9.0 L Hct 27.9 L MCV 86 D MCH 27.7 MCHC 32.2 RDW 28.7 H Plt Count 157 Seg Neutrophils % 83.0 H VBG pH 7.31 VBG pCO2 76.7 H* VBG HCO3 37.7 H VBG Base Excess 9.6 Sodium 139.3 Potassium 3.7 Chloride 94 L Carbon Dioxide 40 H* Anion Gap 5 BUN 41 H Creatinine 0.98 Est GFR ( Amer) > 60 Glucose 101 Calcium 8.1 L Total Bilirubin 0.6 AST 40 Alkaline Phosphatase 82 Total Protein 5.7 L Albumin 3.0 L 07/21/20 07/21/20 07/21/20 16:15 16:15 16:15 Creatine Kinase < 20 L CK-MB (CK-2) 0.88 Troponin I 0.020 NT-Pro-B Natriuret Pep 842 H Impressions: Chest X-Ray 07/21/20 15:37 IMPRESSION: Severe emphysematous change without evidence of acute cardiopulmonary process. Assessment and Plan - Diagnosis (1) COPD exacerbation Is this a current diagnosis for this admission?: Yes Plan: Patient has advanced COPD on intranasal oxygen at home Initial symptoms improved after IV steroid, breathing treatment and magnesium administration Less likely to be due to COVID-19 pneumonia has patient has no fever, body aches or GI symptoms and he was having diffuse wheezing and has responded to breathing treatment Chest x-ray showed severe emphysematous changes with no acute cardiopulmonary findings Continue Solu-Medrol 40 mg IV twice daily Breathing treatment with DuoNeb's every 4 hourly as needed Placed him on BiPAP due to hypercapnia Repeat venous blood gas in the a.m. (2) Acute on chronic respiratory failure with hypoxia and hypercapnia Is this a current diagnosis for this admission?: Yes Plan: Likely due to COPD exacerbation Venous blood gas showed a pH of 7.31 with PCO2 of 76 Continue steroid, breathing treatment Placed on BiPAP Closely monitor respiratory status (3) COVID-19 virus detected Is this a current diagnosis for this admission?: Yes Plan: Patient was diagnosed with COVID-19 on 07/16 Now presented with worsening shortness of breath symptoms have responded well to breathing treatment and steroid Currently saturating mid 90s on his home oxygen level, denies any fever, chills, GI symptoms Continue steroid treatment for COPD exacerbation Placed him on zinc, vitamin C, vitamin D (4) Iron deficiency anemia due to chronic blood loss Is this a current diagnosis for this admission?: Yes Plan: H&H has been stable since discharge from hospital Hemoglobin on this encounter 7.0 Patient denies any subsequent gross signs of GI bleed Continue monitoring CBC Continue ferrous sulfate Follow-up with outpatient GI for endoscopy (5) Pulmonary hypertension, mild Is this a current diagnosis for this admission?: Yes Plan: Continue intranasal oxygen (6) Systolic CHF, chronic Is this a current diagnosis for this admission?: Yes Plan: Currently not in acute exacerbation Continue home medications Monitor I/O's, daily weight and fluid restriction (7) Cachexia Is this a current diagnosis for this admission?: Yes Plan: Likely due to advanced COPD BMI on this encounter was 14.9 Consider nutrition consult for dietary supplementation - Time Time Spent with patient: 35 or more minutes Total Critical Time (Minutes): 45 Medications reviewed and adjusted accordingly: Yes Anticipated Discharge Disposition: Home, Self Care Anticipated Discharge Timeframe: within 48 hours - Inpatient Certification Based on my medical assessment, after consideration of the patient's comorbidities, presenting symptoms, or acuity I expect that the services needed warrant INPATIENT care.: Yes I certify that my determination is in accordance with my understanding of Medicare's requirements for reasonable and necessary INPATIENT services [42 CFR 412.3e].: Yes Medical Necessity: Failure to Improve With Outpatient Therapy, Need Close Monitoring Due to Risk of Patient Decompensation, Risk of Complication if Not Cared For in Hospital Post Hospital Care: D/C or Transfer Summary
[2020-07-21] MEDS ORDERED: METHYLPREDNISOLONE INJ 40 MG/1 ML SDV IV SCH (22:30)
[2020-07-21 22:53] LABS: C-REACTIVE PROTEIN 56.2 mg/L (<10.0)
[2020-07-21] MEDS ORDERED: METHYLPREDNISOLONE INJ 40 MG/1 ML SDV IV ONE (23:00)
[2020-07-22] MEDS: PANTOPRAZOLE SODIUM 40 MG TABLET.DR PO SCH ×2 (05:06→16:39)
[2020-07-22 07:53] LABS: HEMATOCRIT 24.6 % (37.9-51.0); HEMOGLOBIN 8.1 g/dL (13.5-17.0); MEAN CORPUSCULAR HEMOGLOBIN 27.8 pg (27.0-33.4); MEAN CORPUSCULAR HGB CONC 32.8 g/dL (32.0-36.0); MEAN CORPUSCULAR VOLUME 85 fl (80-97); PLATELET COUNT 136 10^3/uL (150-450)
[2020-07-22 07:56] LABS: ALBUMIN 2.7 g/dL (3.5-5.0); ALKALINE PHOSPHATASE 57 U/L (38-126); ASPARTATE AMINO TRANSFERASE 35 U/L (17-59); BILIRUBIN,DIRECT 0.2 mg/dL (0.0-0.4); BILIRUBIN,TOTAL 0.6 mg/dL (0.2-1.3); BLOOD UREA NITROGEN 39 mg/dL (7-20); CALCIUM 8.2 mg/dL (8.4-10.2); CHLORIDE 99 mmol/L (98-107); GLUCOSE 128 mg/dL (75-110); POTASSIUM 4.5 mmol/L (3.6-5.0); TOTAL PROTEIN 5.5 g/dL (6.3-8.2)
[2020-07-22 08:02] LABS: ANION GAP 5 (5-19); CARBON DIOXIDE 37 mmol/L (22-30)
[2020-07-22 08:27] LABS: VENOUS BLOOD BASE EXCESS 2.9 mmol/L; VENOUS BLOOD HCO3 29.6 mmol/L (20-32); VENOUS BLOOD PCO2 56.9 mmHg (35-63); VENOUS BLOOD PH 7.33 (7.30-7.42)
[2020-07-22 08:29] LABS: ABSOLUTE LYMPHOCYTES# (MANUAL) 0.1 10^3/uL (0.5-4.7); BAND NEUTROPHILS % (MANUAL) 2 % (3-5); BASOPHILS % (MANUAL) 0 % (0-2); EOSINOPHILS % (MANUAL) 0 % (0-6); LYMPHOCYTES % (MANUAL) 4 % (13-45); MONOCYTES % (MANUAL) 0 % (3-13); SEGMENTED NEUTROPHILS % (MAN) 94 % (42-78); TOTAL CELLS COUNTED 50
[2020-07-22 08:33] LABS: ANISOCYTOSIS 4+; OVALOCYTES 1+; TEAR DROP CELLS SLIGHT
[2020-07-22 08:34] LABS: PLATELET COMMENT DECREASED
[2020-07-22] MEDS: METHYLPREDNISOLONE INJ 40 MG/1 ML SDV IV SCH (10:18)
[2020-07-22] MEDS: ASCORBIC ACID 500 MG TABLET PO SCH ×2 (10:23→18:27)
[2020-07-22] MEDS: ASPIRIN 81 MG TABLET, ENT COATED PO SCH (10:23)
[2020-07-22] MEDS: FUROSEMIDE 20 MG TABLET PO SCH (10:23)
[2020-07-22] MEDS: CHOLECALCIFEROL (D3) 1,000 UNIT (25 MCG) TABLET PO SCH (10:24)
[2020-07-22] MEDS: ZINC SULFATE 220 MG CAPSULE PO SCH (10:25)
[2020-07-22 10:53] LABS: HEMATOCRIT 24.6 % (37.9-51.0); MEAN CORPUSCULAR HEMOGLOBIN 26.9 pg (27.0-33.4); MEAN CORPUSCULAR HGB CONC 31.2 g/dL (32.0-36.0); MEAN CORPUSCULAR VOLUME 87 fl (80-97); PLATELET COUNT 141 10^3/uL (150-450); RED BLOOD COUNT 2.85 10^6/uL (4.35-5.55); RED CELL DISTRIBUTION WIDTH 28.1 % (11.5-14.0); WHITE BLOOD COUNT 2.5 10^3/uL (4.0-10.5)
[2020-07-22 11:25] LABS: HEMOGLOBIN 7.7 g/dL (13.5-17.0)
[2020-07-22 11:26] LABS: ABSOLUTE LYMPHOCYTES# (MANUAL) 0.1 10^3/uL (0.5-4.7); ABSOLUTE MONOCYTES # (MANUAL) 0.1 10^3/uL (0.1-1.4); ANISOCYTOSIS 4+; BASOPHILS % (MANUAL) 0 % (0-2); EOSINOPHILS % (MANUAL) 0 % (0-6); HYPOCHROMASIA SLIGHT; LYMPHOCYTES % (MANUAL) 5 % (13-45); MONOCYTES % (MANUAL) 3 % (3-13); OVALOCYTES SLIGHT; PLATELET COMMENT ADEQUATE; SEGMENTED NEUTROPHILS % (MAN) 92 % (42-78); TOTAL CELLS COUNTED 100
[2020-07-22] MEDS: IPRATROPIUM/ALBUTEROL 0.5-2.5 MG/3 ML AMPUL NEB SCH ×2 (14:49→21:06)
[2020-07-22] MEDS: SUCRALFATE 1 GM TABLET PO SCH ×2 (16:39→22:33)
--- NOTE | 2020-07-22 17:21 | EKG REPORT ---
SEVERITY:- ABNORMAL ECG - SINUS RHYTHM PROBABLE LEFT ATRIAL ABNORMALITY INCOMPLETE RIGHT BUNDLE BRANCH BLOCK : Confirmed by: Xena Diehl MD 22-Jul-2020 17:20:30
--- NOTE | 2020-07-22 18:35 | PDOC PROGRESS REPORT ---
Subjective Date:: 07/22/20 Subjective:: Patient denies having any bloody stools but does endorse some history of melena. Shortness of breath is improved but still coughing. Primary nurse in the ER expressed concerns of him having difficulty clearing his cough. Reason For Visit: COPD EXACERBATION CHRONIC HYPOXIC AND HYPERCAPNIC Physical Exam Vital Signs: Temp Pulse Resp BP Pulse Ox 97.9 F 80 26 H 114/56 L 100 07/22/20 12:44 07/22/20 14:49 07/22/20 18:01 07/22/20 18:01 07/22/20 18:01 Intake & Output 07/21/20 07/22/20 07/23/20 06:59 06:59 06:59 Intake Total 740 240 Output Total 200 Balance 540 240 Weight 42 kg 40.5 kg General appearance: PRESENT: no acute distress, cooperative Neck exam: ABSENT: JVD Respiratory exam: PRESENT: clear to auscultation cordell, decreased breath sounds, prolonged expiratory phas, symmetrical, unlabored, other - pursed lip breathing. ABSENT: tachypnea, wheezes Cardiovascular exam: PRESENT: RRR, +S1, +S2. ABSENT: tachycardia GI/Abdominal exam: PRESENT: soft. ABSENT: rebound, rigid, tenderness Extremities exam: ABSENT: calf tenderness, pedal edema Musculoskeletal exam: PRESENT: ambulatory Neurological exam: PRESENT: alert, awake, oriented to person, oriented to place, oriented to time, oriented to situation Psychiatric exam: ABSENT: agitated, anxious Results Laboratory Results: 07/22/20 10:05 07/22/20 07:00 07/21/20 07/21/20 07/21/20 16:15 17:42 22:12 WBC RBC Hgb Hct MCV MCH MCHC RDW Plt Count Seg Neutrophils % VBG pH 7.31 VBG pCO2 76.7 H* VBG HCO3 37.7 H VBG Base Excess 9.6 Sodium Potassium Chloride Carbon Dioxide Anion Gap BUN Creatinine Est GFR ( Amer) Glucose Calcium Ferritin 139.00 Total Bilirubin AST Alkaline Phosphatase C-Reactive Protein 56.2 H Total Protein Albumin Urine Color YELLOW Urine Appearance SLIGHTLY-CLOUDY Urine pH 5.0 Ur Specific [place] 1.012 Urine Protein NEGATIVE Urine Glucose (UA) NEGATIVE Urine Ketones NEGATIVE Urine Blood NEGATIVE Urine Nitrite NEGATIVE Ur Leukocyte Esterase TRACE H Urine WBC (Auto) 2 Urine RBC (Auto) 0 07/22/20 07/22/20 07/22/20 07:00 07:00 08:07 WBC 1.7 L D RBC 2.90 L Hgb 8.1 L Hct 24.6 L MCV 85 MCH 27.8 MCHC 32.8 RDW 28.0 H Plt Count 136 L Seg Neutrophils % Not Reportable VBG pH 7.33 VBG pCO2 56.9 VBG HCO3 29.6 VBG Base Excess 2.9 Sodium 140.9 Potassium 4.5 Chloride 99 Carbon Dioxide 37 H Anion Gap 5 BUN 39 H Creatinine 0.79 Est GFR ( Amer) > 60 Glucose 128 H Calcium 8.2 L Ferritin Total Bilirubin 0.6 AST 35 Alkaline Phosphatase 57 C-Reactive Protein Total Protein 5.5 L Albumin 2.7 L Urine Color Urine Appearance Urine pH Ur Specific [place] Urine Protein Urine Glucose (UA) Urine Ketones Urine Blood Urine Nitrite Ur Leukocyte Esterase Urine WBC (Auto) Urine RBC (Auto) 07/22/20 10:05 WBC 2.5 L RBC 2.85 L Hgb 7.7 L Hct 24.6 L MCV 87 MCH 26.9 L MCHC 31.2 L RDW 28.1 H Plt Count 141 L Seg Neutrophils % Not Reportable VBG pH VBG pCO2 VBG HCO3 VBG Base Excess Sodium Potassium Chloride Carbon Dioxide Anion Gap BUN Creatinine Est GFR ( Amer) Glucose Calcium Ferritin Total Bilirubin AST Alkaline Phosphatase C-Reactive Protein Total Protein Albumin Urine Color Urine Appearance Urine pH Ur Specific [place] Urine Protein Urine Glucose (UA) Urine Ketones Urine Blood Urine Nitrite Ur Leukocyte Esterase Urine WBC (Auto) Urine RBC (Auto) 07/21/20 07/21/20 07/21/20 16:15 16:15 16:15 Creatine Kinase < 20 L CK-MB (CK-2) 0.88 Troponin I 0.020 NT-Pro-B Natriuret Pep 842 H 07/21/20 16:15 Creatine Kinase Cancelled CK-MB (CK-2) Troponin I NT-Pro-B Natriuret Pep Impressions: Chest X-Ray 07/21/20 15:37 IMPRESSION: Severe emphysematous change without evidence of acute cardiopulmonary process. Assessment and Plan - Diagnosis (1) COPD exacerbation Is this a current diagnosis for this admission?: Yes (2) COVID-19 virus detected Is this a current diagnosis for this admission?: Yes (3) Cachexia Is this a current diagnosis for this admission?: Yes (4) Iron deficiency anemia due to chronic blood loss Is this a current diagnosis for this admission?: Yes (5) Pulmonary hypertension, mild Is this a current diagnosis for this admission?: Yes (6) Systolic CHF, chronic Is this a current diagnosis for this admission?: Yes - Plan Summary Summary: Continue treatment for patient's COPD exacerbation. Frequent bronchodilators, IV steroids, pulmonary toileting. We will put on fluticasone inhaler. It does seem that his COPD is acting up more so than his actual COVID-19 infection. His oxygenation is not bad. He does have CO2 retention so will sleep without BiPAP tonight. Continue Lasix. Monitor H&H closely. - Time Time Spent with patient: 15-24 minutes Anticipated Discharge Disposition: Home, Self Care Anticipated Discharge Timeframe: within 48 hours
[2020-07-22] MEDS: FLUTICASONE PROPIONATE HFA 110 MCG/PUFF 12 GM MDI IH SCH (23:05)
[2020-07-23] MEDS: METHYLPREDNISOLONE INJ 40 MG/1 ML SDV IV SCH ×3 (01:24→21:19)
[2020-07-23] MEDS: IPRATROPIUM/ALBUTEROL 0.5-2.5 MG/3 ML AMPUL NEB SCH ×4 (02:12→21:07)
[2020-07-23] MEDS: PANTOPRAZOLE SODIUM 40 MG TABLET.DR PO SCH ×2 (05:21→16:21)
[2020-07-23 06:17] LABS: HEMATOCRIT 22.4 % (37.9-51.0); MEAN CORPUSCULAR HEMOGLOBIN 27.1 pg (27.0-33.4); MEAN CORPUSCULAR VOLUME 85 fl (80-97); PLATELET COUNT 163 10^3/uL (150-450); RED BLOOD COUNT 2.65 10^6/uL (4.35-5.55); RED CELL DISTRIBUTION WIDTH 27.6 % (11.5-14.0)
[2020-07-23 06:31] LABS: ALBUMIN 2.4 g/dL (3.5-5.0); ALKALINE PHOSPHATASE 59 U/L (38-126); ASPARTATE AMINO TRANSFERASE 32 U/L (17-59); BILIRUBIN,DIRECT 0.2 mg/dL (0.0-0.4); BILIRUBIN,TOTAL 0.4 mg/dL (0.2-1.3); BLOOD UREA NITROGEN 52 mg/dL (7-20); CALCIUM 7.9 mg/dL (8.4-10.2); GLUCOSE 118 mg/dL (75-110); POTASSIUM 4.3 mmol/L (3.6-5.0); TOTAL PROTEIN 4.8 g/dL (6.3-8.2)
[2020-07-23 06:38] LABS: CARBON DIOXIDE 39 mmol/L (22-30); CHLORIDE 98 mmol/L (98-107)
[2020-07-23 06:40] LABS: HEMOGLOBIN 7.2 g/dL (13.5-17.0)
[2020-07-23 06:43] LABS: ANION GAP 1 (5-19)
[2020-07-23 07:29] LABS: ABSOLUTE LYMPHOCYTES# (MANUAL) 0.2 10^3/uL (0.5-4.7); ABSOLUTE MONOCYTES # (MANUAL) 0.3 10^3/uL (0.1-1.4); BAND NEUTROPHILS % (MANUAL) 1 % (3-5); BASOPHILS % (MANUAL) 0 % (0-2); EOSINOPHILS % (MANUAL) 0 % (0-6); LYMPHOCYTES % (MANUAL) 1 % (13-45); MONOCYTES % (MANUAL) 3 % (3-13); SEGMENTED NEUTROPHILS % (MAN) 94 % (42-78); TOTAL CELLS COUNTED 100
[2020-07-23 07:31] LABS: ANISOCYTOSIS 3+; HYPOCHROMASIA SLIGHT; OVALOCYTES SLIGHT; PLATELET COMMENT ADEQUATE
[2020-07-23] MEDS: SUCRALFATE 1 GM TABLET PO SCH ×4 (09:33→21:19)
[2020-07-23] MEDS ORDERED: LISINOPRIL 5 MG TABLET PO SCH (10:00)
[2020-07-23] MEDS: ASCORBIC ACID 500 MG TABLET PO SCH ×2 (10:35→17:14)
[2020-07-23] MEDS: ZINC SULFATE 220 MG CAPSULE PO SCH (10:35)
[2020-07-23] MEDS: FUROSEMIDE 20 MG TABLET PO SCH (10:35)
[2020-07-23] MEDS: ROFLUMILAST 500 MCG TABLET PO SCH (10:36)
[2020-07-23] MEDS: CHOLECALCIFEROL (D3) 1,000 UNIT (25 MCG) TABLET PO SCH (10:36)
[2020-07-23] MEDS: ASPIRIN 81 MG TABLET, ENT COATED PO SCH (10:44)
[2020-07-23] MEDS: FLUTICASONE PROPIONATE HFA 110 MCG/PUFF 12 GM MDI IH SCH ×2 (10:53→21:20)
--- NOTE | 2020-07-23 13:12 | PDOC PROGRESS REPORT ---
Subjective Date:: 07/23/20 Subjective:: Patient says that his BM is now coming back to regular color. Melena is resolvin g. Reason For Visit: COPD EXACERBATION CHRONIC HYPOXIC AND HYPERCAPNIC Physical Exam Vital Signs: Temp Pulse Resp BP Pulse Ox 97.6 F 82 20 126/60 H 95 07/23/20 12:35 07/23/20 12:35 07/23/20 12:35 07/23/20 12:35 07/23/20 12:35 Intake & Output 07/22/20 07/23/20 07/24/20 06:59 06:59 06:59 Intake Total 740 462 0 Output Total 200 425 Balance 540 37 0 Weight 42 kg 41.6 kg General appearance: PRESENT: no acute distress, cooperative Neck exam: ABSENT: JVD Respiratory exam: PRESENT: decreased breath sounds, prolonged expiratory phas, symmetrical, unlabored, other - pursed lip breathing. ABSENT: accessory muscle use, retraction, tachypnea, wheezes Cardiovascular exam: PRESENT: RRR, +S1, +S2. ABSENT: tachycardia GI/Abdominal exam: PRESENT: soft. ABSENT: rebound, rigid, tenderness Neurological exam: PRESENT: alert, awake, oriented to person, oriented to place, oriented to time Results Laboratory Results: 07/23/20 05:09 07/23/20 05:09 07/23/20 07/23/20 07/23/20 05:09 05:09 08:10 WBC 10.0 D RBC 2.65 L Hgb 7.2 L Hct 22.4 L MCV 85 MCH 27.1 MCHC 32.0 RDW 27.6 H Plt Count 163 Seg Neutrophils % Not Reportable Sodium 138.4 Potassium 4.3 Chloride 98 Carbon Dioxide 39 H Anion Gap 1 L BUN 52 H Creatinine 0.89 Est GFR ( Amer) > 60 Glucose 118 H Calcium 7.9 L Total Bilirubin 0.4 AST 32 Alkaline Phosphatase 59 Total Protein 4.8 L Albumin 2.4 L Blood Type O POSITIVE Antibody Screen NEGATIVE 07/21/20 07/21/20 07/21/20 16:15 16:15 16:15 Creatine Kinase < 20 L CK-MB (CK-2) 0.88 Troponin I 0.020 NT-Pro-B Natriuret Pep 842 H 07/21/20 16:15 Creatine Kinase Cancelled CK-MB (CK-2) Troponin I NT-Pro-B Natriuret Pep Impressions: Chest X-Ray 07/21/20 15:37 IMPRESSION: Severe emphysematous change without evidence of acute cardiopulmonary process. Assessment and Plan - Diagnosis (1) COPD exacerbation Is this a current diagnosis for this admission?: Yes Plan: Patient has advanced centrilobular emphysema with chronic hypoxia on 3 L nasal cannula at baseline. Currently his exacerbation is improving. We will continue duo nebs and Solu-Medrol. Continue Roflumilast (2) Iron deficiency anemia due to chronic blood loss Is this a current diagnosis for this admission?: Yes Plan: Complains of black stools. He is also on iron which will discolor stool. However his hemoglobin is downtrending. He was ordered a total of blood overnight after his h/h came back at 7.2. He was planned for an EGD on his last admission but ended up testing positive for Covid and as such was deferred to outpatient. In light of his current continued downtrend of hemoglobin, I will repeat a rapid Covid and if negative will consult surgery or GI for an endoscopy. Continue Carafate and Protonix (3) COVID-19 virus detected Is this a current diagnosis for this admission?: Yes Plan: He is not doing bad in regards to this. I will monitor him and continue vitamin and zinc supplements. 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 Encourage adequate nutrition. (5) Pulmonary hypertension, mild Is this a current diagnosis for this admission?: Yes (6) Systolic CHF, chronic Is this a current diagnosis for this admission?: Yes (7) Advanced care planning/counseling discussion Is this a current diagnosis for this admission?: Yes Plan: We discussed regarding his advanced COPD and current medical conditions. Is open to endoscopy. He wants to be full code but in the event that he ends up on a ventilator, he does not want to remain on the ventilator for more than 30 days. - Time Time Spent with patient: 15-24 minutes Anticipated Discharge Disposition: Home, Self Care Anticipated Discharge Timeframe: within 48 hours
[2020-07-23] MEDS: SIMVASTATIN 40 MG TABLET PO SCH (17:14)
[2020-07-23 18:20] LABS: HEMATOCRIT 31.5 % (37.9-51.0); MEAN CORPUSCULAR HEMOGLOBIN 27.6 pg (27.0-33.4); MEAN CORPUSCULAR VOLUME 86 fl (80-97); PLATELET COUNT 202 10^3/uL (150-450); RED BLOOD COUNT 3.64 10^6/uL (4.35-5.55); RED CELL DISTRIBUTION WIDTH 23.6 % (11.5-14.0); WHITE BLOOD COUNT 15.5 10^3/uL (4.0-10.5)
[2020-07-23 18:38] LABS: HEMOGLOBIN 10.1 g/dL (13.5-17.0)
[2020-07-23 18:40] LABS: ABSOLUTE LYMPHOCYTES# (MANUAL) 0.2 10^3/uL (0.5-4.7); ABSOLUTE MONOCYTES # (MANUAL) 0.2 10^3/uL (0.1-1.4); BASOPHILS % (MANUAL) 0 % (0-2); EOSINOPHILS % (MANUAL) 0 % (0-6); LYMPHOCYTES % (MANUAL) 1 % (13-45); MONOCYTES % (MANUAL) 1 % (3-13); SEGMENTED NEUTROPHILS % (MAN) 98 % (42-78); TOTAL CELLS COUNTED 100
[2020-07-23 18:41] LABS: ANISOCYTOSIS 3+; OVALOCYTES SLIGHT; PLATELET COMMENT ADEQUATE
[2020-07-24] MEDS: IPRATROPIUM/ALBUTEROL 0.5-2.5 MG/3 ML AMPUL NEB SCH ×4 (02:08→20:57)
[2020-07-24] MEDS: FLUTICASONE PROPIONATE HFA 110 MCG/PUFF 12 GM MDI IH SCH ×3 (02:28→22:31)
[2020-07-24] MEDS: PANTOPRAZOLE SODIUM 40 MG TABLET.DR PO SCH ×2 (05:32→17:10)
[2020-07-24 05:36] LABS: HEMATOCRIT 26.7 % (37.9-51.0); HEMOGLOBIN 8.7 g/dL (13.5-17.0); MEAN CORPUSCULAR HEMOGLOBIN 28.3 pg (27.0-33.4); MEAN CORPUSCULAR HGB CONC 32.5 g/dL (32.0-36.0); MEAN CORPUSCULAR VOLUME 87 fl (80-97); PLATELET COUNT 169 10^3/uL (150-450); RED BLOOD COUNT 3.07 10^6/uL (4.35-5.55); RED CELL DISTRIBUTION WIDTH 22.9 % (11.5-14.0); WHITE BLOOD COUNT 11.3 10^3/uL (4.0-10.5)
[2020-07-24 05:58] LABS: ALBUMIN 2.4 g/dL (3.5-5.0); ALKALINE PHOSPHATASE 61 U/L (38-126); ASPARTATE AMINO TRANSFERASE 39 U/L (17-59); BILIRUBIN,DIRECT 0.1 mg/dL (0.0-0.4); BILIRUBIN,TOTAL 0.4 mg/dL (0.2-1.3); BLOOD UREA NITROGEN 45 mg/dL (7-20); CARBON DIOXIDE 38 mmol/L (22-30); CHLORIDE 99 mmol/L (98-107); GLUCOSE 113 mg/dL (75-110); TOTAL PROTEIN 4.8 g/dL (6.3-8.2)
[2020-07-24 05:59] LABS: POTASSIUM 4.5 mmol/L (3.6-5.0)
[2020-07-24 06:00] LABS: ANION GAP 1 (5-19)
[2020-07-24] MEDS: ASPIRIN 81 MG TABLET, ENT COATED PO SCH (10:24)
[2020-07-24] MEDS: SUCRALFATE 1 GM TABLET PO SCH ×4 (10:24→22:22)
[2020-07-24] MEDS: CHOLECALCIFEROL (D3) 1,000 UNIT (25 MCG) TABLET PO SCH (10:24)
[2020-07-24] MEDS: ZINC SULFATE 220 MG CAPSULE PO SCH (10:24)
[2020-07-24] MEDS: ROFLUMILAST 500 MCG TABLET PO SCH (10:24)
[2020-07-24] MEDS: ASCORBIC ACID 500 MG TABLET PO SCH ×2 (10:24→17:08)
[2020-07-24] MEDS: METHYLPREDNISOLONE INJ 40 MG/1 ML SDV IV SCH (10:25)
[2020-07-24 12:55] LABS: WHITE BLOOD COUNT 1.7 10^3/uL (4.0-10.5)
--- NOTE | 2020-07-24 13:59 | PDOC PROGRESS REPORT ---
Subjective Date:: 07/24/20 Subjective:: Breathing is improving. Reason For Visit: COPD EXACERBATION CHRONIC HYPOXIC AND HYPERCAPNIC Physical Exam Vital Signs: Temp Pulse Resp BP Pulse Ox 98.4 F 71 18 115/57 L 96 07/24/20 11:54 07/24/20 13:30 07/24/20 13:30 07/24/20 11:54 07/24/20 13:30 Intake & Output 07/23/20 07/24/20 07/25/20 06:59 06:59 06:59 Intake Total 462 1600 720 Output Total 425 900 150 Balance 37 700 570 Weight 41.6 kg 41.8 kg General appearance: PRESENT: no acute distress, cooperative Respiratory exam: PRESENT: decreased breath sounds, prolonged expiratory phas, symmetrical, unlabored, other - pursed lip breathing. ABSENT: tachypnea, wheezes Cardiovascular exam: PRESENT: RRR, +S1, +S2. ABSENT: tachycardia GI/Abdominal exam: PRESENT: soft. ABSENT: tenderness Neurological exam: PRESENT: alert, awake, oriented to person, oriented to place, oriented to time Results Laboratory Results: 07/24/20 04:33 07/24/20 04:33 07/22/20 07/23/20 07/24/20 07:00 17:40 04:33 WBC 1.7 L D 15.5 H 11.3 H RBC 3.64 L 3.07 L Hgb 10.1 L D 8.7 L Hct 31.5 L 26.7 L MCV 86 87 MCH 27.6 28.3 MCHC 32.0 32.5 RDW 23.6 H 22.9 H Plt Count 202 169 Seg Neutrophils % Not Reportable Sodium Potassium Chloride Carbon Dioxide Anion Gap BUN Creatinine Est GFR ( Amer) Glucose Calcium Total Bilirubin AST Alkaline Phosphatase Total Protein Albumin 07/24/20 04:33 WBC RBC Hgb Hct MCV MCH MCHC RDW Plt Count Seg Neutrophils % Sodium 137.9 Potassium 4.5 Chloride 99 Carbon Dioxide 38 H Anion Gap 1 L BUN 45 H Creatinine 0.77 Est GFR ( Amer) > 60 Glucose 113 H Calcium 8.0 L Total Bilirubin 0.4 AST 39 Alkaline Phosphatase 61 Total Protein 4.8 L Albumin 2.4 L 07/21/20 07/21/20 07/21/20 16:15 16:15 16:15 Creatine Kinase < 20 L CK-MB (CK-2) 0.88 Troponin I 0.020 NT-Pro-B Natriuret Pep 842 H 07/21/20 16:15 Creatine Kinase Cancelled CK-MB (CK-2) Troponin I NT-Pro-B Natriuret Pep Impressions: Chest X-Ray 07/21/20 15:37 IMPRESSION: Severe emphysematous change without evidence of acute cardiopulmona ry process. Assessment and Plan - Diagnosis (1) COPD exacerbation Is this a current diagnosis for this admission?: Yes Plan: Patient has advanced centrilobular emphysema with chronic hypoxia on 3 L nasal cannula at baseline. Currently his exacerbation is improving. We did ambulate him today and he is better but not quite at his baseline just yet. We will continue duo nebs and switch Solu-Medrol to prednisone. Continue Roflumilast Palliative care consult placed to follow patient on discharge. I have discussed this with patient. Patient lives alone. (2) Iron deficiency anemia due to chronic blood loss Is this a current diagnosis for this admission?: Yes Plan: Complains of black stools. He is also on iron which will discolor stool. However his hemoglobin is downtrending. He was ordered a unit of blood overnight after his h/h came back at 7.2. He was planned for an EGD on his last admission but ended up testing positive for Covid and as such was deferred to outpatient. In light of his current continued downtrend of hemoglobin, I will repeat a rapid Covid and if negative will consult surgery or GI for an endoscopy. Continue Carafate and Protonix 07/24/2020 From my conversation with nurse yesterday, his bowel movements yesterday were not melanotic. Continue Carafate and Protonix. Continue iron supplements. Mild drop in H&H this morning as compared to yesterday which is expected following redistribution posttransfusion. Will monitor to see if H&H remains stable by tomorrow. (3) COVID-19 virus detected Is this a current diagnosis for this admission?: Yes Plan: Diagnosed incidentally during last admission. Still positive but this does not seem to be problem currently. 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 Encourage adequate nutrition. Palliative care consult upon d/c. (5) Pulmonary hypertension, mild Is this a current diagnosis for this admission?: Yes (6) Systolic CHF, chronic Is this a current diagnosis for this admission?: Yes - Time Time Spent with patient: Less than 15 minutes Anticipated Discharge Disposition: Home, Self Care Anticipated Discharge Timeframe: within 24 hours
[2020-07-24] MEDS: SIMVASTATIN 40 MG TABLET PO SCH (17:10)
[2020-07-25] MEDS: IPRATROPIUM/ALBUTEROL 0.5-2.5 MG/3 ML AMPUL NEB SCH ×4 (02:06→20:15)
[2020-07-25] MEDS: PANTOPRAZOLE SODIUM 40 MG TABLET.DR PO SCH ×2 (05:07→16:41)
[2020-07-25 05:35] LABS: HEMATOCRIT 24.8 % (37.9-51.0); MEAN CORPUSCULAR HEMOGLOBIN 28.2 pg (27.0-33.4); MEAN CORPUSCULAR HGB CONC 32.3 g/dL (32.0-36.0); MEAN CORPUSCULAR VOLUME 87 fl (80-97); PLATELET COUNT 166 10^3/uL (150-450); RED BLOOD COUNT 2.84 10^6/uL (4.35-5.55); RED CELL DISTRIBUTION WIDTH 22.7 % (11.5-14.0); WHITE BLOOD COUNT 8.6 10^3/uL (4.0-10.5)
[2020-07-25 05:58] LABS: ALBUMIN 2.3 g/dL (3.5-5.0); ALKALINE PHOSPHATASE 71 U/L (38-126); ASPARTATE AMINO TRANSFERASE 43 U/L (17-59); BILIRUBIN,DIRECT 0.2 mg/dL (0.0-0.4); BILIRUBIN,TOTAL 0.4 mg/dL (0.2-1.3); BLOOD UREA NITROGEN 45 mg/dL (7-20); CALCIUM 8.1 mg/dL (8.4-10.2); CHLORIDE 99 mmol/L (98-107); GLUCOSE 93 mg/dL (75-110); POTASSIUM 4.3 mmol/L (3.6-5.0); TOTAL PROTEIN 4.5 g/dL (6.3-8.2)
[2020-07-25 06:15] LABS: ANION GAP 2 (5-19); CARBON DIOXIDE 38 mmol/L (22-30)
[2020-07-25] MEDS: SUCRALFATE 1 GM TABLET PO SCH ×4 (08:51→21:55)
[2020-07-25] MEDS: CHOLECALCIFEROL (D3) 1,000 UNIT (25 MCG) TABLET PO SCH (10:36)
[2020-07-25] MEDS: ROFLUMILAST 500 MCG TABLET PO SCH (10:36)
[2020-07-25] MEDS: ZINC SULFATE 220 MG CAPSULE PO SCH (10:37)
[2020-07-25] MEDS: ASPIRIN 81 MG TABLET, ENT COATED PO SCH (10:37)
[2020-07-25] MEDS: ASCORBIC ACID 500 MG TABLET PO SCH ×2 (10:37→17:44)
[2020-07-25] MEDS: PREDNISONE 20 MG TABLET PO SCH (10:37)
[2020-07-25] MEDS: FERROUS SULFATE 325 MG TABLET PO SCH (10:37)
[2020-07-25] MEDS: FLUTICASONE PROPIONATE HFA 110 MCG/PUFF 12 GM MDI IH SCH ×2 (10:38→21:55)
[2020-07-25 11:19] LABS: PATH REVIEW PATHOLOGIST REVIEWED
--- NOTE | 2020-07-25 15:06 | PDOC PROGRESS REPORT ---
Subjective Date:: 07/25/20 Subjective:: No adverse events overnight. No new complaints. Stable on 4 L per nasal cannul a. When he is asleep his breathing looks more comfortable than it does when he is awake. He still got a very congested sounding cough. No fevers. Reason For Visit: COPD EXACERBATION CHRONIC HYPOXIC AND HYPERCAPNIC Physical Exam Vital Signs: Temp Pulse Resp BP Pulse Ox 98.4 F 77 18 122/73 97 07/25/20 12:11 07/25/20 14:19 07/25/20 14:19 07/25/20 12:11 07/25/20 14:19 Intake & Output 07/24/20 07/25/20 07/26/20 06:59 06:59 06:59 Intake Total 1600 1140 Output Total 900 375 Balance 700 765 Weight 41.8 kg 40.7 kg General appearance: PRESENT: no acute distress, cooperative Respiratory exam: PRESENT: decreased breath sounds, prolonged expiratory phas, symmetrical, unlabored, other - pursed lip breathing. ABSENT: tachypnea, wheezes Cardiovascular exam: PRESENT: RRR, +S1, +S2. ABSENT: tachycardia GI/Abdominal exam: PRESENT: soft. ABSENT: tenderness Neurological exam: PRESENT: alert, awake, oriented to person, oriented to place, oriented to time Results Laboratory Results: 07/25/20 05:02 07/25/20 05:02 07/25/20 07/25/20 05:02 05:02 WBC 8.6 RBC 2.84 L Hgb 8.0 L Hct 24.8 L MCV 87 MCH 28.2 MCHC 32.3 RDW 22.7 H Plt Count 166 Sodium 139.4 Potassium 4.3 Chloride 99 Carbon Dioxide 38 H Anion Gap 2 L BUN 45 H Creatinine 0.94 Est GFR ( Amer) > 60 Glucose 93 Calcium 8.1 L Total Bilirubin 0.4 AST 43 Alkaline Phosphatase 71 Total Protein 4.5 L Albumin 2.3 L 07/21/20 07/21/20 07/21/20 16:15 16:15 16:15 Creatine Kinase < 20 L CK-MB (CK-2) 0.88 Troponin I 0.020 NT-Pro-B Natriuret Pep 842 H 07/21/20 16:15 Creatine Kinase Cancelled CK-MB (CK-2) Troponin I NT-Pro-B Natriuret Pep Impressions: Chest X-Ray 07/21/20 15:37 IMPRESSION: Severe emphysematous change without evidence of acute cardiopulmonary process. Assessment and Plan - Diagnosis (1) Acute on chronic respiratory failure with hypoxia and hypercapnia Is this a current diagnosis for this admission?: Yes (2) COPD exacerbation Is this a current diagnosis for this admission?: Yes (3) COVID-19 virus detected Is this a current diagnosis for this admission?: Yes (4) Cachexia Is this a current diagnosis for this admission?: Yes (5) Iron deficiency anemia due to chronic blood loss Is this a current diagnosis for this admission?: Yes (6) Pulmonary hypertension, mild Is this a current diagnosis for this admission?: Yes (7) Systolic CHF, chronic Is this a current diagnosis for this admission?: Yes - Plan Summary Summary: Overall he looks surprisingly good considering his age and multiple severe comorbidities. Currently on 4 L, but his breathing still looks a little bit shaky. We will probably continue treatment and watch him for another day. If his breathing looks more stable, he can likely go home tomorrow. - Time Time Spent with patient: 15-24 minutes Anticipated Discharge Disposition: Home with Home Health Anticipated Discharge Timeframe: within 48 hours
[2020-07-25] MEDS: SIMVASTATIN 40 MG TABLET PO SCH (17:44)
[2020-07-26] MEDS: IPRATROPIUM/ALBUTEROL 0.5-2.5 MG/3 ML AMPUL NEB SCH ×4 (02:17→21:01)
[2020-07-26] MEDS: PANTOPRAZOLE SODIUM 40 MG TABLET.DR PO SCH ×2 (05:29→16:36)
[2020-07-26 06:37] LABS: ABSOLUTE LYMPHOCYTES (AUTO) 0.8 10^3/uL (0.5-4.7); ABSOLUTE MONOCYTES (AUTO) 0.6 10^3/uL (0.1-1.4); ABSOLUTE NEUT (AUTO) 5.9 10^3/uL (1.7-8.2); BASOPHILS % (AUTO) 0.1 % (0-2); EOSINOPHILS % (AUTO) 0.2 % (0-6); HEMATOCRIT 24.2 % (37.9-51.0); LYMPHOCYTES % (AUTO) 11.6 % (13-45); MEAN CORPUSCULAR HEMOGLOBIN 28.2 pg (27.0-33.4); MEAN CORPUSCULAR HGB CONC 32.2 g/dL (32.0-36.0); MEAN CORPUSCULAR VOLUME 88 fl (80-97); MONOCYTES % (AUTO) 7.7 % (3-13); PLATELET COUNT 158 10^3/uL (150-450); RED BLOOD COUNT 2.77 10^6/uL (4.35-5.55); RED CELL DISTRIBUTION WIDTH 20.4 % (11.5-14.0); SEGMENTED NEUTROPHILS % (AUTO) 80.4 % (42-78); TOTAL CELLS COUNTED % (AUTO) 100 %; WHITE BLOOD COUNT 7.3 10^3/uL (4.0-10.5)
[2020-07-26 06:50] LABS: ALBUMIN 2.3 g/dL (3.5-5.0); ALKALINE PHOSPHATASE 71 U/L (38-126); ASPARTATE AMINO TRANSFERASE 40 U/L (17-59); BILIRUBIN,DIRECT 0.1 mg/dL (0.0-0.4); BILIRUBIN,TOTAL 0.3 mg/dL (0.2-1.3); BLOOD UREA NITROGEN 41 mg/dL (7-20); CALCIUM 8.2 mg/dL (8.4-10.2); CHLORIDE 96 mmol/L (98-107); GLUCOSE 85 mg/dL (75-110); POTASSIUM 4.6 mmol/L (3.6-5.0); TOTAL PROTEIN 4.6 g/dL (6.3-8.2)
[2020-07-26 07:06] LABS: CARBON DIOXIDE 43 mmol/L (22-30)
[2020-07-26 07:08] LABS: HEMOGLOBIN 7.8 g/dL (13.5-17.0)
[2020-07-26 07:14] LABS: ANISOCYTOSIS 2+; OVALOCYTES SLIGHT; PLATELET COMMENT ADEQUATE; TEAR DROP CELLS SLIGHT
[2020-07-26 07:18] LABS: ANION GAP -2 (5-19)
[2020-07-26] MEDS: SUCRALFATE 1 GM TABLET PO SCH ×4 (09:12→21:48)
[2020-07-26] MEDS: FERROUS SULFATE 325 MG TABLET PO SCH (09:12)
[2020-07-26] MEDS: ASPIRIN 81 MG TABLET, ENT COATED PO SCH (09:12)
[2020-07-26] MEDS: PREDNISONE 20 MG TABLET PO SCH (09:12)
[2020-07-26] MEDS: ASCORBIC ACID 500 MG TABLET PO SCH ×2 (09:13→17:01)
[2020-07-26] MEDS: ROFLUMILAST 500 MCG TABLET PO SCH (09:13)
[2020-07-26] MEDS: ZINC SULFATE 220 MG CAPSULE PO SCH (09:13)
[2020-07-26] MEDS: CHOLECALCIFEROL (D3) 1,000 UNIT (25 MCG) TABLET PO SCH (09:14)
[2020-07-26] MEDS: FLUTICASONE PROPIONATE HFA 110 MCG/PUFF 12 GM MDI IH SCH ×2 (09:15→21:49)
--- NOTE | 2020-07-26 14:52 | PDOC DISCHARGE SUMMARY ---
Impression - Admit/DC Date/PCP Admission Date/Primary Care Provider: 07/21/20 22:21 SANIYA TUTTLE MD Discharge Date: 07/26/20 - Discharge Diagnosis (1) Acute on chronic respiratory failure with hypoxia and hypercapnia Is this a current diagnosis for this admission?: Yes (2) COPD exacerbation Is this a current diagnosis for this admission?: Yes (3) COVID-19 virus detected Is this a current diagnosis for this admission?: Yes (4) Cachexia Is this a current diagnosis for this admission?: Yes (5) Iron deficiency anemia due to chronic blood loss Is this a current diagnosis for this admission?: Yes (6) Pulmonary hypertension, mild Is this a current diagnosis for this admission?: Yes (7) Systolic CHF, chronic Is this a current diagnosis for this admission?: Yes - Assessment Summary: Overall he looks surprisingly good considering his age and multiple severe comorbidities. Currently on 4 L, but his breathing still looks a little bit shaky. We will probably continue treatment and watch him for another day. If his breathing looks more stable, he can likely go home tomorrow. - Additional Information Resuscitation Status: Full Code Discharge Diet: As Tolerated Discharge Activity: Activity As Tolerated, Balance Activity w/Rest, Supervised Activity Referrals: SANIYA TUTTLE MD [Primary Care Provider] - 08/07/20 2:45 pm (left message to call us 07-26-20 (13:20)) Prescriptions: Prednisone 10 mg PO DAILY #48 [email or web address] Home Medications: Fluticasone/Salmeterol [Advair 250-50 Diskus 14 Dose/Diskus] 1 puff IH Q12 06/27/20 Ipratropium/Albuterol Sulfate [Duoneb 3 ml Ampul] 1 vial NEB RTQ6HP PRN 06/27/20 Simvastatin [Zocor 40 mg Tablet] 40 mg PO QPM 06/27/20 Tiotropium [place] [Spiriva Handihaler 5 Cap/Kit (18 Mcg/Cap)] 1 cap IH DAILY 06/27/20 Furosemide [Lasix 20 mg Tablet] 20 mg PO DAILY #30 tablet 07/04/20 Pantoprazole Sodium [Protonix [address] Tablet] 40 mg PO BID #60 tablet.dr 07/16/20 Sucralfate [Carafate 1 gm Tablet] 1 gm PO ACHS #120 tablet 07/16/20 Albuterol Sulfate [Ventolin Hfa 8 gm Mdi] 2 puff IH Q4HP PRN 07/22/20 Lisinopril [Prinivil 5 mg Tablet] 5 mg PO DAILY 07/22/20 Roflumilast [Daliresp] 250 mcg PO DAILY 07/22/20 Ascorbic Acid [Vitamin C 500 mg Tablet] 500 mg PO BID tablet 07/26/20 Aspirin [Ecotrin 81 mg EC Tablet] 81 mg PO DAILY tabec 07/26/20 Cholecalciferol (Vitamin D3) [Vitamin D3 1000 Unit Tablet] 2,000 unit PO DAILY tablet 07/26/20 Ferrous Sulfate [Feosol 325 mg Tablet] 325 mg PO DAILY tablet 07/26/20 Prednisone 10 mg PO DAILY #48 tab.ds.pk 07/26/20 Zinc Sulfate [Zinc-220 Capsule] 220 mg PO DAILY capsule 07/26/20 History of Present Illiness History of Present Illness: JAVIER MARTINEZ is a 80 year old male with a history of COPD on 3 L intranasal oxygen at home iron deficiency anemia, recent history of GI bleed for which he was scheduled to have outpatient endoscopy on his last discharge now is brought in by EMS for adult onset worsening of shortness of breath. Patient has nebulizer at home and despite using multiple times he symptoms fail to improve. He was given breathing treatment, Solu-Medrol and magnesium during transfer by EMS and he reports interval improvement in his symptoms. He was recently diagnosed for COVID-19 on 07/16/2020 when he was screened by her to undergoing endoscopy and he was apparently doing well since discharge until his shortness of breath got worse today. He has a chronic cough and has not noticed worsening of his cough. He denies fever, chills, body aches, nausea, vomiting or diarrhea. He states that he has not noticed bright red bleeding per rectum or melena since discharge from hospital and denies any dizziness/lightheadedness. Hospital Course Hospital Course: His hemoglobin has remained stable, so he was treated for a COPD exacerbation. He had tested positive for coronavirus prior to endoscopy during his last hospitalization, but he fortunately has not manifested any severe symptoms of the disease, especially considering his baseline poor lung function. He is back on his usual level of home oxygen support and said he feels about like normal. He will complete a prednisone taper at home. He will continue his Protonix and Carafate as previously prescribed. I gave him a long list of vitamin supplements that I feel like he should probably be taking about now. His labs and examination were reassuring he was discharged in stable condition. Physical Exam Vital Signs: Temp Pulse Resp BP Pulse Ox 97.7 F 113 H 22 H 125/57 L 100 07/26/20 11:53 07/26/20 13:25 07/26/20 13:25 07/26/20 11:53 07/26/20 13:25 Intake & Output 07/25/20 07/26/20 07/27/20 06:59 06:59 06:59 Intake Total 1140 1365 475 Output Total 375 275 250 Balance 765 1090 225 Weight 40.7 kg 42.6 kg General appearance: PRESENT: no acute distress, cooperative Respiratory exam: PRESENT: decreased breath sounds, prolonged expiratory phas, symmetrical, unlabored, other - pursed lip breathing. ABSENT: tachypnea, wheezes Cardiovascular exam: PRESENT: RRR, +S1, +S2. ABSENT: tachycardia GI/Abdominal exam: PRESENT: soft. ABSENT: tenderness Neurological exam: PRESENT: alert, awake, oriented to person, oriented to place, oriented to time Results Laboratory Results: WBC 7.3 10^3/uL (4.0-10.5) 07/26/20 05:25 RBC 2.77 10^6/uL (4.35-5.55) L 07/26/20 05:25 Hgb 7.8 g/dL (13.5-17.0) L 07/26/20 05:25 Hct 24.2 % (37.9-51.0) L 07/26/20 05:25 MCV 88 fl (80-97) 07/26/20 05:25 MCH 28.2 pg (27.0-33.4) 07/26/20 05:25 MCHC 32.2 g/dL (32.0-36.0) 07/26/20 05:25 RDW 20.4 % (11.5-14.0) H 07/26/20 05:25 Plt Count 158 10^3/uL (150-450) 07/26/20 05:25 Lymph % (Auto) 11.6 % (13-45) L 07/26/20 05:25 [place] % (Auto) 7.7 % (3-13) 07/26/20 05:25 Eos % (Auto) 0.2 % (0-6) 07/26/20 05:25 Baso % (Auto) 0.1 % (0-2) 07/26/20 05:25 Absolute Neuts (auto) 5.9 10^3/uL (1.7-8.2) 07/26/20 05:25 Absolute Lymphs (auto) 0.8 10^3/uL (0.5-4.7) 07/26/20 05:25 Absolute Monos (auto) 0.6 10^3/uL (0.1-1.4) 07/26/20 05:25 Absolute Eos (auto) 0.0 10^3/uL (0.0-0.6) 07/26/20 05:25 Absolute Basos (auto) 0.0 10^3/uL (0.0-0.2) 07/26/20 05:25 Total Counted 100 07/23/20 17:40 Seg Neutrophils % 80.4 % (42-78) H 07/26/20 05:25 Seg Neuts % (Manual) 98 % (42-78) H 07/23/20 17:40 Band Neutrophils % 1 % (3-5) L 07/23/20 05:09 Lymphocytes % (Manual) 1 % (13-45) L 07/23/20 17:40 Atypical Lymphs % 1 % (0) 07/23/20 05:09 Monocytes % (Manual) 1 % (3-13) L 07/23/20 17:40 Eosinophils % (Manual) 0 % (0-6) 07/23/20 17:40 Basophils % (Manual) 0 % (0-2) 07/23/20 17:40 Abs Neuts (Manual) 15.2 10^3/uL (1.7-8.2) H 07/23/20 17:40 Abs Lymphs (Manual) 0.2 10^3/uL (0.5-4.7) L 07/23/20 17:40 Abs Monocytes (Manual) 0.2 10^3/uL (0.1-1.4) 07/23/20 17:40 Absolute Eos (Manual) 0.0 10^3/uL (0.0-0.6) 07/23/20 17:40 Abs Basophils (Manual) 0.0 10^3/uL (0.0-0.2) 07/23/20 17:40 Platelet Comment ADEQUATE 07/26/20 05:25 Hypochromasia SLIGHT 07/23/20 05:09 Poikilocytosis SLIGHT 07/21/20 16:15 Anisocytosis 2+ 07/26/20 05:25 Target Cells SLIGHT 07/21/20 16:15 Tear Drop Cells SLIGHT 07/26/20 05:25 Ovalocytes SLIGHT 07/26/20 05:25 D-Dimer 0.28 ug/mL (0.00-0.50) 07/21/20 22:55 VBG pH 7.33 (7.30-7.42) 07/22/20 08:07 VBG pCO2 56.9 mmHg (35-63) 07/22/20 08:07 VBG HCO3 29.6 mmol/L (20-32) 07/22/20 08:07 VBG Base Excess 2.9 mmol/L 07/22/20 08:07 Sodium 136.6 mmol/L (137-145) L 07/26/20 05:25 Potassium 4.6 mmol/L (3.6-5.0) 07/26/20 05:25 Chloride 96 mmol/L (98-107) L 07/26/20 05:25 Carbon Dioxide 43 mmol/L (22-30) H* 07/26/20 05:25 Anion Gap -2 (5-19) L 07/26/20 05:25 BUN 41 mg/dL (7-20) H 07/26/20 05:25 Creatinine 0.70 mg/dL (0.52-1.25) 07/26/20 05:25 Est GFR ( Amer) > 60 (>60) 07/26/20 05:25 Est GFR (MDRD) Non-Af > 60 (>60) 07/26/20 05:25 Glucose 85 mg/dL (75-110) 07/26/20 05:25 Calcium 8.2 mg/dL (8.4-10.2) L 07/26/20 05:25 Ferritin 139.00 ng/mL (17.9-464.0) 07/21/20 16:15 Total Bilirubin 0.3 mg/dL (0.2-1.3) 07/26/20 05:25 Direct Bilirubin 0.1 mg/dL (0.0-0.4) 07/26/20 05:25 Neonat Total Bilirubin Not Reportable 07/26/20 05:25 Neonat Direct Bilirubin Not Reportable 07/26/20 05:25 Neonat Indirect Bili Not Reportable 07/26/20 05:25 AST 40 U/L (17-59) 07/26/20 05:25 ALT 36 U/L (<50) 07/26/20 05:25 Alkaline Phosphatase 71 U/L (38-126) 07/26/20 05:25 Creatine Kinase < 20 U/L (55-170) L 07/21/20 16:15 Creatine Kinase Cancelled 07/21/20 16:15 CK-MB (CK-2) 0.88 ng/mL (<4.55) 07/21/20 16:15 Troponin I 0.020 ng/mL 07/21/20 16:15 C-Reactive Protein 56.2 mg/L (<10.0) H 07/21/20 16:15 NT-Pro-B Natriuret Pep 842 pg/mL (<450) H 07/21/20 16:15 Total Protein 4.6 g/dL (6.3-8.2) L 07/26/20 05:25 Albumin 2.3 g/dL (3.5-5.0) L 07/26/20 05:25 Urine Color YELLOW 07/21/20 22:12 Urine Appearance SLIGHTLY-CLOUDY 07/21/20 22:12 Urine pH 5.0 (5.0-9.0) 07/21/20 22:12 Ur Specific [place] 1.012 07/21/20 22:12 Urine Protein NEGATIVE mg/dL (NEGATIVE) 07/21/20 22:12 Urine Glucose (UA) NEGATIVE mg/dL (NEGATIVE) 07/21/20 22:12 Urine Ketones NEGATIVE mg/dL (NEGATIVE) 07/21/20 22:12 Urine Blood NEGATIVE (NEGATIVE) 07/21/20 22:12 Urine Nitrite NEGATIVE (NEGATIVE) 07/21/20 22:12 Urine Bilirubin NEGATIVE (NEGATIVE) 07/21/20 22:12 Urine Urobilinogen NEGATIVE mg/dL (<2.0) 07/21/20 22:12 Ur Leukocyte Esterase TRACE (NEGATIVE) H 07/21/20 22:12 Urine WBC (Auto) 2 /HPF 07/21/20 22:12 Urine RBC (Auto) 0 /HPF 07/21/20 22:12 U Hyaline Cast (Auto) 1 /LPF 07/21/20 22:12 Squamous Epi Cells Auto <1 /HPF 07/21/20 22:12 Urine Mucus (Auto) RARE /LPF 07/21/20 22:12 Urine Ascorbic Acid 40 (NEGATIVE) H 07/21/20 22:12 Influenza A (RT-PCR) NEGATIVE (NEGATIVE) 07/23/20 13:35 Influenza B (RT-PCR) NEGATIVE (NEGATIVE) 07/23/20 13:35 RSV (RT-PCR) NEGATIVE (NEGATIVE) 07/23/20 13:35 SARS-CoV-2 Rap RNA(RT-PCR) POSITIVE (NEGATIVE) 07/23/20 13:35 Slides for Path Review PATHOLOGIST REVIEWED 07/22/20 07:00 Blood Type O POSITIVE 07/23/20 08:10 Antibody Screen NEGATIVE 07/23/20 08:10 Crossmatch See Detail 07/23/20 08:10 07/21/20 07/21/20 16:15 16:15 CK-MB (CK-2) 0.88 Troponin I 0.020 NT-Pro-B Natriuret Pep 842 H Impressions: Chest X-Ray 07/21/20 15:37 IMPRESSION: Severe emphysematous change without evidence of acute cardiopulmonary process. Plan Time Spent: Greater than 30 Minutes Stroke Is this a Stroke Patient?: No Acute Heart Failure Is this a Heart Failure Patient?: No
[2020-07-26] MEDS: SIMVASTATIN 40 MG TABLET PO SCH (17:01)
[2020-07-27] MEDS: IPRATROPIUM/ALBUTEROL 0.5-2.5 MG/3 ML AMPUL NEB SCH ×4 (02:09→20:18)
[2020-07-27] MEDS: PANTOPRAZOLE SODIUM 40 MG TABLET.DR PO SCH ×2 (05:34→17:15)
[2020-07-27 06:18] LABS: ABSOLUTE LYMPHOCYTES (AUTO) 0.9 10^3/uL (0.5-4.7); ABSOLUTE MONOCYTES (AUTO) 0.5 10^3/uL (0.1-1.4); ABSOLUTE NEUT (AUTO) 5.1 10^3/uL (1.7-8.2); EOSINOPHILS % (AUTO) 0.2 % (0-6); HEMATOCRIT 23.1 % (37.9-51.0); LYMPHOCYTES % (AUTO) 13.4 % (13-45); MEAN CORPUSCULAR HEMOGLOBIN 28.1 pg (27.0-33.4); MEAN CORPUSCULAR HGB CONC 32.7 g/dL (32.0-36.0); MEAN CORPUSCULAR VOLUME 86 fl (80-97); MONOCYTES % (AUTO) 7.2 % (3-13); PLATELET COUNT 157 10^3/uL (150-450); RED BLOOD COUNT 2.69 10^6/uL (4.35-5.55); RED CELL DISTRIBUTION WIDTH 19.7 % (11.5-14.0); SEGMENTED NEUTROPHILS % (AUTO) 79.2 % (42-78); TOTAL CELLS COUNTED % (AUTO) 100 %; WHITE BLOOD COUNT 6.4 10^3/uL (4.0-10.5)
[2020-07-27 06:36] LABS: ALBUMIN 2.3 g/dL (3.5-5.0); ALKALINE PHOSPHATASE 56 U/L (38-126); ASPARTATE AMINO TRANSFERASE 37 U/L (17-59); BILIRUBIN,DIRECT 0.1 mg/dL (0.0-0.4); BILIRUBIN,TOTAL 0.4 mg/dL (0.2-1.3); BLOOD UREA NITROGEN 29 mg/dL (7-20); CALCIUM 7.9 mg/dL (8.4-10.2); CHLORIDE 95 mmol/L (98-107); GLUCOSE 79 mg/dL (75-110); POTASSIUM 4.4 mmol/L (3.6-5.0); TOTAL PROTEIN 4.5 g/dL (6.3-8.2)
[2020-07-27 06:49] LABS: ANION GAP -2 (5-19)
[2020-07-27 06:50] LABS: CARBON DIOXIDE 43 mmol/L (22-30)
[2020-07-27 06:56] LABS: ANISOCYTOSIS 2+
[2020-07-27 06:57] LABS: HYPOCHROMASIA SLIGHT; OVALOCYTES SLIGHT; PLATELET COMMENT ADEQUATE; POIKILOCYTOSIS SLIGHT; ROULEAUX SLIGHT; SCHISTOCYTES SLIGHT
[2020-07-27 06:59] LABS: HEMOGLOBIN 7.6 g/dL (13.5-17.0)
[2020-07-27] MEDS: SUCRALFATE 1 GM TABLET PO SCH ×4 (07:56→21:41)
[2020-07-27] MEDS: ROFLUMILAST 500 MCG TABLET PO SCH (11:27)
[2020-07-27] MEDS: ASPIRIN 81 MG TABLET, ENT COATED PO SCH (11:27)
[2020-07-27] MEDS: ZINC SULFATE 220 MG CAPSULE PO SCH (11:27)
[2020-07-27] MEDS: ASCORBIC ACID 500 MG TABLET PO SCH ×2 (11:27→17:15)
[2020-07-27] MEDS: CHOLECALCIFEROL (D3) 1,000 UNIT (25 MCG) TABLET PO SCH (11:27)
[2020-07-27] MEDS: FERROUS SULFATE 325 MG TABLET PO SCH (11:32)
[2020-07-27] MEDS: PREDNISONE 20 MG TABLET PO SCH (11:32)
[2020-07-27] MEDS: MEGESTROL ACETATE SUSP 400 MG/10 ML UDCUP PO SCH (11:32)
--- NOTE | 2020-07-27 14:32 | PDOC PROGRESS REPORT ---
Subjective Date:: 07/27/20 Subjective:: Patient appealed discharge yesterday, he is on his baseline 3L [place] O2, and did no t feel comfortable going home. He thinks he can get his brother to help him get groceries. He is worried about going home and requests help. denies CP, shortness of breath is worse with exertion Reason For Visit: COPD EXACERBATION CHRONIC HYPOXIC AND HYPERCAPNIC Physical Exam Vital Signs: Temp Pulse Resp BP Pulse Ox 98.0 F 76 20 108/65 100 07/27/20 08:35 07/27/20 08:35 07/27/20 08:35 07/27/20 08:35 07/27/20 08:35 Intake & Output 07/26/20 07/27/20 07/28/20 06:59 06:59 06:59 Intake Total 1365 625 Output Total 275 250 Balance 1090 375 Weight 42.6 kg 41.7 kg General appearance: PRESENT: no acute distress, other - able to speak in full sentences, while eating his breakfast; cachectic Respiratory exam: PRESENT: decreased breath sounds, other - on 3L [place] O2 Cardiovascular exam: PRESENT: RRR Pulses: PRESENT: normal radial pulses Vascular exam: PRESENT: normal capillary refill Results Laboratory Results: 07/27/20 05:28 07/27/20 05:28 07/27/20 07/27/20 05:28 05:28 WBC 6.4 RBC 2.69 L Hgb 7.6 L Hct 23.1 L MCV 86 MCH 28.1 MCHC 32.7 RDW 19.7 H Plt Count 157 Seg Neutrophils % 79.2 H Sodium 136.0 L Potassium 4.4 Chloride 95 L Carbon Dioxide 43 H* Anion Gap -2 L BUN 29 H Creatinine 0.52 Est GFR ( Amer) > 60 Glucose 79 Calcium 7.9 L Total Bilirubin 0.4 AST 37 Alkaline Phosphatase 56 Total Protein 4.5 L Albumin 2.3 L 07/21/20 07/21/20 07/21/20 16:15 16:15 16:15 Creatine Kinase < 20 L CK-MB (CK-2) 0.88 Troponin I 0.020 NT-Pro-B Natriuret Pep 842 H 07/21/20 16:15 Creatine Kinase Cancelled CK-MB (CK-2) Troponin I NT-Pro-B Natriuret Pep Impressions: Chest X-Ray 12/18/20 15:37 IMPRESSION: Severe emphysematous change without evidence of acute cardiopulmonary process. Assessment and Plan - Diagnosis (1) Acute on chronic respiratory failure with hypoxia and hypercapnia Is this a current diagnosis for this admission?: Yes (2) Anemia Qualifiers: Anemia type: unspecified type Qualified Code(s): D64.9 - Anemia, unsp ecified Is this a current diagnosis for this admission?: Yes (3) CHF (congestive heart failure) Qualifiers: Heart failure type: systolic Heart failure chronicity: chronic Qualified Code(s): I50.22 - Chronic systolic (congestive) heart failure Is this a current diagnosis for this admission?: Yes (4) Cachexia Is this a current diagnosis for this admission?: Yes Plan: discuss with PCP, megace started. PPN started (5) Protein-energy malnutrition Qualifiers: Protein-calorie malnutrition severity: moderate Qualified Code(s): E44.0 - Moderate protein-calorie malnutrition Is this a current diagnosis for this admission?: Yes Plan: megace and PPN - Plan Summary Summary: Max is concerned about going home due to lack of help, he is set up with HH aide, RN PT OT SW and referral is made for meals on wheels. Patient has a brother that can help a little. Max is on his baseline 3L of O2. Due to chronic CHF and Hb > 7 with VSS, not a candidate for blood transfusion today. His aortic stenosis is mild on review of last echo report, and he would benefit from at least initiation of HH services, including PT/OT, if does well, consider referral of cardiopulmonary rehab by PCP. I have called PCP's office and notified the RN for the PCP to set up referral as outpatient. Patient's broth/niece concerned about recurrent visits to the hospital, anemia, would like evaluation and treatment, due to unintentional weight loss, 16lbs and positive hemeoccult. Megace started, Gen surg avail only today consulted. Hemeoccult reordered, PPN started. cancel his discharge. he remains at high risk of morbidity and mortality, family refuses SNF - Time Time Spent with patient: 25-34 minutes Anticipated Discharge Disposition: Home with Home Health Anticipated Discharge Timeframe: within 72 hours
[2020-07-27] MEDS: POTASSI CL 20 MEQ/D5-1/2NS 1L 1000 ML IV PRN (14:49)
[2020-07-27] MEDS: SIMVASTATIN 40 MG TABLET PO SCH (17:15)
--- NOTE | 2020-07-27 17:32 | PDOC CONSULTATION ---
Consultation Consult Date: 07/27/20 Attending physician:: CRISTINE MCCAIN Provider Consulted: ROXANA MÉNDEZ Consult reason:: colonoscopy History of Present Illness Admission Date/PCP: 07/21/20 22:21 SANIYA TUTTLE MD History of Present Illness: JAVIER MARTINEZ is a 80 year old male patient With a history of COPD on 3 L intranasal oxygen at home iron deficiency anemia, recent history of GI bleed for which he was scheduled to have outpatient endoscopy on his last discharge now is brought in by EMS for adult onset worsening of shortness of breath. Patient has nebulizer at home and despite using multiple times he symptoms fail to improve. He was given breathing treatment, Solu-Medrol and magnesium during transfer by EMS and he reports interval improvement in his symptoms. He was recently diagnosed for COVID-19 on 07/16/2020 when he was screened by her to undergoing endoscopy and he was apparently doing well since discharge until his shortness of breath got worse today. He has a chronic cough and has not noticed worsening of his cough. He denies fever, chills, body aches, nausea, vomiting or diarrhea. He states that he has not noticed bright red bleeding per rectum or melena since discharge from hospital and denies any dizziness/lightheadedness Patient was discharged in the hospital yesterday and the patient felt that he could have his brother help him at home with groceries and other needs. However the brother refuses to take him home at this point and states he should have his colonoscopy done while he was in the hospital. Despite the fact that he is Covid positive. And despite the fact the patient does not have any recent evidence of lower GI bleeding bright red blood or melena. Past Medical History Cardiac Medical History: Reports: Congestive Heart Failure - Ejection fraction 40 to 45% a few weeks ago Pulmonary Medical History: Reports: Chronic Obstructive Pulmonary Disease (COPD) Psychiatric Medical History: Denies: Depression Hematology: Reports: Anemia Past Surgical History Past Surgical History: Denies: Cardiac Catheterization, Coronary Artery Bypass Graft Social History Lives with: Alone Smoking Status: Former Smoker Electronic Cigarette use?: No Frequency of Alcohol Use: None Hx Recreational Drug Use: No Drugs: None Hx Prescription Drug Abuse: No - Advance Directive Resuscitation Status: Full Code Family History Family History: None Parental Family History Reviewed: No Children Family History Reviewed: NA Sibling(s) Family History Reviewed.: NA Medication/Allergy Home Medications: Fluticasone/Salmeterol [Advair 250-50 Diskus 14 Dose/Diskus] 1 puff IH Q12 06/27/20 Ipratropium/Albuterol Sulfate [Duoneb 3 ml Ampul] 1 vial NEB RTQ6HP PRN 06/27/20 Simvastatin [Zocor 40 mg Tablet] 40 mg PO QPM 06/27/20 Tiotropium [place] [Spiriva Handihaler 5 Cap/Kit (18 Mcg/Cap)] 1 cap IH DAILY 06/27/20 Furosemide [Lasix 20 mg Tablet] 20 mg PO DAILY #30 tablet 07/04/20 Pantoprazole Sodium [Protonix [address] Tablet] 40 mg PO BID #60 tablet.dr 07/16/20 Sucralfate [Carafate 1 gm Tablet] 1 gm PO ACHS #120 tablet 07/16/20 Albuterol Sulfate [Ventolin Hfa 8 gm Mdi] 2 puff IH Q4HP PRN 07/22/20 Lisinopril [Prinivil 5 mg Tablet] 5 mg PO DAILY 07/22/20 Roflumilast [Daliresp] 250 mcg PO DAILY 07/22/20 Ascorbic Acid [Vitamin C 500 mg Tablet] 500 mg PO BID tablet 07/26/20 Aspirin [Ecotrin 81 mg EC Tablet] 81 mg PO DAILY tabec 07/26/20 Cholecalciferol (Vitamin D3) [Vitamin D3 1000 Unit Tablet] 2,000 unit PO DAILY tablet 07/26/20 Ferrous Sulfate [Feosol 325 mg Tablet] 325 mg PO DAILY tablet 07/26/20 Prednisone 10 mg PO DAILY #48 tab.ds.pk 07/26/20 Zinc Sulfate [Zinc-220 Capsule] 220 mg PO DAILY capsule 07/26/20 Allergies/Adverse Reactions: No Known Allergies Allergy (Verified 07/21/20 15:42) Review of Systems Constitutional: PRESENT: anorexia, fatigue, weight loss Eyes: ABSENT: as per HPI, visual disturbances, other Ears: ABSENT: as per HPI, hearing changes, other Nose, Mouth, and Throat: ABSENT: as per HPI, headache(s), mouth pain, sore throat, vertigo, other Breasts: ABSENT: as per HPI, other Cardiovascular: ABSENT: as per HPI, chest pain, dyspnea on exertion, edema, orthropnea, palpitations, other Respiratory: PRESENT: as per HPI Gastrointestinal: PRESENT: as per HPI Genitourinary: ABSENT: as per HPI, difficulty urinating, dysuria, hematuria, nocturia, other Musculoskeletal: ABSENT: as per HPI, back pain, deformity, joint swelling, muscle weakness, other Integumentary: ABSENT: as per HPI, diaphoresis, erythema, lesions, pruritus, rash, wounds, other Neurological: ABSENT: as per HPI, abnormal gait, abnormal movements, abnormal speech, confusion, convulsions, dizziness, focal weakness, frequent falls, lack of coordination, memory loss, numbness, paresthesias, restless legs, syncope, ti ngling, tremor(s), vertigo, weakness, other Psychiatric: ABSENT: as per HPI, anxiety, depression, hallucinations, homidical ideation, suicidal ideation, other Endocrine: ABSENT: as per HPI, cold intolerance, flushing, heat intolerance, menstrual abnormalities, polydipsia, polyphagia, polyuria, other Hematologic/Lymphatic: ABSENT: as per HPI, easy bleeding, easy bruising, lymphadenopathy, other Allergic/Immunologic: ABSENT: as per HPI, seasonal rhinorrhea, other Physical Exam Vital Signs: Temp Pulse Resp BP Pulse Ox 98.5 F 96 20 119/59 L 100 07/27/20 15:10 07/27/20 15:10 07/27/20 15:10 07/27/20 15:10 07/27/20 15:10 Intake & Output 07/26/20 07/27/20 07/28/20 06:59 06:59 06:59 Intake Total 1365 625 380 Output Total 275 250 Balance 1090 375 380 Weight 42.6 kg 41.7 kg General appearance: PRESENT: mild distress Head exam: PRESENT: normocephalic Eye exam: PRESENT: EOMI Ear exam: PRESENT: normal external ear exam Mouth exam: PRESENT: moist Neck exam: PRESENT: full ROM Respiratory exam: PRESENT: accessory muscle use, decreased breath sounds, prolonged expiratory phas, retraction Cardiovascular exam: PRESENT: RRR Pulses: PRESENT: normal radial pulses, normal femoral pulses Breast: PRESENT: Normal GI/Abdominal exam: PRESENT: soft Rectal exam: PRESENT: deferred Extremities exam: PRESENT: full ROM Musculoskeletal exam: PRESENT: full ROM Neurological exam: PRESENT: alert, awake, oriented to person, oriented to place Psychiatric exam: PRESENT: appropriate affect Skin exam: PRESENT: dry Results Laboratory Results: 07/27/20 05:28 07/27/20 05:28 07/27/20 07/27/20 05:28 05:28 WBC 6.4 RBC 2.69 L Hgb 7.6 L Hct 23.1 L MCV 86 MCH 28.1 MCHC 32.7 RDW 19.7 H Plt Count 157 Seg Neutrophils % 79.2 H Sodium 136.0 L Potassium 4.4 Chloride 95 L Carbon Dioxide 43 H* Anion Gap -2 L BUN 29 H Creatinine 0.52 Est GFR ( Amer) > 60 Glucose 79 Calcium 7.9 L Total Bilirubin 0.4 AST 37 Alkaline Phosphatase 56 Total Protein 4.5 L Albumin 2.3 L 07/21/20 07/21/20 07/21/20 16:15 16:15 16:15 Creatine Kinase < 20 L CK-MB (CK-2) 0.88 Troponin I 0.020 NT-Pro-B Natriuret Pep 842 H 07/21/20 16:15 Creatine Kinase Cancelled CK-MB (CK-2) Troponin I NT-Pro-B Natriuret Pep Impressions: Chest X-Ray 07/21/20 15:37 IMPRESSION: Severe emphysematous change without evidence of acute cardiopulmonary process. Assessment & Plan - Plan Summary Plan Summary: This is an 80-year-old male with severe COPD recent hospitalization for GI bleed that has subsequently stopped. Has had failure to thrive, chronic anemia. Was readmitted for increased shortness of breath and increased oxygen requirements. His oxygen requirements improved while was in the hospital and he is ready for discharge home however the family insisted on having his colonoscopy while he was in the hospital, despite the fact that he is Covid negative and is not actively bleeding. After review of the patient's chart and current symptoms of surgery feels that it is inappropriate to perform an emergency colonoscopy on this patient that is Covid Covid positive with severe COPD and suggest that the patient undergo a outpatient colonoscopy as previously planned. Please refer the patient to either gastroenterology or general surgery for outpatient colonoscopy upon discharge. Surgery will sign off at this time please reconsult if necessary.
[2020-07-27] MEDS: FLUTICASONE PROPIONATE HFA 110 MCG/PUFF 12 GM MDI IH SCH (21:40)
[2020-07-28] MEDS: IPRATROPIUM/ALBUTEROL 0.5-2.5 MG/3 ML AMPUL NEB SCH ×4 (02:21→20:50)
[2020-07-28] MEDS: POTASSI CL 20 MEQ/D5-1/2NS 1L 1000 ML IV PRN ×2 (05:38→21:51)
[2020-07-28] MEDS: PANTOPRAZOLE SODIUM 40 MG TABLET.DR PO SCH ×2 (05:38→17:10)
[2020-07-28 06:36] LABS: ABSOLUTE LYMPHOCYTES (AUTO) 0.8 10^3/uL (0.5-4.7); ABSOLUTE MONOCYTES (AUTO) 0.5 10^3/uL (0.1-1.4); ABSOLUTE NEUT (AUTO) 6.8 10^3/uL (1.7-8.2); BASOPHILS % (AUTO) 0.1 % (0-2); LYMPHOCYTES % (AUTO) 9.6 % (13-45); MEAN CORPUSCULAR HGB CONC 33.3 g/dL (32.0-36.0); MEAN CORPUSCULAR VOLUME 87 fl (80-97); MONOCYTES % (AUTO) 5.8 % (3-13); PLATELET COUNT 176 10^3/uL (150-450); RED BLOOD COUNT 2.53 10^6/uL (4.35-5.55); RED CELL DISTRIBUTION WIDTH 19.7 % (11.5-14.0); SEGMENTED NEUTROPHILS % (AUTO) 84.5 % (42-78); TOTAL CELLS COUNTED % (AUTO) 100 %
[2020-07-28 07:00] LABS: ALBUMIN 2.3 g/dL (3.5-5.0); ALKALINE PHOSPHATASE 61 U/L (38-126); ASPARTATE AMINO TRANSFERASE 40 U/L (17-59); BILIRUBIN,DIRECT 0.2 mg/dL (0.0-0.4); BILIRUBIN,TOTAL 0.4 mg/dL (0.2-1.3); BLOOD UREA NITROGEN 31 mg/dL (7-20); CALCIUM 8.1 mg/dL (8.4-10.2); CHLORIDE 97 mmol/L (98-107); GLUCOSE 104 mg/dL (75-110); POTASSIUM 4.7 mmol/L (3.6-5.0); TOTAL PROTEIN 4.6 g/dL (6.3-8.2)
[2020-07-28 07:17] LABS: CARBON DIOXIDE 40 mmol/L (22-30)
[2020-07-28 08:33] LABS: ANISOCYTOSIS 1+
[2020-07-28 08:34] LABS: HYPOCHROMASIA SLIGHT; OVALOCYTES SLIGHT; PLATELET COMMENT ADEQUATE; POIKILOCYTOSIS SLIGHT; POLYCHROMASIA SLIGHT; SCHISTOCYTES SLIGHT
[2020-07-28 08:36] LABS: HEMOGLOBIN 7.3 g/dL (13.5-17.0)
[2020-07-28 09:17] LABS: ANION GAP 5 (5-19)
[2020-07-28] MEDS: PREDNISONE 20 MG TABLET PO SCH (09:34)
[2020-07-28] MEDS: ASPIRIN 81 MG TABLET, ENT COATED PO SCH (09:34)
[2020-07-28] MEDS: SUCRALFATE 1 GM TABLET PO SCH ×4 (09:34→21:50)
[2020-07-28] MEDS: ROFLUMILAST 500 MCG TABLET PO SCH (09:34)
[2020-07-28] MEDS: ZINC SULFATE 220 MG CAPSULE PO SCH (09:34)
[2020-07-28] MEDS: CHOLECALCIFEROL (D3) 1,000 UNIT (25 MCG) TABLET PO SCH (09:35)
[2020-07-28] MEDS: ASCORBIC ACID 500 MG TABLET PO SCH ×2 (09:35→17:10)
[2020-07-28] MEDS: FERROUS SULFATE 325 MG TABLET PO SCH (09:35)
[2020-07-28] MEDS: MEGESTROL ACETATE SUSP 400 MG/10 ML UDCUP PO SCH (09:35)
[2020-07-28] MEDS: FLUTICASONE PROPIONATE HFA 110 MCG/PUFF 12 GM MDI IH SCH ×4 (09:36→21:52)
[2020-07-28] MEDS: SIMVASTATIN 40 MG TABLET PO SCH (17:10)
--- NOTE | 2020-07-28 18:03 | PDOC PROGRESS REPORT ---
Subjective Date:: 07/28/20 Subjective:: patient denies abdominal pain, has had trouble getting mucous up Reason For Visit: COPD EXACERBATION CHRONIC HYPOXIC AND HYPERCAPNIC Physical Exam Vital Signs: Temp Pulse Resp BP Pulse Ox 98.2 F 98 20 127/54 H 96 07/28/20 15:22 07/28/20 15:22 07/28/20 15:22 07/28/20 15:22 07/28/20 15:22 Intake & Output 07/27/20 07/28/20 07/29/20 06:59 06:59 06:59 Intake Total 625 2075 Output Total 250 900 Balance 375 1175 Weight 41.7 kg 42.2 kg General appearance: PRESENT: no acute distress Respiratory exam: PRESENT: rhonchi, unlabored, other - on 3L Cardiovascular exam: PRESENT: RRR GI/Abdominal exam: PRESENT: soft. ABSENT: tenderness Results Laboratory Results: 07/28/20 06:12 07/28/20 06:12 07/28/20 07/28/20 06:12 06:12 WBC 8.0 RBC 2.53 L Hgb 7.3 L Hct 22.0 L MCV 87 MCH 29.0 MCHC 33.3 RDW 19.7 H Plt Count 176 Seg Neutrophils % 84.5 H Sodium 135.9 L Potassium 4.7 Chloride 97 L Carbon Dioxide 40 H* Anion Gap 5 BUN 31 H Creatinine 0.67 Est GFR ( Amer) > 60 Glucose 104 Calcium 8.1 L Total Bilirubin 0.4 AST 40 Alkaline Phosphatase 61 Total Protein 4.6 L Albumin 2.3 L 07/21/20 07/21/20 07/21/20 16:15 16:15 16:15 Creatine Kinase < 20 L CK-MB (CK-2) 0.88 Troponin I 0.020 NT-Pro-B Natriuret Pep 842 H 07/21/20 16:15 Creatine Kinase Cancelled CK-MB (CK-2) Troponin I NT-Pro-B Natriuret Pep Impressions: Chest X-Ray 07/21/20 15:37 IMPRESSION: Severe emphysematous change without evidence of acute cardiopulmonary process. Assessment and Plan - Diagnosis (1) Acute on chronic respiratory failure with hypoxia and hypercapnia Is this a current diagnosis for this admission?: Yes (2) Anemia Qualifiers: Anemia type: unspecified type Qualified Code(s): D64.9 - Anemia, unspecified Is this a current diagnosis for this admission?: Yes (3) CHF (congestive heart failure) Qualifiers: Heart failure type: systolic Heart failure chronicity: chronic Qualified Code(s): I50.22 - Chronic systolic (congestive) heart failure Is this a current diagnosis for this admission?: Yes (4) Cachexia Is this a current diagnosis for this admission?: Yes (5) Protein-energy malnutrition Qualifiers: Protein-calorie malnutrition severity: moderate Qualified Code(s): E44.0 - Moderate protein-calorie malnutrition Is this a current diagnosis for this admission?: Yes - Plan Summary Summary: 1. COVID-19: RN D/w Surgery today, unable to perform C-scope, NM scan ordered 2. COPD with chronic hypoxia: on his home 3L 3. Anemia: has had hsitory of recurrent anemia requiring transfusion, NM bleeding scan ordered 4. Mod PEM: on PPN and megace Plan d/w brother - Time Time Spent with patient: 15-24 minutes Anticipated Discharge Disposition: Home with Home Health Anticipated Discharge Timeframe: within 72 hours
[2020-07-29] MEDS: IPRATROPIUM/ALBUTEROL 0.5-2.5 MG/3 ML AMPUL NEB SCH ×4 (01:58→19:46)
[2020-07-29] MEDS: PANTOPRAZOLE SODIUM 40 MG TABLET.DR PO SCH ×2 (05:13→17:46)
[2020-07-29 06:29] LABS: ABSOLUTE LYMPHOCYTES (AUTO) 0.7 10^3/uL (0.5-4.7); ABSOLUTE MONOCYTES (AUTO) 0.5 10^3/uL (0.1-1.4); ABSOLUTE NEUT (AUTO) 7.2 10^3/uL (1.7-8.2); BASOPHILS % (AUTO) 0.1 % (0-2); EOSINOPHILS % (AUTO) 0.1 % (0-6); HEMATOCRIT 22.6 % (37.9-51.0); LYMPHOCYTES % (AUTO) 8.5 % (13-45); MEAN CORPUSCULAR HEMOGLOBIN 28.4 pg (27.0-33.4); MEAN CORPUSCULAR HGB CONC 32.6 g/dL (32.0-36.0); MEAN CORPUSCULAR VOLUME 87 fl (80-97); MONOCYTES % (AUTO) 6.3 % (3-13); PLATELET COUNT 185 10^3/uL (150-450); RED CELL DISTRIBUTION WIDTH 16.8 % (11.5-14.0); TOTAL CELLS COUNTED % (AUTO) 100 %; WHITE BLOOD COUNT 8.4 10^3/uL (4.0-10.5)
[2020-07-29 06:58] LABS: HEMOGLOBIN 7.4 g/dL (13.5-17.0)
[2020-07-29 07:00] LABS: ALBUMIN 2.4 g/dL (3.5-5.0); ALKALINE PHOSPHATASE 55 U/L (38-126); ASPARTATE AMINO TRANSFERASE 35 U/L (17-59); BILIRUBIN,DIRECT 0.1 mg/dL (0.0-0.4); BILIRUBIN,TOTAL 0.3 mg/dL (0.2-1.3); BLOOD UREA NITROGEN 29 mg/dL (7-20); CALCIUM 8.2 mg/dL (8.4-10.2); CARBON DIOXIDE 38 mmol/L (22-30); CHLORIDE 101 mmol/L (98-107); GLUCOSE 95 mg/dL (75-110); POTASSIUM 4.6 mmol/L (3.6-5.0); TOTAL PROTEIN 4.6 g/dL (6.3-8.2)
[2020-07-29 07:04] LABS: POLYCHROMASIA SLIGHT
[2020-07-29 07:05] LABS: ANISOCYTOSIS 2+; POIKILOCYTOSIS SLIGHT
[2020-07-29 07:06] LABS: OVALOCYTES SLIGHT; PLATELET COMMENT ADEQUATE; SCHISTOCYTES SLIGHT
[2020-07-29] MEDS: SUCRALFATE 1 GM TABLET PO SCH ×4 (09:32→21:35)
[2020-07-29] MEDS: ROFLUMILAST 500 MCG TABLET PO SCH (09:32)
[2020-07-29] MEDS: ASCORBIC ACID 500 MG TABLET PO SCH ×2 (09:33→17:46)
[2020-07-29] MEDS: ZINC SULFATE 220 MG CAPSULE PO SCH (09:33)
[2020-07-29] MEDS: MEGESTROL ACETATE SUSP 400 MG/10 ML UDCUP PO SCH (09:33)
[2020-07-29] MEDS: PREDNISONE 20 MG TABLET PO SCH ×3 (09:33→17:45)
[2020-07-29] MEDS: CHOLECALCIFEROL (D3) 1,000 UNIT (25 MCG) TABLET PO SCH (09:33)
[2020-07-29] MEDS: ASPIRIN 81 MG TABLET, ENT COATED PO SCH (09:33)
[2020-07-29] MEDS: FERROUS SULFATE 325 MG TABLET PO SCH (09:33)
[2020-07-29] MEDS: FLUTICASONE PROPIONATE HFA 110 MCG/PUFF 12 GM MDI IH SCH ×2 (09:34→21:58)
[2020-07-29] MEDS: IPRATROPIUM BROMIDE 0.06% NASAL SPRAY 15 ML NASL SCH ×2 (11:52→17:46)
[2020-07-29] MEDS: POTASSI CL 20 MEQ/D5-1/2NS 1L 1000 ML IV PRN (11:53)
[2020-07-29] MEDS: BUDESONIDE NEB 0.5 MG/2 ML AMPUL NEB SCH ×2 (12:39→19:46)
--- NOTE | 2020-07-29 12:55 | PDOC PROGRESS REPORT ---
Subjective Date:: 07/29/20 Subjective:: patient denies shortness of breath/chest pain, denies any rectal bleeding Reason For Visit: COPD EXACERBATION CHRONIC HYPOXIC AND HYPERCAPNIC Physical Exam Vital Signs: Temp Pulse Resp BP Pulse Ox 98.5 F 76 23 H 125/57 L 96 07/29/20 07:39 07/29/20 07:39 07/29/20 07:39 07/29/20 07:39 07/29/20 07:39 Intake & Output 07/28/20 07/29/20 07/30/20 06:59 06:59 06:59 Intake Total 5 1 1000 Output Total 900 2325 Balance 1175 -274 1000 Weight 42.2 kg 42.9 kg 42.9 kg General appearance: PRESENT: no acute distress Respiratory exam: PRESENT: rhonchi, other - on baseline 3L Cardiovascular exam: PRESENT: RRR GI/Abdominal exam: PRESENT: hypoactive bowel sounds, soft. ABSENT: tenderness Results Laboratory Results: 07/29/20 05:58 07/29/20 05:58 07/29/20 07/29/20 05:58 05:58 WBC 8.4 RBC 2.60 L Hgb 7.4 L Hct 22.6 L MCV 87 MCH 28.4 MCHC 32.6 RDW 16.8 H Plt Count 185 Seg Neutrophils % 85.0 H Sodium 138.3 Potassium 4.6 Chloride 101 Carbon Dioxide 38 H Anion Gap BUN 29 H Creatinine 0.58 Est GFR ( Amer) > 60 Glucose 95 Calcium 8.2 L Total Bilirubin 0.3 AST 35 Alkaline Phosphatase 55 Total Protein 4.6 L Albumin 2.4 L 07/21/20 07/21/20 07/21/20 16:15 16:15 16:15 Creatine Kinase < 20 L CK-MB (CK-2) 0.88 Troponin I 0.020 NT-Pro-B Natriuret Pep 842 H 07/21/20 16:15 Creatine Kinase Cancelled CK-MB (CK-2) Troponin I NT-Pro-B Natriuret Pep Impressions: Chest X-Ray 07/21/20 15:37 IMPRESSION: Severe emphysematous change without evidence of acute cardiopulmonary process. Assessment and Plan - Diagnosis (1) Acute on chronic respiratory failure with hypoxia and hypercapnia Is this a current diagnosis for this admission?: Yes (2) Anemia Qualifiers: Anemia type: unspecified type Qualified Code(s): D64.9 - Anemia, unspecified Is this a current diagnosis for this admission?: Yes (3) CHF (congestive heart failure) Qualifiers: Heart failure type: systolic Heart failure chronicity: chronic Qualified Code(s): I50.22 - Chronic systolic (congestive) heart failure Is this a current diagnosis for this admission?: Yes (4) Cachexia Is this a current diagnosis for this admission?: Yes (5) Protein-energy malnutrition Qualifiers: Protein-calorie malnutrition severity: moderate Qualified Code(s): E44.0 - Moderate protein-calorie malnutrition Is this a current diagnosis for this admission?: Yes - Plan Summary Summary: 1. COVID-19: improving 2. COPD with chronic hypoxia: on his home 3L, start on atrovent/ICS, wean down steroids 3. Anemia: has had history of recurrent anemia requiring transfusion, NM bleeding scan ordered. unable to do C-scope due to COVID per gen surg 4. Mod PEM: Was on PPN and megace. Hold PPN and see how he does. Suspect GI and respiratory causes of his PEM. At this point he is expelling a lot of reserve on breathing, since he is not acutely having any GI complaints. Plan d/w patient - Time Time Spent with patient: 15-24 minutes Anticipated Discharge Disposition: Home with Home Health Anticipated Discharge Timeframe: within 48 hours
[2020-07-29] MEDS: SIMVASTATIN 40 MG TABLET PO SCH (17:46)
[2020-07-30] MEDS: IPRATROPIUM/ALBUTEROL 0.5-2.5 MG/3 ML AMPUL NEB SCH ×4 (01:17→20:37)
[2020-07-30] MEDS: PANTOPRAZOLE SODIUM 40 MG TABLET.DR PO SCH ×2 (06:08→17:11)
[2020-07-30 07:15] LABS: HEMATOCRIT 23.5 % (37.9-51.0); MEAN CORPUSCULAR HEMOGLOBIN 28.4 pg (27.0-33.4); MEAN CORPUSCULAR HGB CONC 32.3 g/dL (32.0-36.0); MEAN CORPUSCULAR VOLUME 88 fl (80-97); PLATELET COUNT 214 10^3/uL (150-450); RED BLOOD COUNT 2.67 10^6/uL (4.35-5.55); RED CELL DISTRIBUTION WIDTH 16.6 % (11.5-14.0); RETICULOCYTE COUNT (AUTO) 1.89 % (0.66-2.85); WHITE BLOOD COUNT 10.6 10^3/uL (4.0-10.5)
[2020-07-30 07:30] LABS: ALBUMIN 2.6 g/dL (3.5-5.0); ALKALINE PHOSPHATASE 59 U/L (38-126); ASPARTATE AMINO TRANSFERASE 35 U/L (17-59); BILIRUBIN,TOTAL 0.3 mg/dL (0.2-1.3); BLOOD UREA NITROGEN 29 mg/dL (7-20); CALCIUM 8.4 mg/dL (8.4-10.2); CARBON DIOXIDE 38 mmol/L (22-30); CHLORIDE 99 mmol/L (98-107); GLUCOSE 97 mg/dL (75-110); IRON(TIBC) 15.6 ug/dL (49-181)
[2020-07-30] MEDS: SUCRALFATE 1 GM TABLET PO SCH ×4 (07:56→21:32)
[2020-07-30] MEDS: BUDESONIDE NEB 0.5 MG/2 ML AMPUL NEB SCH ×2 (08:25→20:37)
[2020-07-30 08:32] LABS: ABSOLUTE LYMPHOCYTES# (MANUAL) 0.4 10^3/uL (0.5-4.7); ABSOLUTE MONOCYTES # (MANUAL) 0.4 10^3/uL (0.1-1.4); BASOPHILS % (MANUAL) 0 % (0-2); EOSINOPHILS % (MANUAL) 0 % (0-6); LYMPHOCYTES % (MANUAL) 4 % (13-45); MONOCYTES % (MANUAL) 4 % (3-13); SEGMENTED NEUTROPHILS % (MAN) 92 % (42-78); TOTAL CELLS COUNTED 100
[2020-07-30 08:33] LABS: ANISOCYTOSIS 1+; OVALOCYTES 1+; PLATELET CLUMPS PRESENT; PLATELET COMMENT ADEQUATE
[2020-07-30 08:35] LABS: HEMOGLOBIN 7.6 g/dL (13.5-17.0)
[2020-07-30] MEDS: ROFLUMILAST 500 MCG TABLET PO SCH (09:48)
[2020-07-30] MEDS: ASCORBIC ACID 500 MG TABLET PO SCH ×2 (09:48→17:11)
[2020-07-30] MEDS: ASPIRIN 81 MG TABLET, ENT COATED PO SCH (09:48)
[2020-07-30] MEDS: ZINC SULFATE 220 MG CAPSULE PO SCH (09:48)
[2020-07-30] MEDS: CHOLECALCIFEROL (D3) 1,000 UNIT (25 MCG) TABLET PO SCH (09:48)
[2020-07-30] MEDS: PREDNISONE 20 MG TABLET PO SCH ×2 (09:48→17:11)
[2020-07-30] MEDS: FERROUS SULFATE 325 MG TABLET PO SCH ×2 (09:48→20:31)
[2020-07-30] MEDS: MEGESTROL ACETATE SUSP 400 MG/10 ML UDCUP PO SCH (09:49)
[2020-07-30] MEDS: FLUTICASONE PROPIONATE HFA 110 MCG/PUFF 12 GM MDI IH SCH ×2 (09:50→21:34)
[2020-07-30] MEDS: IPRATROPIUM BROMIDE 0.06% NASAL SPRAY 15 ML NASL SCH ×2 (09:50→17:11)
[2020-07-30] MEDS: SIMVASTATIN 40 MG TABLET PO SCH (17:11)
--- NOTE | 2020-07-30 18:23 | PDOC PROGRESS REPORT ---
Subjective Date:: 07/30/20 Subjective:: patient denies any rectal bleeding no concerns per RN Reason For Visit: COPD EXACERBATION CHRONIC HYPOXIC AND HYPERCAPNIC Physical Exam Vital Signs: Temp Pulse Resp BP Pulse Ox 98.6 F 91 22 H 132/56 H 99 07/30/20 12:05 07/30/20 13:52 07/30/20 13:52 07/30/20 12:05 07/30/20 13:52 Intake & Output 07/29/20 07/30/20 07/31/20 06:59 06:59 06:59 Intake Total 2051 2369 Output Total 2325 2075 Balance -274 294 Weight 42.9 kg 44.3 kg General appearance: PRESENT: no acute distress Respiratory exam: PRESENT: rhonchi, other - on 3L Cardiovascular exam: PRESENT: RRR Results Laboratory Results: 07/30/20 06:17 07/30/20 06:17 07/30/20 07/30/20 06:17 06:17 WBC 10.6 H RBC 2.67 L Hgb 7.6 L Hct 23.5 L MCV 88 MCH 28.4 MCHC 32.3 RDW 16.6 H Plt Count 214 Seg Neutrophils % Not Reportable Retic Count (auto) 1.89 Sodium 135.8 L Potassium 5.0 Chloride 99 Carbon Dioxide 38 H Anion Gap BUN 29 H Creatinine 0.65 Est GFR ( Amer) > 60 Glucose 97 Calcium 8.4 Iron 15.6 L TIBC 309 % Saturation 5 Ferritin 28.80 Total Bilirubin 0.3 AST 35 Alkaline Phosphatase 59 Total Protein 5.0 L Albumin 2.6 L Vitamin B12 446.0 Folate 11.70 07/21/20 07/21/20 07/21/20 16:15 16:15 16:15 Creatine Kinase < 20 L CK-MB (CK-2) 0.88 Troponin I 0.020 NT-Pro-B Natriuret Pep 842 H 07/21/20 16:15 Creatine Kinase Cancelled CK-MB (CK-2) Troponin I NT-Pro-B Natriuret Pep Impressions: Chest X-Ray 07/21/20 15:37 IMPRESSION: Severe emphysematous change without evidence of acute cardiopulmonary process. Assessment and Plan - Diagnosis (1) Acute on chronic respiratory failure with hypoxia and hypercapnia Is this a current diagnosis for this admission?: Yes (2) Anemia Qualifiers: Anemia type: unspecified type Qualified Code(s): D64.9 - Anemia, unspecified Is this a current diagnosis for this admission?: Yes (3) CHF (congestive heart failure) Qualifiers: Heart failure type: systolic Heart failure chronicity: chronic Qualified Code(s): I50.22 - Chronic systolic (congestive) heart failure Is this a current diagnosis for this admission?: Yes (4) Cachexia Is this a current diagnosis for this admission?: Yes (5) Protein-energy malnutrition Qualifiers: Protein-calorie malnutrition severity: moderate Qualified Code(s): E44.0 - Moderate protein-calorie malnutrition Is this a current diagnosis for this admission?: Yes - Plan Summary Summary: 1. COVID-19: improving 2. COPD with chronic hypoxia: on his home 3L, start on atrovent/ICS, wean down steroids 3. Anemia, iron deficiency: has had history of recurrent anemia requiring transfusion, NM bleeding scan ordered - pending. unable to do C-scope due to COVID per gen surg, increase dose of iron 4. Mod PEM: Was on PPN and megace. Hold PPN and see how he does, his weight is up 1lb. Suspect GI and respiratory causes of his PEM. At this point he is expelling a lot of reserve on breathing, since he is not acutely having any GI complaints. 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
[2020-07-31] MEDS: IPRATROPIUM/ALBUTEROL 0.5-2.5 MG/3 ML AMPUL NEB SCH ×4 (02:23→20:14)
[2020-07-31] MEDS: PANTOPRAZOLE SODIUM 40 MG TABLET.DR PO SCH ×2 (05:27→17:35)
[2020-07-31 06:21] LABS: ABSOLUTE LYMPHOCYTES (AUTO) 0.8 10^3/uL (0.5-4.7); ABSOLUTE MONOCYTES (AUTO) 0.5 10^3/uL (0.1-1.4); ABSOLUTE NEUT (AUTO) 10.8 10^3/uL (1.7-8.2); HEMATOCRIT 24.3 % (37.9-51.0); LYMPHOCYTES % (AUTO) 6.7 % (13-45); MEAN CORPUSCULAR HEMOGLOBIN 29.1 pg (27.0-33.4); MEAN CORPUSCULAR HGB CONC 32.6 g/dL (32.0-36.0); MEAN CORPUSCULAR VOLUME 89 fl (80-97); MONOCYTES % (AUTO) 4.3 % (3-13); PLATELET COUNT 233 10^3/uL (150-450); RED BLOOD COUNT 2.72 10^6/uL (4.35-5.55); TOTAL CELLS COUNTED % (AUTO) 100 %; WHITE BLOOD COUNT 12.1 10^3/uL (4.0-10.5)
[2020-07-31 06:40] LABS: ASPARTATE AMINO TRANSFERASE 36 U/L (17-59); CHLORIDE 97 mmol/L (98-107); GLUCOSE 95 mg/dL (75-110)
[2020-07-31 06:44] LABS: HEMOGLOBIN 7.9 g/dL (13.5-17.0)
[2020-07-31 06:48] LABS: ANISOCYTOSIS 1+; OVALOCYTES SLIGHT; TOXIC VACUOLATION PRESENT
[2020-07-31 06:49] LABS: PLATELET COMMENT ADEQUATE
[2020-07-31 07:23] LABS: ALBUMIN 2.8 g/dL (3.5-5.0); ALKALINE PHOSPHATASE 62 U/L (38-126); BILIRUBIN,DIRECT 0.1 mg/dL (0.0-0.4); BILIRUBIN,TOTAL 0.4 mg/dL (0.2-1.3); BLOOD UREA NITROGEN 33 mg/dL (7-20); CALCIUM 8.3 mg/dL (8.4-10.2); TOTAL PROTEIN 5.1 g/dL (6.3-8.2)
[2020-07-31 07:28] LABS: CARBON DIOXIDE 39 mmol/L (22-30)
[2020-07-31 07:35] LABS: ANION GAP 0 (5-19)
[2020-07-31] MEDS: BUDESONIDE NEB 0.5 MG/2 ML AMPUL NEB SCH ×2 (08:28→20:14)
[2020-07-31] MEDS: ASPIRIN 81 MG TABLET, ENT COATED PO SCH (09:09)
[2020-07-31] MEDS: ZINC SULFATE 220 MG CAPSULE PO SCH (09:10)
[2020-07-31] MEDS: ROFLUMILAST 500 MCG TABLET PO SCH (09:11)
[2020-07-31] MEDS: ASCORBIC ACID 500 MG TABLET PO SCH ×2 (09:11→17:35)
[2020-07-31] MEDS: CHOLECALCIFEROL (D3) 1,000 UNIT (25 MCG) TABLET PO SCH (09:11)
[2020-07-31] MEDS: SUCRALFATE 1 GM TABLET PO SCH ×4 (09:11→21:53)
[2020-07-31] MEDS: FLUTICASONE PROPIONATE HFA 110 MCG/PUFF 12 GM MDI IH SCH ×2 (09:12→21:54)
[2020-07-31] MEDS: IPRATROPIUM BROMIDE 0.06% NASAL SPRAY 15 ML NASL SCH ×2 (09:12→17:36)
[2020-07-31] MEDS: FERROUS SULFATE 325 MG TABLET PO SCH ×2 (09:12→17:36)
[2020-07-31] MEDS: MEGESTROL ACETATE SUSP 400 MG/10 ML UDCUP PO SCH (09:12)
[2020-07-31] MEDS: PREDNISONE 20 MG TABLET PO SCH (09:21)
--- NOTE | 2020-07-31 17:12 | RADIOLOGY REPORT (SQ) ---
EXAM DESCRIPTION: NM GI BLEED SCAN IMAGES COMPLETED DATE/TIME: 07/31/2020 4:47 pm REASON FOR STUDY: gi bleed COMPARISON: None. RADIONUCLIDE AND DOSE: 23.7 millicuries Technetium-labeled red blood cells. The route of agent administration: Intravenous. TECHNIQUE: Serial arterial-phase images acquired for 80 seconds immediately following injection of r adionuclide. Additional 60 images acquired at 60 seconds per image. LIMITATIONS: None. FINDINGS: Flow images without focal areas of abnormal radionuclide location. Serial images show no abnormal accumulation of radionuclide. IMPRESSION: NO DEFINITIVE EVIDENCE OF ACTIVE GASTROINTESTINAL BLEED. TECHNICAL DOCUMENTATION: JOB ID: [id number] 2010 [employer]- All Rights Reserved Reading location - IP/workstation name: [email or web address]
[2020-07-31] MEDS: SIMVASTATIN 40 MG TABLET PO SCH (17:36)
--- NOTE | 2020-07-31 18:34 | PDOC DISCHARGE SUMMARY ---
Impression - Admit/DC Date/PCP Admission Date/Primary Care Provider: 07/21/20 22:21 SANIYA TUTTLE MD Discharge Date: 07/31/20 - Discharge Diagnosis (1) Acute on chronic respiratory failure with hypoxia and hypercapnia Is this a current diagnosis for this admission?: Yes (2) Anemia Is this a current diagnosis for this admission?: Yes (3) Cachexia Is this a current diagnosis for this admission?: Yes (4) CHF (congestive heart failure) Is this a current diagnosis for this admission?: Yes (5) COPD (chronic obstructive pulmonary disease) Is this a current diagnosis for this admission?: Yes (6) COVID-19 virus detected Is this a current diagnosis for this admission?: Yes (7) Iron deficiency anemia due to chronic blood loss Is this a current diagnosis for this admission?: Yes (8) Protein-energy malnutrition Is this a current diagnosis for this admission?: Yes (9) Pulmonary hypertension, mild Is this a current diagnosis for this admission?: Yes (10) Systolic CHF, chronic Is this a current diagnosis for this admission?: Yes - Additional Information Resuscitation Status: Full Code Discharge Diet: As Tolerated Discharge Activity: Activity As Tolerated, Balance Activity w/Rest, Supervised Activity Referrals: ROXANA MÉNDEZ MD [ACTIVE STAFF] - (Follow-up with Dr. Méndez in 4 to 6 weeks for colonoscopy.) SHANTEL JUNIOR MD [ACTIVE STAFF] - (follow up in 4-6 weeks for chronic resp failure, COPD, and post-COVID) SANIYA TUTTLE MD [Primary Care Provider] - 08/07/20 2:45 pm (left message to call us 07-26-20 (13:20)) Prescriptions: Ferrous Sulfate [Feosol 325 mg Tablet] 325 mg PO BIDPCBS #60 tablet Megestrol Acetate [Megace Allyn 400 mg/10 ml Udcup] 400 mg PO DAILY #30 udc Prednisone 10 mg PO DAILY #48 tab.ds.pk Home Medications: Fluticasone/Salmeterol [Advair 250-50 Diskus 14 Dose/Diskus] 1 puff IH Q12 06/27/20 Ipratropium/Albuterol Sulfate [Duoneb 3 ml Ampul] 1 vial NEB RTQ6HP PRN 06/27/20 Simvastatin [Zocor 40 mg Tablet] 40 mg PO QPM 06/27/20 Tiotropium [place] [Spiriva Handihaler 5 Cap/Kit (18 Mcg/Cap)] 1 cap IH DAILY 06/27/20 Furosemide [Lasix 20 mg Tablet] 20 mg PO DAILY #30 tablet 07/04/20 Pantoprazole Sodium [Protonix [address] Tablet] 40 mg PO BID #60 tablet.dr 07/16/20 Sucralfate [Carafate 1 gm Tablet] 1 gm PO ACHS #120 tablet 07/16/20 Albuterol Sulfate [Ventolin Hfa 8 gm Mdi] 2 puff IH Q4HP PRN 07/22/20 Lisinopril [Prinivil 5 mg Tablet] 5 mg PO DAILY 07/22/20 Roflumilast [Daliresp] 250 mcg PO DAILY 07/22/20 Ascorbic Acid [Vitamin C 500 mg Tablet] 500 mg PO BID tablet 07/26/20 Aspirin [Ecotrin 81 mg EC Tablet] 81 mg PO DAILY tabec 07/26/20 Cholecalciferol (Vitamin D3) [Vitamin D3 1000 Unit Tablet] 2,000 unit PO DAILY tablet 07/26/20 Ferrous Sulfate [Feosol 325 mg Tablet] 325 mg PO DAILY tablet 07/26/20 Prednisone 10 mg PO DAILY #48 tab.ds.pk 07/26/20 Zinc Sulfate [Zinc-220 Capsule] 220 mg PO DAILY capsule 07/26/20 Ferrous Sulfate [Feosol 325 mg Tablet] 325 mg PO BIDPCBS #60 tablet 07/31/20 Megestrol Acetate [Megace Allyn 400 mg/10 ml Udcup] 400 mg PO DAILY #30 udc 07/31/20 History of Present Illiness History of Present Illness: H&P per Dr. Dolan: JAVIER MARTINEZ is a 79 year old male with a history of COPD on 3 L intranasal oxygen at home iron deficiency anemia, recent history of GI bleed for which he was scheduled to have outpatient endoscopy on his last discharge now is brought in by EMS for adult onset worsening of shortness of breath. Patient has nebulizer at home and despite using multiple times he symptoms fail to improve. He was given breathing treatment, Solu-Medrol and magnesium during transfer by EMS and he reports interval improvement in his symptoms. He was recently diagnosed for COVID-19 on 07/16/2020 when he was screened by her to undergoing endoscopy and he was apparently doing well since discharge until his shortness of breath got worse today. He has a chronic cough and has not noticed worsening of his cough. He denies fever, chills, body aches, nausea, vomiting or diarrhea. He states that he has not noticed bright red bleeding per rectum or melena since discharge from hospital and denies any dizziness/lightheadedness. Hospital Course Hospital Course: Per original discharge summary by Dr. Richard (07/26/20): His hemoglobin has remained stable, so he was treated for a COPD exacerbation. He had tested positive for coronavirus prior to endoscopy during his last hospitalization, but he fortunately has not manifested any severe symptoms of the disease, especially considering his baseline poor lung function. He is back on his usual level of home oxygen support and said he feels about like normal. He will complete a prednisone taper at home. He will continue his Protonix and Carafate as previously prescribed. I gave him a long list of vitamin supplements that I feel like he should probably be taking about now. His labs and examination were reassuring he was discharged in stable condition. In the interim: The patient's hemoglobin has remained stable; actually trending up to 7.9 without intervention. A nuclear bleeding scan today was negative for evidence of active bleeding. Surgery was consulted; per Dr. Méndez, does not require inpatient colonoscopy at this time. The patient would be better served to recover further from his recent COVID-19 illness and to be seen as an outpatient for colonoscopy and/or EGD in approximately 4 to 6 weeks. The patient received only 1 unit PRBC earlier in his admission on 07/23/2020. His respiratory status has improved and he is now maintaining oxygen saturations on his baseline oxygen requirement of 3 L/min. Patient reports that he is at his baseline respiratory status. He is encouraged to follow-up with his established training systems officer, Dr. Junior, in approximately 4 weeks. Patient is discharged home, in fair but stable condition, with home health services. He is advised to follow-up with his training systems officer in 4 to 6 weeks, with Dr. Méndez in 4 to 6 weeks, and with his primary care provider, Dr. Tuttle, in approximately 1 week. He is advised to take his medications as prescribed. Return to the emergency department, as needed, for concerning symptoms. Due to the patient's treatment of both COPD exacerbation and COVID-19 with IV steroids; he is discharged home on a steroid taper. He has also been prescribed ferrous sulfate supplementation, Megace, vitamin C, vitamin D, and zinc. Physical Exam Vital Signs: Temp Pulse Resp BP Pulse Ox 98.1 F 73 18 115/55 L 100 07/31/20 11:40 07/31/20 14:24 07/31/20 14:24 07/31/20 11:40 07/31/20 11:40 Intake & Output 07/30/20 07/31/20 08/01/20 06:59 06:59 06:59 Intake Total 2369 1154 480 Output Total 0231 1400 1300 Balance 294 -246 -820 Weight 44.3 kg 42.7 kg General appearance: PRESENT: no acute distress, thin - Cachectic, well- developed, other - Frail, elderly, chronically ill-appearing Head exam: PRESENT: atraumatic, normocephalic Eye exam: PRESENT: conjunctiva pink, EOMI, PERRLA. ABSENT: scleral icterus Mouth exam: PRESENT: moist, tongue midline Neck exam: ABSENT: carotid bruit, JVD, lymphadenopathy, thyromegaly Respiratory exam: PRESENT: clear to auscultation cordell, symmetrical, unlabored, other - Baseline oxygen requirement. ABSENT: rales, rhonchi, wheezes Cardiovascular exam: PRESENT: RRR, +S1, +S2. ABSENT: diastolic murmur, rubs, systolic murmur Pulses: PRESENT: normal dorsalis pedis pul Vascular exam: PRESENT: normal capillary refill GI/Abdominal exam: PRESENT: normal bowel sounds, soft. ABSENT: distended, guarding, mass, organolmegaly, rebound, tenderness Rectal exam: PRESENT: deferred Extremities exam: PRESENT: full ROM. ABSENT: calf tenderness, clubbing, pedal edema Musculoskeletal exam: PRESENT: ambulatory Neurological exam: PRESENT: alert, awake, oriented to person, oriented to place, oriented to time, oriented to situation, CN II-XII grossly intact. ABSENT: motor sensory deficit Psychiatric exam: PRESENT: appropriate affect, normal mood. ABSENT: homicidal ideation, suicidal ideation Skin exam: PRESENT: dry, intact, warm. ABSENT: cyanosis, rash Results Laboratory Results: WBC 12.1 10^3/uL (4.0-10.5) H 07/31/20 05:30 RBC 2.72 10^6/uL (4.35-5.55) L 07/31/20 05:30 Hgb 7.9 g/dL (13.5-17.0) L 07/31/20 05:30 Hct 24.3 % (37.9-51.0) L 07/31/20 05:30 MCV 89 fl (80-97) 07/31/20 05:30 MCH 29.1 pg (27.0-33.4) 07/31/20 05:30 MCHC 32.6 g/dL (32.0-36.0) 07/31/20 05:30 RDW 17.0 % (11.5-14.0) H 07/31/20 05:30 Plt Count 233 10^3/uL (150-450) 07/31/20 05:30 Lymph % (Auto) 6.7 % (13-45) L 07/31/20 05:30 Hinds % (Auto) 4.3 % (3-13) 07/31/20 05:30 Eos % (Auto) 0.0 % (0-6) 07/31/20 05:30 Baso % (Auto) 0.0 % (0-2) 07/31/20 05:30 Reticulocyte # 0.050 10^6/uL (0.028-0.122) 07/30/20 06:17 Absolute Neuts (auto) 10.8 10^3/uL (1.7-8.2) H 07/31/20 05:30 Absolute Lymphs (auto) 0.8 10^3/uL (0.5-4.7) 07/31/20 05:30 Absolute Monos (auto) 0.5 10^3/uL (0.1-1.4) 07/31/20 05:30 Absolute Eos (auto) 0.0 10^3/uL (0.0-0.6) 07/31/20 05:30 Absolute Basos (auto) 0.0 10^3/uL (0.0-0.2) 07/31/20 05:30 Total Counted 100 07/30/20 06:17 Seg Neutrophils % 89.0 % (42-78) H 07/31/20 05:30 Seg Neuts % (Manual) 92 % (42-78) H 07/30/20 06:17 Band Neutrophils % 1 % (3-5) L 07/23/20 05:09 Lymphocytes % (Manual) 4 % (13-45) L 07/30/20 06:17 Atypical Lymphs % 1 % (0) 07/23/20 05:09 Monocytes % (Manual) 4 % (3-13) 07/30/20 06:17 Eosinophils % (Manual) 0 % (0-6) 07/30/20 06:17 Basophils % (Manual) 0 % (0-2) 07/30/20 06:17 Abs Neuts (Manual) 9.8 10^3/uL (1.7-8.2) H 07/30/20 06:17 Abs Lymphs (Manual) 0.4 10^3/uL (0.5-4.7) L 07/30/20 06:17 Abs Monocytes (Manual) 0.4 10^3/uL (0.1-1.4) 07/30/20 06:17 Absolute Eos (Manual) 0.0 10^3/uL (0.0-0.6) 07/30/20 06:17 Abs Basophils (Manual) 0.0 10^3/uL (0.0-0.2) 07/30/20 06:17 Toxic Vacuolation PRESENT 07/31/20 05:30 Clumped Platelets PRESENT 07/30/20 06:17 Platelet Comment ADEQUATE 07/31/20 05:30 Polychromasia SLIGHT 07/29/20 05:58 Hypochromasia SLIGHT 07/28/20 06:12 Poikilocytosis SLIGHT 07/29/20 05:58 Basophilic Stippling PRESENT 07/31/20 05:30 Anisocytosis 1+ 07/31/20 05:30 Target Cells SLIGHT 07/21/20 16:15 Tear Drop Cells SLIGHT 07/26/20 05:25 Ovalocytes SLIGHT 07/31/20 05:30 Rouleaux SLIGHT 07/27/20 05:28 Schistocytes SLIGHT 07/29/20 05:58 Retic Count (auto) 1.89 % (0.66-2.85) 07/30/20 06:17 D-Dimer 0.28 ug/mL (0.00-0.50) 07/21/20 22:55 VBG pH 7.33 (7.30-7.42) 07/22/20 08:07 VBG pCO2 56.9 mmHg (35-63) 07/22/20 08:07 VBG HCO3 29.6 mmol/L (20-32) 07/22/20 08:07 VBG Base Excess 2.9 mmol/L 07/22/20 08:07 Sodium 136.2 mmol/L (137-145) L 07/31/20 05:30 Potassium 5.0 mmol/L (3.6-5.0) 07/31/20 05:30 Chloride 97 mmol/L (98-107) L 07/31/20 05:30 Carbon Dioxide 39 mmol/L (22-30) H 07/31/20 05:30 Anion Gap 0 (5-19) L 07/31/20 05:30 BUN 33 mg/dL (7-20) H 07/31/20 05:30 Creatinine 0.86 mg/dL (0.52-1.25) 07/31/20 05:30 Est GFR ( Amer) > 60 (>60) 07/31/20 05:30 Est GFR (MDRD) Non-Af > 60 (>60) 07/31/20 05:30 Glucose 95 mg/dL (75-110) 07/31/20 05:30 Calcium 8.3 mg/dL (8.4-10.2) L 07/31/20 05:30 Iron 15.6 ug/dL (49-181) L 07/30/20 06:17 TIBC 309 ug/dL (250-450) 07/30/20 06:17 % Saturation 5 % 07/30/20 06:17 Ferritin 28.80 ng/mL (17.9-464.0) 07/30/20 06:17 Total Bilirubin 0.4 mg/dL (0.2-1.3) 07/31/20 05:30 Direct Bilirubin 0.1 mg/dL (0.0-0.4) 07/31/20 05:30 Neonat Total Bilirubin Not Reportable 07/31/20 05:30 Neonat Direct Bilirubin Not Reportable 07/31/20 05:30 Neonat Indirect Bili Not Reportable 07/31/20 05:30 AST 36 U/L (17-59) 07/31/20 05:30 ALT 42 U/L (<50) 07/31/20 05:30 Alkaline Phosphatase 62 U/L (38-126) 07/31/20 05:30 Creatine Kinase < 20 U/L (55-170) L 07/21/20 16:15 Creatine Kinase Cancelled 07/21/20 16:15 CK-MB (CK-2) 0.88 ng/mL (<4.55) 07/21/20 16:15 Troponin I 0.020 ng/mL 07/21/20 16:15 C-Reactive Protein 56.2 mg/L (<10.0) H 07/21/20 16:15 NT-Pro-B Natriuret Pep 842 pg/mL (<450) H 07/21/20 16:15 Total Protein 5.1 g/dL (6.3-8.2) L 07/31/20 05:30 Albumin 2.8 g/dL (3.5-5.0) L 07/31/20 05:30 Vitamin B12 446.0 pg/mL (239-931) 07/30/20 06:17 Folate 11.70 ng/mL (>2.76) 07/30/20 06:17 Urine Color YELLOW 07/21/20 22:12 Urine Appearance SLIGHTLY-CLOUDY 07/21/20 22:12 Urine pH 5.0 (5.0-9.0) 07/21/20 22:12 Ur Specific [place] 1.012 07/21/20 22:12 Urine Protein NEGATIVE mg/dL (NEGATIVE) 07/21/20 22:12 Urine Glucose (UA) NEGATIVE mg/dL (NEGATIVE) 07/21/20 22:12 Urine Ketones NEGATIVE mg/dL (NEGATIVE) 07/21/20 22:12 Urine Blood NEGATIVE (NEGATIVE) 07/21/20 22:12 Urine Nitrite NEGATIVE (NEGATIVE) 07/21/20 22:12 Urine Bilirubin NEGATIVE (NEGATIVE) 07/21/20 22:12 Urine Urobilinogen NEGATIVE mg/dL (<2.0) 07/21/20 22:12 Ur Leukocyte Esterase TRACE (NEGATIVE) H 07/21/20 22:12 Urine WBC (Auto) 2 /HPF 07/21/20 22:12 Urine RBC (Auto) 0 /HPF 07/21/20 22:12 U Hyaline Cast (Auto) 1 /LPF 07/21/20 22:12 Squamous Epi Cells Auto <1 /HPF 07/21/20 22:12 Urine Mucus (Auto) RARE /LPF 07/21/20 22:12 Urine Ascorbic Acid 40 (NEGATIVE) H 07/21/20 22:12 Influenza A (RT-PCR) NEGATIVE (NEGATIVE) 07/23/20 13:35 Influenza B (RT-PCR) NEGATIVE (NEGATIVE) 07/23/20 13:35 RSV (RT-PCR) NEGATIVE (NEGATIVE) 07/23/20 13:35 SARS-CoV-2 Rap RNA(RT-PCR) POSITIVE (NEGATIVE) 07/23/20 13:35 Slides for Path Review PATHOLOGIST REVIEWED 07/22/20 07:00 Blood Type O POSITIVE 07/23/20 08:10 Antibody Screen NEGATIVE 07/23/20 08:10 Crossmatch See Detail 07/23/20 08:10 07/21/20 07/21/20 16:15 16:15 CK-MB (CK-2) 0.88 Troponin I 0.020 NT-Pro-B Natriuret Pep 842 H Impressions: Chest X-Ray 07/21/20 15:37 IMPRESSION: Severe emphysematous change without evidence of acute cardiopulmonary process. GI Bleed Scan Nuclear Medicine 07/31/20 06:00 IMPRESSION: NO DEFINITIVE EVIDENCE OF ACTIVE GASTROINTESTINAL BLEED. Plan Health Concerns: Patient is discharged home in fair, but stable, condition with home health nursing, PT, OT, aide, and nephrology social worker services. He is advised to follow-up with his primary care provider within 1 week. Follow-up with his established training systems officer, Dr. Junior, within 4 to 6 weeks. Follow-up with Dr. Méndez in 4 to 6 weeks for evaluation of anemia and presumed GI bleeding. Take medications as prescribed. Avoid known respiratory triggers. Return to the emergency department, as needed, for concerning symptoms. Time Spent: Greater than 30 Minutes Stroke Is this a Stroke Patient?: No Acute Heart Failure Is this a Heart Failure Patient?: No
[2020-08-01] MEDS: IPRATROPIUM/ALBUTEROL 0.5-2.5 MG/3 ML AMPUL NEB SCH ×3 (02:09→14:18)
[2020-08-01] MEDS: PANTOPRAZOLE SODIUM 40 MG TABLET.DR PO SCH (05:20)
[2020-08-01 06:17] LABS: ABSOLUTE LYMPHOCYTES (AUTO) 0.7 10^3/uL (0.5-4.7); ABSOLUTE MONOCYTES (AUTO) 0.7 10^3/uL (0.1-1.4); ABSOLUTE NEUT (AUTO) 8.3 10^3/uL (1.7-8.2); BASOPHILS % (AUTO) 0.2 % (0-2); EOSINOPHILS % (AUTO) 0.1 % (0-6); HEMATOCRIT 23.2 % (37.9-51.0); LYMPHOCYTES % (AUTO) 7.6 % (13-45); MEAN CORPUSCULAR HEMOGLOBIN 28.9 pg (27.0-33.4); MEAN CORPUSCULAR HGB CONC 32.4 g/dL (32.0-36.0); MEAN CORPUSCULAR VOLUME 89 fl (80-97); MONOCYTES % (AUTO) 7.2 % (3-13); PLATELET COUNT 226 10^3/uL (150-450); RED BLOOD COUNT 2.59 10^6/uL (4.35-5.55); RED CELL DISTRIBUTION WIDTH 16.9 % (11.5-14.0); SEGMENTED NEUTROPHILS % (AUTO) 84.9 % (42-78); TOTAL CELLS COUNTED % (AUTO) 100 %; WHITE BLOOD COUNT 9.8 10^3/uL (4.0-10.5)
[2020-08-01 06:37] LABS: ALBUMIN 2.6 g/dL (3.5-5.0); ALKALINE PHOSPHATASE 53 U/L (38-126); ASPARTATE AMINO TRANSFERASE 34 U/L (17-59); BILIRUBIN,DIRECT 0.1 mg/dL (0.0-0.4); BILIRUBIN,TOTAL 0.4 mg/dL (0.2-1.3); BLOOD UREA NITROGEN 32 mg/dL (7-20); CALCIUM 8.4 mg/dL (8.4-10.2); CHLORIDE 97 mmol/L (98-107); GLUCOSE 86 mg/dL (75-110); POTASSIUM 4.6 mmol/L (3.6-5.0); TOTAL PROTEIN 4.8 g/dL (6.3-8.2)
[2020-08-01 06:42] LABS: CARBON DIOXIDE 39 mmol/L (22-30)
[2020-08-01 06:49] LABS: HEMOGLOBIN 7.5 g/dL (13.5-17.0)
[2020-08-01 07:24] LABS: ANION GAP 1 (5-19)
[2020-08-01] MEDS: BUDESONIDE NEB 0.5 MG/2 ML AMPUL NEB SCH (07:50)
[2020-08-01] MEDS ORDERED: NORMAL SALINE 250 ML IV PRN ×2 (08:47)
[2020-08-01] MEDS: SUCRALFATE 1 GM TABLET PO SCH ×2 (08:52→10:43)
[2020-08-01] MEDS: FERROUS SULFATE 325 MG TABLET PO SCH (08:52)
[2020-08-01] MEDS: ZINC SULFATE 220 MG CAPSULE PO SCH (10:43)
[2020-08-01] MEDS: ASPIRIN 81 MG TABLET, ENT COATED PO SCH (10:43)
[2020-08-01] MEDS: ROFLUMILAST 500 MCG TABLET PO SCH (10:43)
[2020-08-01] MEDS: CHOLECALCIFEROL (D3) 1,000 UNIT (25 MCG) TABLET PO SCH (10:43)
[2020-08-01] MEDS: PREDNISONE 20 MG TABLET PO SCH (10:43)
[2020-08-01] MEDS: ASCORBIC ACID 500 MG TABLET PO SCH (10:43)
[2020-08-01] MEDS: IPRATROPIUM BROMIDE 0.06% NASAL SPRAY 15 ML NASL SCH (10:44)
[2020-08-01] MEDS: MEGESTROL ACETATE SUSP 400 MG/10 ML UDCUP PO SCH (10:44)
[2020-08-01] MEDS: FLUTICASONE PROPIONATE HFA 110 MCG/PUFF 12 GM MDI IH SCH (10:44)
[2020-08-01 16:25] VITALS: BP 120/65
--- NOTE | 2020-08-01 17:02 | PDOC PROGRESS REPORT ---
Subjective Date:: 08/01/20 Subjective:: Patient was seen on afternoon rounds. He was found resting in bed, comfortably, on his baseline oxygen requirement. He reports that his respiratory status is at his baseline status. He denies any afshan blood per rectum, melena, and hematochezia. He reports some fatigue and continued productive cough but otherwise reports that he is feeling well and is looking forward to his discharge today. He further denies fever, chills, chest pain, palpitations, abdominal pain, nausea and vomiting. He has no questions or concerns at this time. No concerns per nursing. Reason For Visit: COPD EXACERBATION CHRONIC HYPOXIC AND HYPERCAPNIC Physical Exam Vital Signs: Temp Pulse Resp BP Pulse Ox 98.7 F 87 19 120/65 97 08/01/20 16:26 08/01/20 16:26 08/01/20 16:26 08/01/20 16:26 08/01/20 16:26 Intake & Output 07/31/20 08/01/20 08/02/20 06:59 06:59 06:59 Intake Total 1154 580 350 Output Total 1400 2100 Balance -246 -1520 350 Weight 42.7 kg 42.7 kg 42.7 kg General appearance: PRESENT: no acute distress, cooperative, thin - Cachectic, well-developed, other - Frail, elderly, chronically ill-appearing Head exam: PRESENT: atraumatic, normocephalic Eye exam: PRESENT: conjunctiva pink, EOMI, PERRLA. ABSENT: scleral icterus Mouth exam: PRESENT: moist, tongue midline Neck exam: ABSENT: carotid bruit, JVD, lymphadenopathy, thyromegaly Respiratory exam: PRESENT: clear to auscultation cordell, prolonged expiratory phas, symmetrical, unlabored, other - Baseline oxygen requirement. ABSENT: rales, rhonchi, wheezes Cardiovascular exam: PRESENT: RRR. ABSENT: diastolic murmur, rubs, systolic murmur Pulses: PRESENT: normal dorsalis pedis pul Vascular exam: PRESENT: normal capillary refill Extremities exam: PRESENT: full ROM. ABSENT: calf tenderness, clubbing, pedal edema Musculoskeletal exam: PRESENT: ambulatory Neurological exam: PRESENT: alert, awake, oriented to person, oriented to place, oriented to time, oriented to situation, CN II-XII grossly intact. ABSENT: motor sensory deficit Psychiatric exam: PRESENT: appropriate affect, normal mood. ABSENT: homicidal ideation, suicidal ideation Skin exam: PRESENT: dry, intact, warm. ABSENT: cyanosis, rash Results Laboratory Results: 08/01/20 05:16 08/01/20 05:16 08/01/20 08/01/20 08/01/20 05:16 05:16 12:20 WBC 9.8 RBC 2.59 L Hgb 7.5 L Hct 23.2 L MCV 89 MCH 28.9 MCHC 32.4 RDW 16.9 H Plt Count 226 Seg Neutrophils % 84.9 H Sodium 137.2 Potassium 4.6 Chloride 97 L Carbon Dioxide 39 H Anion Gap 1 L BUN 32 H Creatinine 0.85 Est GFR ( Amer) > 60 Glucose 86 Calcium 8.4 Total Bilirubin 0.4 AST 34 Alkaline Phosphatase 53 Total Protein 4.8 L Albumin 2.6 L Blood Type O POSITIVE Antibody Screen NEGATIVE 07/21/20 07/21/20 07/21/20 16:15 16:15 16:15 Creatine Kinase < 20 L CK-MB (CK-2) 0.88 Troponin I 0.020 NT-Pro-B Natriuret Pep 842 H 07/21/20 16:15 Creatine Kinase Cancelled CK-MB (CK-2) Troponin I NT-Pro-B Natriuret Pep Impressions: Chest X-Ray 07/21/20 15:37 IMPRESSION: Severe emphysematous change without evidence of acute cardiopulmonary process. GI Bleed Scan Nuclear Medicine 07/31/20 06:00 IMPRESSION: NO DEFINITIVE EVIDENCE OF ACTIVE GASTROINTESTINAL BLEED. Assessment and Plan - Diagnosis (1) Acute on chronic respiratory failure with hypoxia and hypercapnia Is this a current diagnosis for this admission?: Yes Plan: Acute exacerbation has resolved. Now with chronic respiratory failure with hypoxia and hypercapnia secondary to advanced COPD and CHF. Unfortunately, the patient is also recovering from COVID-19 pneumonia and may have chronic worsening of his baseline respiratory status. (2) Anemia Qualifiers: Anemia type: unspecified type Qualified Code(s): D64.9 - Anemia, unspecified Is this a current diagnosis for this admission?: Yes Plan: Nuclear bleeding scan was negative for active bleeding. Surgery was consulted for evaluation for EGD and/or colonoscopy. They recommend outpatient follow-up in 4 to 6 weeks after fully recovering from COVID-19. Hemoglobin overall stable in the mid to high sevens, slight downward drift today to 7.5. Patient denies blood per rectum, melena, or hematochezia. As there may be some occult blood loss contributing to his iron deficiency anemia, he is provided 1 unit PRBCs prior to discharge. (3) Cachexia Is this a current diagnosis for this admission?: Yes Plan: Continue Megace. PCP follow-up. (4) CHF (congestive heart failure) Qualifiers: Heart failure type: systolic Heart failure chronicity: chronic Qualified Code(s): I50.22 - Chronic systolic (congestive) heart failure Is this a current diagnosis for this admission?: Yes Plan: Stable and without exacerbation at this time. Continue home medication regiment of continue home medication regiment. Outpatient PCP follow-up. (5) COPD (chronic obstructive pulmonary disease) Qualifiers: COPD type: unspecified COPD Qualified Code(s): J44.9 - Chronic obstructive pulmonary disease, unspecified Is this a current diagnosis for this admission?: Yes Plan: COPD exacerbation has resolved. Continue home medication regiment. Continue supplemental oxygen. Discharged on steroid taper. Outpatient PCP and pulmonology follow-up. (6) COVID-19 virus detected Is this a current diagnosis for this admission?: Yes Plan: Continue vitamin C, vitamin D, and zinc supplementation. Discharged on steroid taper. (7) Iron deficiency anemia due to chronic blood loss Is this a current diagnosis for this admission?: Yes Plan: Continue multivitamin and iron supplementation. Outpatient PCP, hematology, and surgery (for EGD and colonoscopy) follow-up. (8) Protein-energy malnutrition Qualifiers: Protein-calorie malnutrition severity: moderate Qualified Code(s): E44.0 - Moderate protein-calorie malnutrition Is this a current diagnosis for this admission?: Yes (9) Pulmonary hypertension, mild Is this a current diagnosis for this admission?: Yes Plan: Continue intranasal oxygen (10) Systolic CHF, chronic Is this a current diagnosis for this admission?: Yes Plan: Currently not in acute exacerbation Continue home medications - Time Time Spent with patient: 25-34 minutes Medications reviewed and adjusted accordingly: Yes Anticipated Discharge Disposition: Home with Home Health Anticipated Discharge Timeframe: Today
[2020-08-01 17:18] LABS: HEMATOCRIT 28.5 % (37.9-51.0); HEMOGLOBIN 9.5 g/dL (13.5-17.0); MEAN CORPUSCULAR HEMOGLOBIN 29.6 pg (27.0-33.4); MEAN CORPUSCULAR HGB CONC 33.5 g/dL (32.0-36.0); MEAN CORPUSCULAR VOLUME 88 fl (80-97); PLATELET COUNT 241 10^3/uL (150-450); RED BLOOD COUNT 3.22 10^6/uL (4.35-5.55); RED CELL DISTRIBUTION WIDTH 17.1 % (11.5-14.0); WHITE BLOOD COUNT 13.3 10^3/uL (4.0-10.5)
== END 2020-08-01 17:01 | disposition home or self-care (01) ==
LOC: ER 15:05 → EH 22:21 → INTOOBSV 22:21 → ICU 07-22 12:33 → 3W 07-22 22:41
PROVIDERS: ADMIT Student in an Organized Health Care Education/Training Program; ATTEND Registered Nurse
DX: U07.1 COVID-19 (principal); J44.1 Chronic obstructive pulmonary disease with (acute) exacerbation; J96.21 Acute and chronic respiratory failure with hypoxia; J96.22 Acute and chronic respiratory failure with hypercapnia; D50.0 Iron deficiency anemia secondary to blood loss (chronic); E46 Unspecified protein-calorie malnutrition; I27.20 Pulmonary hypertension, unspecified; I50.22 Chronic systolic (congestive) heart failure; R64 Cachexia; Z79.899 Other long term (current) drug therapy; Z79.82 Long term (current) use of aspirin; Z99.81 Dependence on supplemental oxygen
CPT/HCPCS: 93005; 94640 ×12; 99285; 86900 ×2; 86901 ×2; 36415 ×12; 82553; 36430 ×2; 86850 ×2; 82607; 82550; 82728 ×2; 82746; 83540; 83550; 85025 ×10; 85027 ×2; 0241U ×4; 86140; 85045; 80053 ×12; 81001; 84484; 86920 ×2; 85379; 82803 ×2; 83880; 71045; 78278; 93010; 94660 ×7; G0378 ×14; P9016 ×2; A9560; A9270 ×116; J2920 ×3; J3480 ×3; J3490 ×11; J7040; J1642; Q9969; C9803; J7512